=== PATIENT | male | born 1940 | race Caucasian/White ===

== ENCOUNTER 2016-09-17 10:31 | Outpatient (CLI) | payer MEDICARE, OTHER ==
[~2016-09-17] VITALS: Ht 175.3 cm; Wt 79.5 kg
--- NOTE | ~2016-09-17 | HEMODYNAMI ---
PATIENT:JAZMIN SEGOVIA MEDICAL RECORD: [id number] : 38 LOCATION:[facility] D.2114 ADMISSION DATE: 09/17/16 Generatedon:09/17/201615:45 Patient name: JAZMIN SEGOVIA Patient #: [id number] SSN: : Date of study: 09/17/2016 Page: Of Hemodynamic Procedure Report Patient Data Patient Demographics Procedure consent was obtained First Name: JAZMIN Gender: Male Last Name: JULIETTE : 1940 [facility] Initial: E Age: 76 year(s) Patient #: [id number] Race: Additional ID: [id number] Contact details [address]: [address] [place] [address] State: [place] City: [place] Zip code: [address] Past Medical History History of disease Date Diagnosis Comments CAD Admission Admission Data Admission Date: 09/17/2016 Admission Time: 11:13 Room #: D.2114 Procedure Procedure Types Cath Procedure Diagnostic Procedure [facility] w/Coronaries FFR/IVUS Intra-Coronary IVUS Initial Intra-Coronary IVUS Additional PCI Procedure Coronary Stent Initial Miscellaneous Procedures Moderate Sedation up to 30 minutes Procedure Description Procedure Date Procedure Date: 09/17/2016 Procedure Start Time: 15:22 Procedure End Time: 15:44 Procedure Staff Name Function Ayo Starkey MD Performing Physician Carolann Jacobsen RN Nurse Jeff Meyrs RT Monitor Carlos A Freeman RT Scrub Procedure Data Cath Procedure Fluoroscopy Diagnostic fluoroscopy Total fluoroscopy Time: 4.1 time: 4.1 min min Diagnostic fluoroscopy Total fluoroscopy dose: 872 dose: 872 mGy mGy Contrast Material Contrast Material Type Amount (ml) Isovue 300 90 Entry Location Entry Primary Successful Side Size Upsize Upsize Entry Closure Succes sful Closure Location (Fr) 1 (Fr) 2 (Fr) Remarks Device Remarks Femoral Right 5 Fr 6 Fr Exoseal artery Short Estimated blood loss: 10 ml Diagnostic catheters Device Type Used For End Catheter Placement Cordis 5Fr Pigtail Procedure Catheter (MP) Cordis 5Fr JL 4.0 Procedure Catheter (MP) Cordis 5Fr 3DRC Catheter Procedure (MP) Procedure Complications No complications Procedure Medications Medication Administration Route Dosage Oxygen NC 2 l/min Heparin Flush Bag added to field 2 bags (1000units/500ml NS) Lidocaine 2% added to field 20 Versed I.V. 1 mg Fentanyl I.V. 50 mcg Versed I.V. 1 mg Fentanyl I.V. 50 mcg Heparin Bolus I.V. 4000 units Hemodynamics Rest Heart Rate: 51 (bpm) Snapshots Pre Cath Intra NCS Post Cath Vital Signs Time Heart Resp SPO2 NIBP (mmHg) Rhythm Pain Sedation Rate (ipm) (%) Status Level (bpm) 15:10:45 58 17 98 134/72(108) NSR 0 (11) 10(A) , No pain 15:14:53 60 21 99 132/78(111) NSR 0 (11) 10(A) , No pain 15:19:04 58 20 98 121/71(91) NSR 0 (11) 10(A) , No pain 15:23:14 59 18 96 121/56(83) NSR 0 (11) 9(A) , No pain 15:27:20 60 15 96 120/72(82) NSR 0 (11) 9(A) , No pain 15:31:26 58 15 96 117/69(83) NSR 0 (11) 9(A) , No pain 15:35:34 60 15 96 102/63(76) NSR 0 (11) 9(A) , No pain 15:40:10 60 16 100 130/63(96) NSR 0 (11) 9(A) , No pain Medications Time Medication Route Dose Verified Delivered Reason Notes Effectiveness by by 15:09:41 Oxygen NC 2 Ayo Carolann Per physician l/min Lalito Jacobsen RN 15:09:48 Heparin Flush added 2 Ayo Rollins used for Bag to bags Lalito Starkey MD procedure (1000units/500ml field NS) 15:09:55 Lidocaine 2% added 20ml Ayo Rollins used for to vial Lalito Starkey MD procedure field 15:16:44 Versed I.V. 1 mg Ayo Carolann for sedation Lalito Jacobsen RN 15:16:50 Fentanyl I.V. 50 Ayo Carolann for sedation mcg Lalito Jacobsen RN 15:18:26 Versed I.V. 1 mg Ayo Carolann for sedation Lalito Jacobsen RN 15:18:28 Fentanyl I.V. 50 Ayo Carolann for sedation mcg Lalito Jacobsen RN 15:29:00 Heparin Bolus I.V. 4000 Ayo Clarosecca for dose units Lalito Jacobsen RN anticoagulation verified wtih dr starkey Procedure Log Time Note 14:40:30 Jeff Myers RT(R) sent for patient. Start room use. 14:45:31 Time tracking: Regular hours 14:45:35 Plan of Care:Hemodynamics will remain stable., Cardiac rhythm will remain stable., Comfort level will be maintained., Respiratory function will remain adequate., Patient/ family verbilizes understanding of procedure., Procedure tolerated without complication., Recovers from procedure without complications.. 15:05:35 Patient received from PCU to [facility] 2 Alert and oriented. Tansferred to table in Supine position. 15:05:36 Warm blankets applied, and jose maria hugger turned on for patient comfort. 15:05:37 Correct patient and procedure confirmed by team. 15:05:38 Signed procedure consent form obtained from patient. 15:05:39 ECG and BP/O2 sat monitors applied to patient. 15:09:30 Vital chart was started 15:09:41 Oxygen 2 l/min NC was administered by Carolann Jacobsen RN; Per physician; 15:09:48 Heparin Flush Bag (1000units/500ml NS) 2 bags added to field was administered by Ayo Starkey MD; used for procedure; 15:09:55 Lidocaine 2% 20ml vial added to field was administered by Ayo Starkey MD; used for procedure; 15:15:32 Baseline sample Acquired. 15:15:38 Rhythm: sinus bradycardia 15:15:39 Full Disclosure recording started 15:15:43 H&P Date Dictated: 09/17/2016 Within 30 days and on chart.. 15:15:43 Pre-procedure instructions explained to patient. 15:15:44 Pre-op teaching completed and patient verbalized understanding. 15:15:45 Family in waiting room. 15:15:46 Patient NPO since Midnight. 15:15:47 Is the patient allergic to Iodine/contrast media? No. 15:15:48 Is patient on blood thinner?Yes 15:15:51 ACC The patient was administered the following blood thiners within the last 24 hours: ACCPlavix 15:15:53 Patient diabetic? No. 15:15:55 Previous problem with sedation/anesthesia? No ? 15:15:56 Snore? No 15:15:57 Sleep apnea? No 15:15:58 Deviated septum? No 15:15:58 Opens mouth fully? Yes 15:15:59 Sticks out tongue? Yes 15:16:01 Airway obstruction? No ? 15:16:06 Dentures? Yes IN 15:16:09 Pre procedure: right dorsailis pedis pulse 1+ Palpable, but thready & weak; easily obliterated 15:16:12 Patient pain scale 0/10 ?. 15:16:16 IV patent on arrival in right forearm with 0.9% NaCl at KVO. 15:16:18 Lab results completed and on chart. 15:16:20 Right groin area was prepped with chlora-prep and draped in sterile fashion 15:16:21 Alarms reviewed by R. N. 15:16:21 Sharps counted by scrub and verified by R.N. 15:16:22 --------ALL STOP TIME OUT------ 15:16:23 Final Timeout: patient, procedure, and site verified with staff and physician. All members of the team are in agreement. 15:16:25 Right groin site verified by team. 15:16:29 Physical assessment completed. ASA score P 2 - A patient with mild systemic disease as per Ayo Starkey MD. 15:16:32 Sedation plan: IV Moderate Sedation Versed, Fentanyl 15:16:44 Versed 1 mg I.V. was administered by Carolann Jacobsen RN; for sedation; 15:16:50 Fentanyl 50 mcg I.V. was administered by Carolann Jacobsen RN; for sedation; 15:18:26 Versed 1 mg I.V. was administered by Carolann Jacobsen RN; for sedation; 15:18:28 Fentanyl 50 mcg I.V. was administered by Carolann Jacobsen RN; for sedation; 15:18:33 Zero performed for pressure channel P1 15:18:36 Use device set Femoral Dx 15:18:38 Tegaderm 4 x 4 opened to sterile field. 15:18:39 Acist Hand Control opened to sterile field. 15:18:39 Acist Manifold opened to sterile field. 15:18:40 Acist Syringe opened to sterile field. 15:18:41 Bag Decanter opened to sterile field. 15:18:42 Medline Cath Pack opened to sterile field. 15:18:42 Terumo 5Fr [place] Sheath opened to sterile field. 15:18:42 St Arnold 260cm J .035 wire opened to sterile field. 15:18:43 Diagnostic Infinity 5Fr Multipack catheter opened to sterile field. 15:22:20 Procedure started. 15:22:23 Local anesthetic to right femoral artery with Lidocaine 2% by Ayo Starkey MD.INITIAL ACCESS ONLY 15:22:32 A 5 Fr sheath was inserted into the Right Femoral artery 15:22:54 A Cordis 5Fr Pigtail Catheter (MP) was advanced over the wire and used for Procedure. 15:23:24 LV angiography performed. 15:23:25 LV gram done using PHILIP 15:23:44 EF : 25 % 15:23:58 LV hemodynamics recorded. 15:24:02 Injector settings: Ml/sec: 10, Volume: 20, 15:24:14 Catheter removed. 15:24:32 A Cordis 5Fr JL 4.0 Catheter (MP) was advanced over the wire and used for Procedure. 15:25:09 LCA angiography performed. 15:25:22 Catheter removed. 15:25:33 A Cordis 5Fr 3DRC Catheter (MP) was advanced over the wire and used for Procedure. 15:26:07 RCA angiography performed. 15:26:22 Catheter removed. 15:27:23 Terumo 6Fr [place] Sheath opened to sterile field. 15:27:24 Rodriguez Whisper J 300cm 0.014 guide wire opened to sterile field. 15:27:25 Rentamus BasixCompak Inflation Kit opened to sterile field. 15:27:26 Cordis 6FR XBLAD 3.5 guide catheter opened to sterile field. 15:27:26 Verndale Hoh Eagleye IVUS Catheter opened to sterile field. 15:27:39 Sheath upsized to a 6 Fr Short. 15:28:05 6 Fr XBLAD 3.5 guide catheter was inserted over the wire 15:29:00 Heparin Bolus 4000 units I.V. was administered by Carolann Jacobsen RN; for anticoagulation; dose verified wtih dr starkey 15:29:00 Whisper wire advanced. 15:29:41 Wire advanced across lesion. 15:30:02 IVUS catheter advanced over wire. 15:30:48 IVUS pass to LAD lesion performed. 15:31:27 Wire redirected to CIRC. 15:31:34 IVUS pass to Circ lesion performed. 15:31:43 IVUS catheter removed over wire. 15:32:11 Wire redirected to LAD. 15:35:14 Inflation Number: 1 A Medtronic Resolute 3.5 X 22 stent was prepped and advanced across the Mid LAD. The stent was deployed at 17 MEENAKSHI for 0:10 (min:sec). 15:35:32 Inflation number: 2 The stent balloon was then re-inflated across the Mid LAD to 17 MEENAKSHI for 0:10 (min:sec). 15:37:45 ACC Post-intervention ANA Flow is 3. 15:37:46 Stent catheter was removed intact over wire. 15:37:46 Wire removed. 15:37:46 Guide catheter removed. 15:38:11 Sheath removed intact; hemostasis achieved with Exoseal to the Right Femoral artery. 15:38:15 Cordis 6Fr Exoseal opened to sterile field. 15:38:18 Procedure ended.(Physican Out) 15:38:42 Fluoroscopy time 04.10 minutes. 15:38:45 Fluoroscopy dose: 872 mGy 15:38:45 Flurop Dose total: 872 15:38:49 Contrast amount:Isovue 300 90ml. 15:38:50 Sharps counted by scrub and verified by R.N. 15:38:52 Insertion/operative site no bleeding no hematoma. 15:39:27 Post-op/insertion site Right Femoral artery dressed using a 4 x 4 and Tegaderm. 15:39:28 Post Procedure Pulses reassessed and unchanged 15:39:32 Post-procedure physical assessment completed. ASA score P 2 - A patient with mild systemic disease as per Ayo Starkey MD. 15:39:34 Post procedure rhythm: unchanged. 15:39:36 Estimated blood loss: 10 ml 15:39:38 Post procedure instruction explained to patient.Patient verbalizes understanding. 15:39:39 Patient needs reinforcement of post procedure teaching. 15:40:09 Procedure type changed to Cath procedure, Diagnostic procedure, LHC, LHC w/Coronaries, FFR/IVUS, Intra-Coronary IVUS Initial, Intra-Coronary IVUS Additional, PCI procedure, Coronary Stent Initial, Miscellaneous Procedures, Moderate Sedation up to 30 minutes 15:40:19 Procedure Complication : No complications 15:40:51 Procedure and supply charges have been captured, reviewed, submitted and are correct. 15:43:53 Vital chart was stopped 15:43:54 See physician's report for complete and final results. 15:43:58 Report given to PCU. 15:44:02 Patient transfered to PCU with Stretcher. 15:44:05 Procedure ended. 15:44:05 Full Disclosure recording stopped 15:44:15 ACC-PCI Only Patient was given prescriptions, or instructed by Ayo Starkey MD to start/continue the following medications upon discharge: Aspirin, Plavix 15:44:16 End room use (Document Last) Intervention Summary Intervention Notes Time ActionType Lesion and Equipment Action# Pressure Duration Attributes Used 15:35:14 Place stent Mid LAD Medtronic 1 17 00:10 Resolute 3.5 X 22 stent 15:35:32 Reinflate Mid LAD Medtronic 2 17 00:10 stent Resolute balloon 3.5 X 22 stent Device Usage Item Name Manufacture Quantity Catalog Hospital Part Current Minimal Lot# / Number Charge Number Stock Stock Serial# Code Tegaderm 4 3M 1 1626W [id number] [id number] [id number] 5 x 4 Acist Hand Acist 1 97493 973890 546922 582454 5 Control Medical Systems Inc Acist Acist 1 00083 650261 593429 420424 5 Manifold Medical Systems Inc Acist Acist 1 28517 960466 597330 479865 20 Syringe Medical Systems Inc Bag Microtek 1 2002S 143901 29233 760011 5 DecLaimoon.[employer] Inc. Medline Cardinal 1 [id number] 299179 53446 386855 5 Cashually Terumo 5Fr Terumo 1 [id number] 806420 569455 157993 [address] Arnold 1 006357 507132 879756 359049 30 260cm J .035 wire Diagnostic Cardinal 1 [id number] 761180 44158 088106 30 Infinity Health 5Fr Multipack catheter Cordis 5Fr Cardinal 1 098951 5 Pigtail Health Catheter (MP) Cordis 5Fr Cardinal 1 904702 5 JL 4.0 Health Catheter (MP) Cordis 5Fr Cardinal 1 041049 5 3DRC Health Catheter (MP) Terumo 6Fr Terumo 1 POX159 536333 106109 892962 40 [place] Sheath Rodriguez Rodriguez 1 [id number] 607601 652740 431868 5 Whisper J Vascular 300cm 0.014 guide wire Merit Merit 1 QA0065 308170 538573 490809 15 STinserixEco-Source Technologies Medical Inflation Kit Cordis 6FR Cardinal 1 [id number] 437378 350307 823323 10 XBLAD 3.5 Health guide catheter Verndale Verndale 1 [id number] 890627 235915 678376 8 Hoh Eagleye IVUS Catheter Medtronic Medtronic 1 [id number] 602233 880874 5 [id number] Resolute 3.5 X 22 stent Cordis 6Fr Cardinal 1 EX600 343978 409687 266604 10 [facility] Metara Signature Audit [place] Stage Time Signature Unsigned Intra-Procedure 09/17/2016 Jeff Myers 3:45:31 PM RT(R) Signatures Monitor : Jeff Myers RT Signature : Date : Time : [address] [place] [address]
[2016-09-17 08:47] LABS: BASOPHILS 0.4 % (0.0-2.0); EOSINOPHILS 2.2 % (0-7); HEMOGLOBIN 14.1 g/dL (13.5-17.5); IMMATURE GRANULOCYTES 0.2 % (0-5); LYMPHOCYTES 17.9 % (15-50); MCH 28.1 pg (26.0-34.0); MCHC 32.8 g/dL (31.0-37.0); MCV 85.7 fL (80.0-100.0); MEAN PLATELET VOLUME 10.1 fL (7.4-10.4); MONOCYTES 10.2 % (2-11); NEUTROPHILS 69.1 % (40-80); PLATELET COUNT 246 10x3/uL (130-400); RBC 5.02 10x6/uL (4.20-6.10); RDW 15.7 % (11.5-14.5)
[2016-09-17 09:12] LABS: ALBUMIN 3.9 g/dL (3.4-5.0); ALKALINE PHOSPHATASE 64 U/L (46-116); ALT (SGPT) 23 U/L (10-68); BILIRUBIN - TOTAL 1.12 mg/dL (0.2-1.3); CALC OSMOLALITY 266 mosm/kg (275-300); CALCIUM 9.1 mg/dL (8.5-10.1); CARBON DIOXIDE 26.9 mmol/L (21.0-32.0); CHLORIDE - SERUM 100 mmol/L (98-107); CREATININE - SERUM 0.9 mg/dL (0.6-1.3); GLUCOSE 102 mg/dL (74-106); POTASSIUM - SERUM 3.8 mmol/L (3.5-5.1); PROTEIN - SERUM 7.1 g/dL (6.4-8.2); SODIUM 134 mmol/L (136-145); UREA NITROGEN 10 mg/dL (7-18); eGFR NON AFRICAN AMERICAN 87 mL/min (90-120)
[2016-09-17 09:15] LABS: CHOL - HDL RATIO 3.3 ratio (2.3-4.9); CHOLESTEROL, TOTAL 149 mg/dL (0-200); CKMB 1.9 U/L (0.0-3.6); CREATINE KINASE 109 UL (21-232); HDL CHOLESTEROL 45 mg/dL (32-96); LDL CHOLESTEROL 89 mg/dL (0-100); TRIGLYCERIDE 77 mg/dL (30-200); TROPONIN-I 0.022 ng/mL (0.000-0.060)
[~2016-09-17 10:31] MED LIST: BAYER CHEWABLE81 MG PO; COREG 3.1253.125 MG PO; PLAVIX75 MG PO; VASOTEC5 MG PO
--- NOTE | 2016-09-17 12:05 | NUR ---
TRANSFER FROM ER BY W/C. DAVIDINTED TO ROOM. CALL LIGHT IN REACH. WILL CONT. PLAN OF CARE.
[2016-09-17] MEDS ORDERED: LIVALO2 MG PO (12:13)
[2016-09-17] MEDS ORDERED: VASOTEC2.5 MG PO (12:13)
[2016-09-17] MEDS ORDERED: NORMODYNE / TR200 MG PO (12:17)
[2016-09-17 12:26] VITALS: BP 117/61; Ht 175.3 cm; Wt 79.5 kg
--- NOTE | 2016-09-17 14:54 | NUR ---
PRE-OPS GIVEN. TO NETWORK TECHNICAL ANALYST BY BED.
--- NOTE | 2016-09-17 16:02 | NUR ---
BACK FROM EVISCERATOR. VS WNL. RIGHT GROIN STABLE WITHOUT BLEEDING OR HEMATOMA NOTED. WILL MONITOR.
[2016-09-17 16:18] VITALS: BP 114/61
[2016-09-17] MEDS ORDERED: PLAVIX75 MG PO (16:38)
[2016-09-17 20:00] VITALS: BP 111/63
--- NOTE | 2016-09-19 08:41 | OP ---
PATIENT NAME: JAZMIN SEGOVIA MEDICAL RECORD: [id number] :38 LOCATION:[facility] ADMISSION DATE: SURGEON: DANYELL CARRILLO MD DATE OF OPERATION: 09/17/2016 PROCEDURES: 1. PTCA stent, LAD. 2. Intravascular ultrasound, LAD. 3. Intravascular ultrasound, left circumflex. 4. Left heart catheterization. 5. Selective coronary angiography. 6. Left ventriculogram. INDICATIONS: Angina and coronary artery disease. PROCEDURE IN DETAIL: After informed consent was obtained and after detailed explanation of risks, benefits as well as alternative therapies, the patient elected to proceed with angiogram and angioplasty. The right femoral area was prepped and draped in normal sterile fashion. The right femoral artery was cannulated via modified Seldinger technique with placement of 6-Prydeinig sheath. All catheters exchanged through this sheath. FINDINGS: Left ventriculogram was performed in standard 30-degree PHILIP view, reveals global hypokinesis throughout all segments. Overall ejection fraction 25%-30%. SELECTIVE CORONARY ANGIOGRAPHY: 1. Left main is with no significant angiographic disease. 2. Left anterior descending has greater than 70% stenosis confirmed by intravascular ultrasound in the proximal vessel. This is not stented. After this, there are stents, these are widely patent with no significant in-stent restenosis. No disease elsewise throughout the LAD or its branches. 3. Left circumflex has previously placed stents. These are widely patent with no significant restenosis. This is confirmed by intravascular ultrasound. No disease elsewhere throughout the circumflex or its branches. 4. Right coronary is small, nondominant with moderate diffuse disease. PTCA STENT OF THE LAD: The stent used was a 3.5 x 22-mm Resolute taken to 17 atmospheres. Result was 0% residual stenosis. OVERALL IMPRESSION: Successful percutaneous transluminal coronary angioplasty stent of the left anterior descending going from greater than 70% initial stenosis confirmed by intravascular ultrasound to 0% residual stenosis. TRANSINT:[id number] Voice Confirmation ID: [id number] DOCUMENT ID: [id number] DANYELL CARRILLO MD at 0841 CC: [id number] DICTATION DATE: 09/17/16 1543 CORE ASSEMBLY SUPERVISOR: 09/17/162049 [facility] CLI 09/17/16 [address] [place] [address]
--- NOTE | 2016-09-19 08:41 | DS ---
PATIENT:JAZMIN SEGOVIA :38 MEDICAL RECORD: [id number] DISCHARGE SUMMARY ADMISSION DATE: 09/17/16 DISCHARGE DATE: 09/17/16 DISCHARGE DIAGNOSES: 1. Angina. 2. Coronary artery disease. 3. Percutaneous transluminal coronary angioplasty stent of left anterior descending this admission. 4. Hypertension. HOSPITAL COURSE: Mr. Segovia presents with anginal symptomatology, found to have significant disease of the LAD. He underwent successful PTCA stent of the LAD. He was discharged home with the addition of aspirin and Plavix to his medical regimen. He will follow up with [facility] in 1 month. TRANSINT:[id number] Voice Confirmation ID: [id number] DOCUMENT ID: [id number] DANYELL CARRILLO MD at 0841 CC: [id number] DICTATION DATE: 09/17/16 1541 CONFIGURATOR: 09/18/16 0317 [facility] CLI 09/17/16 [address] [place] [address]
--- NOTE | 2016-09-19 08:41 | HP ---
PATIENT: JAZMIN SEGOVIA MEDICAL RECORD: [id number] ACCOUNT: [id number] LOCATION:[facility] : 38 ADMISSION DATE: 09/17/16 HISTORY AND PHYSICAL EXAMINATION DATE OF SERVICE: 09/17/2016 DIAGNOSES: 1. Unstable angina. 2. Coronary artery disease. 3. Previous multivessel percutaneous transluminal coronary angioplasty stent. 4. Hypertension. HISTORY OF PRESENT ILLNESS: This is a gentleman who is known to our group, status post PTCA stent, last being 1 year ago. He has had 2 days of increasing chest pain, chest discomfort compatible with angina, just like that of his previous pain. He has T-wave inversions laterally and inferiorly on his EKG. PHYSICAL EXAMINATION: GENERAL APPEARANCE: Well-nourished, well-developed, appears stated age. Level of distress, comfortable. PSYCHIATRIC: Mental status, alert, normal affect. Orientation, oriented to time, place and person. EYES: Lids and conjunctiva, noninjected. No discharge, no pallor. ENT: Lips, teeth, gums, normal dentition. Oropharynx, no cyanosis, no pallor. NECK: Carotid arteries, bilateral normal upstroke, no bruits, no thrills. JUGULAR VEINS: No jugular venous pressure or distention. CERVICAL LYMPH NODES: Nontender, nonenlarged. THYROID: Not enlarged. Nontender. No nodules. LUNGS: Respiratory effort, unlabored. CHEST: Normal curvature. No thoracic deformity. No chest wall tenderness. Percussion, resonant. Auscultation, clear. No wheezes, no rales, no rhonchi. CARDIOVASCULAR: Precordial exam, nondisplaced. No heaves or pericardial thrills. Rate and rhythm, regular. Heart sounds, normal S1, normal S2. No S3, no gallop, no rub. Systolic murmur, not heard. Diastolic murmur, not heard. EXTREMITIES: No cyanosis, no edema. Peripheral pulses, full and equal in all extremities, except as noted. No bruits appreciated. ABDOMEN: Soft, nondistended. Normal aorta. No bruit. Nontender. No masses. Liver, nontender, no hepatomegaly. Spleen, nontender, no splenomegaly. MUSCULOSKELETAL: No joint tenderness. No joint swelling. No erythema. NEUROLOGICAL: Normal gait, normal strength, normal tone. SKIN: Warm and dry. REVIEW OF SYSTEMS: The patient reports easy bruising but reports no swollen glands. The patient reports no fever, no night sweats, no significant weight gain, no significant weight loss. No significant exercise tolerance. The patient reports no dry eyes, no irritation, no vision change. Patient reports no difficulty hearing and no ear pain. Patient reports no frequent nose bleeds or nose and sinus problems. Patient reports on arm pain on exertion. No shortness of breath while lying down. No history of heart murmur. Patient reports no cough, no wheezing or coughing up blood. Patient reports no abdominal pain, no vomiting. Normal appetite. No diarrhea and not vomiting blood. No nausea and no constipation. Patient reports no incontinence. No difficulty urinating. No hematuria. No increased frequency. Patient reports no muscle aches. No weakness, no arthralgias, no back pain. No swelling of the HISTORY AND PHYSICAL [id number] JAZMIN SEGOVIA extremities. Patient reports no abnormal mole, no jaundice, no rashes. Reports no loss of consciousness. No weakness and no numbness. No seizures, dizziness, or headaches. The patient reports no depression, no sleep disturbance, feeling safe in a relationship and no alcohol abuse. Patient reports on fatigue. Reports no runny nose or sinus pressure. No itching, no hives, and no frequent sneezing. OVERALL IMPRESSION: Unstable angina with abnormal ECG, most likely he has recurrent hemodynamically significant coronary artery disease. We will proceed with coronary angiography. Further care depends upon findings of the angiography. TRANSINT:[id number] Voice Confirmation ID: [id number] DOCUMENT ID: [id number] DANYELL CARRILLO MD at 0841 CC: [id number] DICTATION DATE: 09/17/16 1105 SOLUTION CONSULTANT: 09/17/16 1157 [facility] CLI 09/17/16 [facility] [address] [place] [address]
== END 2016-09-17 20:45 | disposition home or self-care (01) ==
LOC: OBSVTIME → D.OPS 10:31 → OBSVTIME 11:13 → D.ER 11:13 → D.M2 11:13 → EDSTATUS 12:30 → D.M2 20:45 → D.OPS 20:45 → D.M2 20:45
PROVIDERS: Emergency Medicine
DX: I25.110 Atherosclerotic heart disease of native coronary artery with unstable angina pectoris (principal); Z95.5 Presence of coronary angioplasty implant and graft; I10 Essential (primary) hypertension
CPT/HCPCS: 93458; 92978; 92979; C9600

== ENCOUNTER 2017-02-08 11:58 | Emergency (ER) | payer MEDICARE, OTHER ==
[~2017-02-08 11:58] MED LIST changes: +LIVALO2 MG PO; +NORMODYNE / TR200 MG PO; +VASOTEC2.5 MG PO
== END 2017-02-08 13:10 | disposition home or self-care (01) ==
LOC: D.ER 11:58
DX: S61.012A Laceration without foreign body of left thumb without damage to nail, initial encounter (principal); W26.9XXA Contact with unspecified sharp object(s), initial encounter; Y93.89 Activity, other specified; Y92.89 Other specified places as the place of occurrence of the external cause

== ENCOUNTER → 2017-02-21 09:14 | Outpatient (CLI) | payer MEDICARE, OTHER ==
[2016-09-17 12:26] VITALS: BMI 25.9
== END | disposition home or self-care (01) ==
LOC: D.RAD 09:14
DX: R06.00 Dyspnea, unspecified (principal)

== ENCOUNTER 2017-11-30 19:31 | Emergency (ER) | payer MEDICARE, OTHER ==
[~2017-11-30] VITALS: Ht 175.3 cm; Wt 77.3 kg
[2017-11-30 19:37] VITALS: Ht 175.3 cm; Wt 77.3 kg
[2017-11-30] MEDS ORDERED: COREG6.25 MG PO (19:39)
[2017-11-30 20:14] LABS: BASOPHILS 0.4 % (0-2); EOSINOPHILS 4.9 % (0-7); HEMATOCRIT 42.1 % (42.0-54.0); HEMOGLOBIN 14.2 g/dL (13.5-17.5); IMMATURE GRANULOCYTES 0.1 % (0-5); LYMPHOCYTES 33.9 % (15-50); MCH 29.1 pg (26.0-34.0); MCHC 33.7 g/dL (31.0-37.0); MCV 86.3 fL (80.0-100.0); MEAN PLATELET VOLUME 9.6 fL (7.4-10.4); MONOCYTES 10.5 % (2-11); NEUTROPHILS 50.2 % (40-80); PLATELET COUNT 283 10x3/uL (130-400); RBC 4.88 10x6/uL (4.20-6.10); RDW 14.8 % (11.5-14.5); WBC 7.7 10x3/uL (4.8-10.8)
[2017-11-30 20:22] LABS: ALBUMIN 3.6 g/dL (3.4-5.0); ALKALINE PHOSPHATASE 60 U/L (46-116); ALT (SGPT) 23 U/L (10-68); BILIRUBIN - TOTAL 1.03 mg/dL (0.2-1.3); CALC OSMOLALITY 275 mosm/kg (275-300); CALCIUM 9.1 mg/dL (8.5-10.1); CARBON DIOXIDE 27.5 mmol/L (21.0-32.0); CHLORIDE - SERUM 102 mmol/L (98-107); GLUCOSE 113 mg/dL (74-106); POTASSIUM - SERUM 3.9 mmol/L (3.5-5.1); SODIUM 138 mmol/L (136-145); UREA NITROGEN 10 mg/dL (7-18); eGFR NON AFRICAN AMERICAN 77 mL/min (90-120)
[2017-11-30 20:34] LABS: CKMB 1.7 U/L (0.0-3.6); CREATINE KINASE 124 UL (21-232); PRO BNP 1040 pg/mL (0-450); TROPONIN-I < 0.017 ng/mL (0.000-0.060)
[2017-11-30 21:31] VITALS: BP 114/65
== END 2017-11-30 21:32 | disposition home or self-care (01) ==
LOC: D.ER 19:31
PROVIDERS: Family Medicine
DX: I48.91 Unspecified atrial fibrillation (principal); R07.9 Chest pain, unspecified; I50.9 Heart failure, unspecified; Z95.0 Presence of cardiac pacemaker; I10 Essential (primary) hypertension; I49.3 Ventricular premature depolarization; I44.7 Left bundle-branch block, unspecified

== ENCOUNTER 2018-12-08 10:37 | Inpatient (IN) | payer MEDICARE, OTHER ==
--- NOTE | ~2018-12-08 | HEMODYNAMI ---
PATIENT:JAZMIN SEGOVIA MEDICAL RECORD: [id number] : 38 [id number] ADMISSION DATE: 12/08/18 Generatedon:12/09/201811:55 Patient name: JAZMIN SEGOVIA Patient #: [id number] SSN: : Date of study: 12/09/2018 Page: Of Hemodynamic Procedure Report Patient Data Patient Demographics Procedure consent was obtained First Name: JAZMIN Gender: Male Last Name: JULIETTE : 1940 [facility] Initial: E Age: 78 year(s) Patient #: [id number] Race: Additional ID: [id number] Contact details [address]: [address] [place] [address] State: [place] City: [place] Zip code: [address] Past Medical History History of disease Date Diagnosis Comments CAD Admission Admission Data Admission Date: 12/08/2018 Admission Time: 12:13 Room #: D.2131 Weight (lbs.): 171.96 Weight (kg.): 78 Lab Results Lab Result Date: 12/09/2018 Lab Result Time: 0:00 Biochemistry Name Units Result Min Max BUN mg/dl 14 --(--*-)-- 7 18 Creatinine mg/dl 0.9 --(-*--)-- 0.6 1.3 CBC Name Units Result Min Max Hemoglobin g/dl 14.1 --(*---)-- 13.5 17.5 Procedure Procedure Types Cath Procedure Diagnostic Procedure LHC LHC w/Coronaries FFR/IVUS FFR Initial Sedation Charges Moderate Sedation up to 15 minutes PCI Procedure Coronary Stent Coronary Stent Initial Procedure Description Procedure Date Procedure Date: 12/09/2018 Procedure Start Time: 11:38 Procedure End Time: 11:54 Procedure Staff Name Function Ayo Starkey MD Performing Physician Guillermina Alejo RT Monitor Carole Rod RN Nurse Jeff Myers RT Scrub Procedure Data Cath Procedure Fluoroscopy Diagnostic fluoroscopy Total fluoroscopy Time: 2.7 time: 2.7 min min Diagnostic fluoroscopy Total fluoroscopy dose: 792 dose: 792 mGy mGy Contrast Material Contrast Material Type Amount (ml) Isovue 300 80 Entry Location Entry Primary Successful Side Size Upsize Upsize Entry Closure Succes sful Closure Location (Fr) 1 (Fr) 2 (Fr) Remarks Device Remarks Femoral Right 5 Fr 6 Fr Exoseal artery Short Estimated blood loss: 5 ml Diagnostic catheters Device Type Used For End Catheter Placement MULTIPACK Pigtail 5 Fr LV Angiography catheter MULTIPACK JL 4.0 5Fr Left Coronary catheter Angiography MULTIPACK 3DRC 5Fr Right Coronary catheter Angiography Procedure Complications No complications Procedure Medications Medication Administration Route Dosage 0.9% NaCl I.V. 100 ml/hr Oxygen etCO2 Nasal cannula 2 l/min Lidocaine 2% added to field 20 Heparin Flush Bag added to field 2 bags (1000units/500ml NS) Versed I.V. 2 mg Fentanyl I.V. 50 mcg Versed I.V. 1 mg Fentanyl I.V. 50 mcg Dobutamine I.V. drip 5 mcg/kg/min (500mg/250ml D5W) Heparin Bolus I.V. 4000 units Plavix P.O. 75 mg Hemodynamics Rest HGB: 14.1 (g/dl) Heart Rate: 75 (bpm) Pressure Samples Time Site Value (mmHg) Purpose Heart Use Rate(bpm) 11:40 LV 78/-6,4 Snapshot 55 Snapshots Pre Cath Intra NCS Post Cath Vital Signs Time Heart Resp SPO2 etCO2 NIBP (mmHg) Rhythm Pain Sedation Rate (ipm) (%) (mmHg) Status Level (bpm) 10:55:30 65 20 97 21 138/79(102) NSR 0 (11) 10(A) , No pain 10:59:14 72 21 99 23.8 129/78(99) NSR 0 (11) 10(A) , No pain 11:03:17 73 27 98 22.3 142/83(109) NSR 0 (11) 10(A) , No pain 11:07:13 70 21 97 13.4 107/58(75) NSR 0 (11) 10(A) , No pain 11:11:21 70 19 97 20.8 128/77(91) NSR 0 (11) 10(A) , No pain 11:15:08 68 19 97 20.1 121/71(92) NSR 0 (11) 10(A) , No pain 11:18:51 67 17 98 23 115/79(91) NSR 0 (11) 10(A) , No pain 11:22:37 60 16 97 23.8 119/69(91) NSR 0 (11) 9(A) , No pain 11:26:28 63 17 96 17.8 116/57(83) NSR 0 (11) 9(A) , No pain 11:30:24 67 16 96 17.1 109/53(83) NSR 0 (11) 9(A) , No pain 11:34:36 64 16 97 23.8 114/74(92) NSR 0 (11) 9(A) , No pain 11:38:21 63 16 97 23.8 104/75(92) NSR 0 (11) 9(A) , No pain 11:42:47 60 15 98 19 105/56(78) NSR 0 (11) 9(A) , No pain 11:47:09 64 13 97 19.3 110/62(87) NSR 0 (11) 9(A) , No pain 11:51:27 71 13 96 28.2 141/76(103) NSR 0 (11) 10(A) , No pain Medications Time Medication Route Dose Verified Delivered Reason Notes Effectiveness by by 10:54:44 0.9% NaCl I.V. 100 ml/hr Ayo Carole used for Lalito Rod telecommunications field engineer 10:54:50 Oxygen etCO2 2 l/min Ayo Carole used for Nasal Lalito Rod procedure cannula RN 10:54:58 Lidocaine 2% added 20ml vial Ayo Carole for local to Lalito Rod anesthetic field RN 10:55:02 Heparin Flush added 2 bags Ayo Carole used for Bag to Lalito Rod procedure (1000units/500ml field RN NS) 11:14:38 Versed I.V. 2 mg Ayo Carole for sedation Lalito Rod RN 11:14:47 Fentanyl I.V. 50 mcg Ayo Carole for sedation Lalito Rod RN 11:19:29 Versed I.V. 1 mg Ayo Carole for sedation Lalito Rod RN 11:19:35 Fentanyl I.V. 50 mcg Ayo Carole for sedation Lalito Rod RN 11:45:03 Dobutamine I.V. 5 Ayo Lam Per physician (500mg/250ml drip mcg/kg/min Lalito Rod D5W) RN 11:49:47 Heparin Bolus I.V. 4000 units Ayo Lam for verified Lalito Rod anticoagulation with Dr. LILLY Starkey 11:50:23 Plavix P.O. 75 mg Ayo Lam for Lalito Rod antiplatelet RN therapy Procedure Log Time Note 10:20:05 Jeff Myers RT(R) sent for patient. Start room use. 10:27:06 Time tracking: Regular hours (M-F 7:00 - 5:00) 10:27:10 Plan of Care:Hemodynamics will remain stable., Cardiac rhythm will remain stable., Comfort level will be maintained., Respiratory function will remain adequate., Patient/ family verbilizes understanding of procedure., Procedure tolerated without complication., Recovers from procedure without complications.. 10:27:26 Patient Weight : 171.96 lbs 10:29:40 Lab Result : Hemoglobin 14.1 g/dl 10:29:40 Lab Result : Creatinine 0.9 mg/dl 10:29:40 Lab Result : BUN 14 mg/dl 10:45:02 Patient received from Pre/Post Procedure Room to [facility] 2 Alert and oriented. Tansferred to table in Supine position. 10:45:03 Warm blankets applied, and jose maria hugger turned on for patient comfort. 10:45:04 Correct patient and procedure confirmed by team. 10:45:05 ECG and BP/O2 sat monitors applied to patient. 10:45:05 Signed procedure consent form obtained from patient. 10:54:31 Vital chart was started 10:54:44 0.9% NaCl 100 ml/hr I.V. was administered by Carole Rod RN; used for procedure; 10:54:50 Oxygen 2 l/min etCO2 Nasal cannula was administered by Carole Rod RN; used for procedure; 10:54:58 Lidocaine 2% 20ml vial added to field was administered by Carole Rod RN; for local anesthetic; 10:55:02 Heparin Flush Bag (1000units/500ml NS) 2 bags added to field was administered by Carole Rod RN; used for procedure; 10:58:00 Baseline sample Acquired. 10:58:03 Rhythm: sinus rhythm 10:58:05 Full Disclosure recording started 10:58:16 H&P Date Dictated: 12/08/2018 Within 30 days and on chart., H&P Addendum completed by physician on day of procedure. (MUST COMPLETE FOR ALL OUTPATIENTS). 10:58:17 Pre-procedure instructions explained to patient. 10:58:17 Pre-op teaching completed and patient verbalized understanding. 10:58:19 Family in patients room. 10:58:20 Patient NPO since Midnight. 10:58:22 Is the patient allergic to Iodine/contrast media? No. 10:58:24 Is patient on blood thinner?Yes 10:58:26 ACC The patient was administered the following blood thiners within the last 24 hours: ACCPlavix 10:58:31 Previous problem with sedation/anesthesia? No ? 10:58:33 Snore? Yes 10:58:34 Sleep apnea? No 10:58:35 Deviated septum? No 10:58:36 Opens mouth fully? Yes 10:58:37 Sticks out tongue? Yes 10:58:39 Airway obstruction? No ? 10:58:41 Dentures? No ? 10:58:45 Pre procedure: right dorsailis pedis pulse 1+ Palpable, but thready & weak; easily obliterated 10:58:47 Patient pain scale 0/10 ?. 10:58:50 Lab results completed and on chart. 10:58:53 Right groin area was prepped with chlora-prep and draped in sterile fashion 10:58:54 Alarms reviewed by R. N. 10:58:54 Sharps counted by scrub and verified by R.N. 11:13:17 Physician arrived 11:13:17 Physician arrived 11:13:18 --------ALL STOP TIME OUT------ 11:13:19 Final Timeout: patient, procedure, and site verified with staff and physician. All members of the team are in agreement. 11:13:23 Right groin site verified by team. 11:13:26 Maximum allowable Isovue 370 dose 300ml. Physician notified. (300ml for normal creatinines. For patients with creatinine of 1.7 or higher multiply weight(kg) x 5 divided by creatinine.) 11:13:29 Fire Safety Assessment: A--An alcohol-based skin anteseptic being used preoperatively., C--Open oxygen or nitrous oxide is being used., D--An ESU, laser, or fiber-optic light is being used. 11:13:32 Physical assessment completed. ASA score P 2 - A patient with mild systemic disease as per Ayo Starkey MD. 11:13:35 Sedation plan: IV Moderate Sedation Medication:Versed, Fentanyl 11:13:41 Use device set Femoral Dx 11:13:42 ACIST Syringe (60347) opened to sterile field. 11:13:42 Bag Decanter (2002S) opened to sterile field. 11:13:43 Medline Cath Pack ([id number]) opened to sterile field. 11:13:43 DIAGNOSTIC WIRE .035 260cm J wire (914634) opened to sterile field. 11:13:45 ACIST Hand Control (70988) opened to sterile field. 11:13:45 ACIST Manifold (60607) opened to sterile field. 11:13:46 DIAGNOSTIC Multipack 5Fr catheter set (UR5877) opened to sterile field. 11:13:46 Tegaderm 4 x 4 (1626W) opened to sterile field. 11:13:47 SHEATH 5FR [place] (CYS156) opened to sterile field. 11:14:38 Versed 2 mg I.V. was administered by Carole Rod RN; for sedation; 11:14:47 Fentanyl 50 mcg I.V. was administered by Carole Rod RN; for sedation; :19:29 Versed 1 mg I.V. was administered by Carole Rod RN; for sedation; 11:19:35 Fentanyl 50 mcg I.V. was administered by Carole Rod RN; for sedation; 11:38:24 Procedure started. 11:38:43 Local anesthetic to right femoral artery with Lidocaine 2% by Ayo Starkey MD.INITIAL ACCESS ONLY 11:39:16 A 5 Fr sheath was inserted into the Right Femoral artery 11:40:01 A MULTIPACK Pigtail 5 Fr catheter was advanced over the wire and used for LV Angiography. 11:40:24 LV hemodynamics recorded. 11:40:25 LV gram done using PHILIP 11:40:28 Injector settings: Ml/sec: 5, Volume: 15, 11:40:39 EF : 15 % 11:40:42 Catheter removed. 11:40:48 A MULTIPACK JL 4.0 5Fr catheter was advanced over the wire and used for Left Coronary Angiography. 11:41:17 LCA angiography performed. 11:41:20 Injector settings: Ml/sec: 3, Volume: 6, 11:41:59 Catheter removed. 11:42:06 A MULTIPACK 3DRC 5Fr catheter was advanced over the wire and used for Right Coronary Angiography. 11:42:46 RCA angiography performed. 11:42:50 Injector settings: Ml/sec: 3, Volume: 6, 11:42:51 Catheter removed. 11:42:52 Proceeding to intervention. 11:43:14 SHEATH 6FR [place] (NWR921) opened to sterile field. 11:43:17 GUIDE 6FR XBLAD 3.5 catheter ([id number]) opened to sterile field. 11:43:18 [place] Verrata Plus pressure wire (77562V) opened to sterile field. 11:43:23 INFLATOR Merit BasixCompak (PU2634) opened to sterile field. 11:43:34 Sheath upsized to a 6 Fr Short. 11:43:53 6 Fr xblad 3.5 guide catheter was inserted over the wire 11:44:02 FFR/IFR wire advanced. 11:45:03 Dobutamine (500mg/250ml D5W) 5 mcg/kg/min I.V. drip was administered by Carole Rod RN; Per physician; 11:48:27 Baseline FFR 1. 11:48:29 Wire advanced across lesion. 11:49:17 lad lesion measured at 0.85 with IFR 11:49:47 Heparin Bolus 4000 units I.V. was administered by Carole Rod RN; for anticoagulation; verified with Dr. Starkey 11:50:23 Plavix 75 mg P.O. was administered by Carole Rod RN; for antiplatelet therapy; 11:50:50 Place stent Inflation Number: 1 A ANNE-MARIE RX 2.5 x 26 stent ([id number]) was prepped and advanced across the Mid LAD 75. The stent was deployed at 21 MEENAKSHI for 0:10 (min:sec) . 11:51:08 Inflation number: 2 The stent balloon was then re-inflated across the Mid LAD to 21 MEENAKSHI for 0:10 (min:sec) . 11:52:03 Stent catheter was removed intact over wire. 11:52:04 Wire removed. 11:52:04 Guide catheter removed. 11:52:11 EXOSEAL 6Fr (EX600) opened to sterile field. 11:52:20 Sheath removed intact; hemostasis achieved with Exoseal to the Right Femoral artery. 11:52:21 Procedure ended.(Physican Out) 11:52:56 Fluoroscopy time 02.70 minutes. 11:53:00 Flurop Dose total: 792 11:53:00 Fluoroscopy dose: 792 mGy 11:53:05 Contrast amount:Isovue 300 80ml. 11:53:59 Insertion/operative site no bleeding no hematoma. 11:54:01 Post-op/insertion site Right Femoral artery dressed using a 4 x 4 and Tegaderm. 11:54:03 Post right femoral artery:stable 11:54:05 Post Procedure Pulses reassessed and unchanged 11:54:07 Post procedure rhythm: unchanged. 11:54:10 Estimated blood loss: 5 ml 11:54:11 Post procedure instruction explained to patient.Patient verbalizes understanding. 11:54:12 Patient needs reinforcement of post procedure teaching. 11:54:29 Procedure type changed to Cath procedure, Diagnostic procedure, LHC, LHC w/Coronaries, FFR/IVUS, FFR Initial, Sedation Charges, Moderate Sedation up to 15 minutes, PCI procedure, Coronary Stent, Coronary Stent Initial 11:54:30 Procedure and supply charges have been captured, reviewed, submitted and are correct. 11:54:34 Procedure Complication : No complications 11:54:36 Vital chart was stopped 11:54:36 See physician's report for complete and final results. 11:54:40 Report given to [facility]. 11:54:51 Patient transfered to [facility] with Stretcher. 11:54:53 Procedure ended. 11:54:53 Full Disclosure recording stopped 11:54:59 ACC-PCI Only Patient was given prescriptions, or instructed by Ayo Starkey MD to start/continue the following medications upon discharge: Plavix 11:55:00 End room use (Document Last) Intervention Summary Intervention Notes Time ActionType Lesion and Equipment Used Action# Pressure Duration Attributes 11:50:50 Place stent Mid LAD ANNE-MARIE RX 2.5 x 1 21 00:10 26 stent ([id number]) 11:51:08 Reinflate Mid LAD ANNE-MARIE RX 2.5 x 2 21 00:10 stent 26 stent balloon ([id number]) Device Usage Item Name Manufacture Quantity Catalog Hospital Part Current Minimal Lot# / Number Charge Number Stock Stock Serial# Code ACIST Syringe Acist 1 30186 066113 646551 905337 20 (08800) Medical Systems Inc Bag Decanter Microtek 1 546232 25135 386700 5 () Medical Inc. Medline Cath Medline 1 [id number] 496600 21236 253938 5 Pack ([id number]) DIAGNOSTIC [place] 1 329258 783995 879939 473975 30 WIRE .035 260cm J wire (316478) ACIST Hand Acist 1 05150 454674 976606 214934 5 Control Medical (88342) Systems Inc ACIST Manifold Acist 1 17550 267889 915097 835360 5 (62900) Medical Systems Inc DIAGNOSTIC Cardinal 1 PC0414 024098 09138 978886 30 Multipack 5Fr Health catheter set ([id number]) Tegaderm 4 x 4 3M 1 1626W 490115 577786 138898 5 (1626W) SHEATH 5FR Terumo 1 [id number] 292485 515383 065035 5 [place] (CDO344) MULTIPACK Cardinal 1 063724 5 Pigtail 5 Fr Health catheter MULTIPACK JL Cardinal 1 337439 5 4.0 5Fr Health catheter MULTIPACK 3DRC Cardinal 1 791762 5 5Fr catheter Health SHEATH 6FR Terumo 1 LVZ521 278349 925695 460063 40 [place] (VXK419) GUIDE 6FR Cardinal 1 [id number] 296980 149520 374443 10 XBLAD 3.5 Health catheter (10398770) [place] 1 99311A 423986 688734098 450575 5 Verrata Plus pressure wire (82429R) INFLATOR Merit Merit 1 NP3264 529061 209418 572989 15 [place] (MX0459) ANNE-MARIE RX 2.5 x Medtronic 1 [id number] 900722 2816823 218349 5 [id number] 26 stent ([id number]) EXOSEAL 6Fr Cardinal 1 EX600 826486 334738 753405 10 (EX600) Health Signature Audit [place] Stage Time Signature Unsigned Intra-Procedure 12/09/2018 Guillermina Alejo 11:55:42 AM RT(R) Signatures Monitor : Guillermina Alejo RT Signature : Date : Time : [address] [address]
[~2018-12-08 10:37] MED LIST changes: +COREG6.25 MG PO
[2018-12-08] MEDS ORDERED: LASIX20 MG PO (10:50)
[2018-12-08 11:25] LABS: BASOPHILS 0.3 % (0-2); EOSINOPHILS 1.7 % (0-7); HEMATOCRIT 40.7 % (42.0-54.0); HEMOGLOBIN 14.1 g/dL (13.5-17.5); IMMATURE GRANULOCYTES 0.2 % (0-5); MCH 28.9 pg (26.0-34.0); MCHC 34.6 g/dL (31.0-37.0); MCV 83.4 fL (80.0-100.0); MEAN PLATELET VOLUME 9.5 fL (7.4-10.4); NEUTROPHILS 75.8 % (40-80); PLATELET COUNT 266 10x3/uL (130-400); RBC 4.88 10x6/uL (4.20-6.10); RDW 15.4 % (11.5-14.5); WBC 9.9 10x3/uL (4.8-10.8)
[2018-12-08 11:28] LABS: ALBUMIN 3.7 g/dL (3.4-5.0); ALKALINE PHOSPHATASE 96 U/L (46-116); ALT (SGPT) 15 U/L (10-68); BILIRUBIN - TOTAL 2.96 mg/dL (0.2-1.3); CALC OSMOLALITY 266 mosm/kg (275-300); CALCIUM 9.4 mg/dL (8.5-10.1); CARBON DIOXIDE 24.7 mmol/L (21.0-32.0); CHLORIDE - SERUM 99 mmol/L (98-107); CREATININE - SERUM 0.9 mg/dL (0.6-1.3); GLUCOSE 102 mg/dL (74-106); POTASSIUM - SERUM 4.1 mmol/L (3.5-5.1); PROTEIN - SERUM 7.2 g/dL (6.4-8.2); SODIUM 133 mmol/L (136-145); UREA NITROGEN 14 mg/dL (7-18); eGFR NON AFRICAN AMERICAN 86 mL/min (90-120)
[2018-12-08 11:43] LABS: CKMB 1.8 U/L (0.0-3.6); CREATINE KINASE 99 UL (21-232); PRO BNP 4014 pg/mL (0-450); TROPONIN-I < 0.017 ng/mL (0.000-0.060)
[2018-12-08 11:44] VITALS: BP 135/70
--- NOTE | 2018-12-08 12:44 | NUR ---
SITTING UPRIGHT IN BED. "I CAN'T LIE FLAT" VSS. PT TOOK O2 OFF "IT DOESN'T MAKE A DIFFERENCE" DR CARRILLO AT BS
[2018-12-08 12:45] VITALS: BP 132/87
--- NOTE | 2018-12-08 12:51 | MORECARE ---
CASE MANAGEMENT DISCHARGE SUMMARY PATIENT: JAZMIN SEGOVIA UNIT: [id number] ADM DATE: 12/08/18 AGE: 78 : 39 SEX: M ROOM/BED: D.E16 AUTHOR: ADEBAYO BAILEY PHYSICIAN: REFERRING PHYSICIAN: DANYELL CARRILLO MD DATE OF SERVICE: 12/08/18 Discharge Plan Patient Name: JAZMIN SEGOVIA Facility: [facility]:[place] : 1940 Planned Disposition: Home Anticipated Discharge Date: 12/10/18 Discharge Date: Expected LOS: 2 Initial Reviewer: [email or web address] Initial Review Date: 12/08/2018 Generated: 12/08/18 1:51 pm DCPIA - Discharge Planning Initial Assessment Updated by [email or web address]: Sadia Lacey on 12/08/18 12:51 pm * Is the patient Alert and Oriented? Yes * How many steps to enter\exit or inside your home? two * PCP Sona Hinds APRN - Works with a [facility] provider but she don't know which one. * Preadmission Environment Home with Family * ADLs Independent * Equipment None * List name and contact numbers for known caregivers / representatives who currently or will assist patient after discharge: Zenaida Casey - - [phone] * Verbal permission to speak to the caregivers and representatives has been obtained from the patient. Yes * Community resources currently utilized None * Additional services required to return to the preadmission environment? No * Can the patient safely return to the preadmission environment? Yes * Has this patient been hospitalized within the prior 30 days at any hospital? No Patient Name: JAZMIN SEGOVIA Page [id number] at 1251 All edits/amendments must be made on the electronic document DICTATION DATE: 12/08/18 1251 COMPREHENSIVE OPHTHALMOLOGIST: BERNARDINO 12/08/18 1251 RPT#: [id number] DC DATE: STATUS: ADM IN [facility] [address] [place] [address] END OF REPORT
--- NOTE | 2018-12-08 13:01 | MORECARE ---
CASE MANAGEMENT DISCHARGE SUMMARY PATIENT: JAZMIN SEGOVIA UNIT: [id number] ADM DATE: 12/08/18 AGE: 78 : 39 SEX: M ROOM/BED: D.E16 AUTHOR: LYNNDOC PHYSICIAN: REFERRING PHYSICIAN: DANYELL CARRILLO MD DATE OF SERVICE: 12/08/18 Discharge Plan Patient Name: JAZMIN SEGOVIA Facility: [facility]:[place] : 1940 Planned Disposition: Home Anticipated Discharge Date: 12/10/18 Discharge Date: Expected LOS: 2 Initial Reviewer: [email or web address] Initial Review Date: 12/08/2018 Generated: 12/08/18 2:01 pm DCP- Discharge Planning Updated by [email or web address]: Sadia Lacey on 12/08/18 11:[address] Patient Name: JAZMIN SEGOVIA Admission Status: ER Accout number: [id number] Admission Date: 12-08-2018 : 1940 Admission Diagnosis: Attending: JIMMY CARRILLO Current LOS: 1 Anticipated DC Date: 12-10-2018 Planned Disposition: Home Primary Insurance: MEDICARE A & B Discharge Planning Comments: CM met with patient to complete initial dc planning assessment. CM educated patient on the CM role and verbal consent given by patient to complete assessment. CM verified patient's address, phone number, and emergency contact phone numbers. Patient lives at home with his independently. At discharge patient plans to return home with his and feels this is a safe discharge. CM discussed availability of home health, rehab services, and medical equipment. Patient denied known discharge needs at this time. Patient reports his will transport him home at time of discharge. CM will continue to follow and will assist as needed with dc plans/needs. Crown Ironer: Sadia Lacey RN, [facility] DCPIA - Discharge Planning Initial Assessment Updated by [email or web address]: Sadia Lacey on 12/08/18 12:51 pm * Is the patient Alert and Oriented? Yes * How many steps to enter\exit or inside your home? two * PCP Sona Hinds APRN - Works with a [facility] provider but she don't know which one. * Preadmission Environment Home with Family * ADLs Independent * Equipment None * List name and contact numbers for known caregivers / representatives who currently or will assist patient after discharge: Zenaida Casey - - [phone] * Verbal permission to speak to the caregivers and representatives has been obtained from the patient. Yes * Community resources currently utilized None * Additional services required to return to the preadmission environment? No * Can the patient safely return to the preadmission environment? Yes * Has this patient been hospitalized within the prior 30 days at any hospital? No Last DP export: 12/08/18 11:51 a Patient Name: JAZMIN SEGOVIA Page [id number] at 1301 All edits/amendments must be made on the electronic document DICTATION DATE: 12/08/18 1300 ELECTRONIC PARTS DESIGNER: BERNARDINO 12/08/18 1300 RPT#: [id number] DC DATE: STATUS: ADM IN [facility] [address] [place] [address] END OF REPORT
[2018-12-08 13:34] VITALS: BP 138/82
[2018-12-08 14:30] VITALS: BP 125/84
--- NOTE | 2018-12-08 14:30 | NUR ---
AMB TO BR VOIDED 400ML CLEAR YELLOW URINE
--- NOTE | 2018-12-08 14:35 | NUR ---
US TECH AT BS FOR CARDIAC ECHO
--- NOTE | 2018-12-08 14:58 | NUR ---
REPORT CALLED TO LILLY ROMERO BY SBAR FORMAT. HEATHER REPORTS ROOM NOT CLEANED WILL CALL WHEN READY
--- NOTE | 2018-12-08 15:41 | NUR ---
ROOM READY TRANSPORTED TO #2131 VIA WITH TECH CONDITION STABLE.
--- NOTE | 2018-12-08 15:54 | NUR ---
PATIENT ARRIVED TO UNIT AND ADMITTED TO ROOM 2131 AT 1545. PATIENT ALERT/ORIENTED BUT HARD OF HEARING. PATIENT AMBULATORY. TRANSFERRED SELF FROM WHEELCHAIR TO BED WITHOUT DIFFICULTY. NO FAMILY AT THIS TIME THEY WENT TO THE CAR. RESP EVEN AND UNLABORED AT THIS TIME. NO DISTRESS.
[2018-12-08 17:50] VITALS: BP 98/64; BMI 25.2
--- NOTE | 2018-12-08 19:00 | NUR ---
PATIENT LAYING IN BED. NO COMPLAINTS AT THIS TIME. NO DISTRESS NOTED.
--- NOTE | 2018-12-08 19:00 | NUR ---
PATIENT RESTING IN BED. ONCOMING NURSE INTRODUCED TO PATIENT AT BEDSIDE. NO DISTRESS.
[2018-12-08 20:00] VITALS: BP 95/48
--- NOTE | 2018-12-09 02:26 | NUR ---
I have reviewed this patient and I concur with the Shift Assessment completed by the Licensed Practical Nurse today this shift.
--- NOTE | 2018-12-09 02:32 | NUR ---
PATIENT LAYING IN BED. EYES CLOSED, CHEST RISING AND FALLING. NO DISTRESS NOTED.
[2018-12-09 04:00] VITALS: BP 105/56
[2018-12-09 05:10] LABS: BASOPHILS 0.2 % (0-2); EOSINOPHILS 1.9 % (0-7); HEMATOCRIT 38.3 % (42.0-54.0); HEMOGLOBIN 13.2 g/dL (13.5-17.5); IMMATURE GRANULOCYTES 0.2 % (0-5); LYMPHOCYTES 11.6 % (15-50); MCH 28.4 pg (26.0-34.0); MCHC 34.5 g/dL (31.0-37.0); MCV 82.4 fL (80.0-100.0); MEAN PLATELET VOLUME 9.6 fL (7.4-10.4); MONOCYTES 12.3 % (2-11); NEUTROPHILS 73.8 % (40-80); PLATELET COUNT 258 10x3/uL (130-400); RBC 4.65 10x6/uL (4.20-6.10); RDW 15.5 % (11.5-14.5); WBC 11.3 10x3/uL (4.8-10.8)
[2018-12-09 05:44] LABS: ALBUMIN 3.4 g/dL (3.4-5.0); ANION GAP 11.2 mmol/L (8-16); BILIRUBIN - TOTAL 2.27 mg/dL (0.2-1.3); CARBON DIOXIDE 28.8 mmol/L (21.0-32.0); CREATININE - SERUM 1.1 mg/dL (0.6-1.3); PROTEIN - SERUM 6.7 g/dL (6.4-8.2)
--- NOTE | 2018-12-09 07:35 | NUR ---
REPORT RECEIVED. WILL CONTINUE WITH POC. PT CURRENTLY LYING SUPINE. CALL LIGHT W/I REACH. FAMILY AT BEDSIDE. L.FOR PIV IS SALINE LOCKED. RR EVEN AND UNLABORED ON RA. PT IS NPO FOR HEART CATH. NO S/S OF DISTRESS NOTED. PT DENIES ANY NEEDS. WILL CTM.
[2018-12-09 08:39] VITALS: BP 109/66
--- NOTE | 2018-12-09 11:19 | HP ---
PATIENT: JAZMIN SEGOVIA MEDICAL RECORD: [id number] ACCOUNT: [id number] LOCATION:[address] : 38 ADMISSION DATE: 12/08/18 PCP: EROS CASTELLANOS M.D. HISTORY AND PHYSICAL EXAMINATION ADMITTING DIAGNOSES: 1. Unstable angina, class III. 2. Shortness of breath, dyspnea on exertion. 3. Coronary artery disease. 4. Previous multivessel percutaneous transluminal coronary angioplasty stent. 5. Hypertension. 6. Hyperlipidemia. HISTORY OF PRESENT ILLNESS: Mr. Segovia has had 1 month of progressive chest pressure and shortness of breath. He initially attributed this to allergies; however, the shortness of breath worsened. He began having chest pressure. He is now having class III anginal symptomatology with daily episodes of rest pain, rest pressure as well as shortness of breath. The shortness of breath has progressed so much where he has to sit up to breathe. He is on Lasix at home, but is not a good diuresis as well. He is on beta bulmaro and WOO inhibitor. Heart rates in the 60s. Systolic blood pressure is 118. PHYSICAL EXAMINATION: GENERAL APPEARANCE: Well-nourished, well-developed, appears stated age. Level of distress, comfortable. PSYCHIATRIC: Mental status, alert, normal affect. Orientation, oriented to time, place and person. EYES: Lids and conjunctiva, noninjected. No discharge, no pallor. ENT: Lips, teeth, gums, normal dentition. Oropharynx, no cyanosis, no pallor. NECK: Carotid arteries, bilateral normal upstroke, no bruits, no thrills. JUGULAR VEINS: No jugular venous pressure or distention. CERVICAL LYMPH NODES: Nontender, nonenlarged. THYROID: Not enlarged. Nontender. No nodules. LUNGS: There are bibasilar crackles compatible with pulmonary edema. CHEST: Normal curvature. No thoracic deformity. No chest wall tenderness. Percussion, resonant. Auscultation, clear. No wheezes, no rales, no rhonchi. CARDIOVASCULAR: Precordial exam, nondisplaced. No heaves or pericardial thrills. Rate and rhythm, regular. Heart sounds, normal S1, normal S2. No S3, no gallop, no rub. Systolic murmur, not heard. Diastolic murmur, not heard. EXTREMITIES: No cyanosis, no edema. Peripheral pulses, full and equal in all extremities, except as noted. No bruits appreciated. ABDOMEN: Soft, nondistended. Normal aorta. No bruit. Nontender. No masses. Liver, nontender, no hepatomegaly. Spleen, nontender, no splenomegaly. MUSCULOSKELETAL: No joint tenderness. No joint swelling. No erythema. NEUROLOGICAL: Normal gait, normal strength, normal tone. SKIN: Warm and dry. OVERALL IMPRESSION: Increasing unstable angina in a progressive fashion with maximal medical therapy at this time due to his heart rate and blood pressure being optimal. We will try to add nitrates if his blood pressure tolerates it. We will diurese as his blood pressure tolerates as well. We will proceed with coronary angiography. EKG is not normal with nonspecific ST-T abnormalities, but no acute changes that require emergent cardiac catheterization. Further care depends upon the findings of the catheterization. HISTORY AND PHYSICAL [id number] JAZMIN SEGOVIA TRANSINT:[id number] Voice Confirmation ID: [id number] DOCUMENT ID: [id number] DANYELL CARRILLO MD at 1119 CC: [id number] DICTATION DATE: 12/08/18 1249 TURBINE BLADE ASSEMBLER: 12/08/18 1310 ADM IN [facility] [address] [place] [address]
--- NOTE | 2018-12-09 11:19 | EC ---
PATIENT:JAZMIN SEGOVIA DATE OF SERVICE: 12/08/18 SEX: M MEDICAL RECORD: [id number] DATE OF : 38 LOCATION:D.M2 D.213 AGE OF PATIENT: 78 ADMISSION DATE: 12/08/18 REFERRING PHYSICIAN: INTERPRETING PHYSICIAN: DANYELL STARKEY MD ECHOCARDIOGRAM REPORT ECHO CHARGES 4 ECHO COMPLETE Date: 12/08/18 CLINICAL DIAGNOSIS: SOB ECHOCARDIOGRAPHIC MEASUREMENTS (adult normal given) AC root (d.<3.7cm) 2.9 cm LV Septum d (<1.2 cm> 1.1 cm Valve Excursion 1.1 cm LV Septum (systole) 1.3 cm Left Atria (s.<4.0cm> 3.9 cm LVPW d(<1.2cm) 1.2 cm RV (d.<2.3cm) 3.0 cm LVPW (sytole) 1.3 cm LV diastole(<5.6CM) 5.6 cm MV E-F(>70mm/sec) cm LV systole 4.5 cm LVOT Diameter 1.6 cm MV exc.(>10mm) cm Est.ejection fraction (50-75%) % DOPPLER: LVIT cm/sec A 24 cm/sec E 76 cm/sec LA cm/sec RVSP 41.0 mmHg LVOT 44 cm/sec AOP1/2T m/s Asc. Ao 128 cm/sec RVOT 55 cm/sec RA cm/sec PA 72 cm/sec AV Gradient Peak 6.7 mmHg AV Mean 3.9 mmHg AV Area 0.8 cm MV Gradient Peak 5.4 mmHg MV Mean 2.1 mmHg MV Area cm COMMENTS: Elementary Special Education Teacher: Ronda GRIMMANGEL PERICO Medical Nurse: 1 Dr. Starkey TAPE# PACS Pericardial Effusion N DATE OF SERVICE: 12/08/2018 FINDINGS: 1. Left ventricular chamber size is within normal limits. Left ventricular systolic function is mildly depressed to lower limits of normal at 45% to 50%. 2. Left atrium, right atrium, and right ventricle sizes are within normal limit. 3. Valvular structures have normal structure and motion. 4. Doppler interrogation reveals moderate mitral regurgitation and mild tricuspid regurgitation. No other valvular insufficiency or stenosis. ECHOCARDIOGRAM REPORT [id number] JAZMIN SEGOVIA Pulmonary systolic pressure is estimated at 41 mmHg. 5. No evidence of pericardial effusion or left ventricular thrombus. TRANSINT:[id number] Voice Confirmation ID: [id number] DOCUMENT ID: [id number] DANYELL STARKEY MD at 1119 CC: [id number] DICTATION DATE: 12/08/18 162 BAG MAKING MACHINE TENDER: 12/08/18 1838 ADM IN [facility] [address] [place] [address]
--- NOTE | 2018-12-09 12:00 | NUR ---
PT RETURNED FROM SUPERVISOR LUMP ROOM. RIGHT FEM CATH SITE IS C/D/I WITH NO S/S OF HEMATOMA PRESENT. PERIPHERAL PULSES EVEN AND BILATERALLY. PT RESTING AT THE MOMENT. DOBUTAMINE INFUSING @5ML/HR VIA L.FOR PIV. NS INFUSING @100ML/HR VIA L.FOR PIV. WILL CTM.
[2018-12-09 12:24] VITALS: BMI 25.1
--- NOTE | 2018-12-09 13:33 | NUR ---
I have reviewed this patient and I concur with the Shift Assessment completed by the Licensed Practical Nurse today this shift.
--- NOTE | 2018-12-09 17:18 | OP ---
PATIENT NAME: JAZMIN SEGOVIA MEDICAL RECORD: [id number] :38 LOCATION:D.M2 D.2131 ADMISSION DATE:12/08/18 SURGEON: DANYELL CARRILLO MD DATE OF OPERATION: 12/09/2018 DATE OF SERVICE: 12/09/2018 PROCEDURES: 1. PTCA stent LAD. 2. IFR. 3. Left heart catheterization. 4. Selective coronary angiography. 5. Left ventriculogram. INDICATION: Class III anginal symptomatology, cardiomyopathy, congestive heart failure, coronary artery disease, previous multivessel PTCA stent. PROCEDURE IN DETAIL: After informed consent was obtained and after a detailed description of risks, benefits as well as alternative therapies, the patient elected to proceed with angiogram and angioplasty. The right femoral area was prepped and draped in normal sterile fashion. Right femoral artery was cannulated via modified Seldinger technique with placement of 6-[place] Island[place] sheath. All catheters exchanged through this sheath. FINDINGS: Left ventriculogram was performed in standard 30-degree PHILIP view, reveals dilated cardiomyopathy, ejection fraction of 15% to 20%. SELECTIVE CORONARY ANGIOGRAPHY: 1. Left main is with no significant angiographic disease. 2. Left anterior descending has previously placed stents. There is an area where the contrast definitely hangs up with every injection. After this, there is a stenosis of 70% to 75%. IFR is abnormal at 0.85. 3. Left circumflex is large, dominant with no significant disease. 4. Right coronary has previously placed stent that is widely patent, elsewise RCA has no significant disease. PTCA STENT OF THE LAD: The stent used was a 2.5 x 26 mm Jaxon taken to 26 atmospheres. Result was 0% residual stenosis with scientology of ANA 3 flow and no more hangup with the contrast at that point. OVERALL IMPRESSION: Successful percutaneous transluminal coronary angioplasty stent of the left anterior descending going from 70% to 75% initial stenosis with abnormal IFR to 0% residual. TRANSINT:[id number] Voice Confirmation ID: [id number] DOCUMENT ID: [id number] DANYELL CARRILLO MD at 1718 CC: [id number] DICTATION DATE: 12/09/18 1155 ELECTRICAL EXPERIMENTAL MECHANIC: 12/09/18 1214 [place] [address]
[2018-12-09 18:36] VITALS: BP 106/56
--- NOTE | 2018-12-09 19:00 | NUR ---
PATIENT LAYING IN BED. EYES CLOSED, CHEST RISING AND FALLING. NO DISTRESS NOTED.
[2018-12-09 20:00] VITALS: BP 117/63
--- NOTE | 2018-12-10 01:15 | NUR ---
PATIENT LAYING IN BED. EYES CLOSED, CHEST RISING AND FALLING. NO DISTRESS NOTED.
[2018-12-10 04:00] VITALS: BP 122/58
--- NOTE | 2018-12-10 04:03 | NUR ---
I have reviewed this patient and I concur with the Shift Assessment completed by the Licensed Practical Nurse today this shift.
--- NOTE | 2018-12-10 07:10 | NUR ---
RECEIVED REPORT FROM NIGHTSHIFT AND CARE ASSUMMED. HE C/O PAIN IN LEFT SIDE OF CHEST THAT DOES NOT RADIATE. IT IS DULL IN NATURE. VITAL SIGNS ARE STABLE. CL IN REACH RESP EVEN WITHOUT LABOR. O2 IS ON AT 2L/M PER N/C.
--- NOTE | 2018-12-10 07:25 | NUR ---
DR CASTELLANOS WAS HERE MAKING ROUNDS AND HE TOLD HIM I FEEL FINE. I TOLD HIM WHAT HE HAD TOLD ME AND THAT I HAD ATTEMPTED A EKG BUT HIS PACEMAKER INTERFERRED WITH THE RESULTS. DR CASTELLANOS TOLD ME TO GET HIM UP AND AMBULATE HIM AND SEE HOW HE DONE WITH IT.
--- NOTE | 2018-12-10 07:45 | NUR ---
NO FURTHER C/P AT THIS TIME. CONTINUE TO MONITOR.
[2018-12-10 08:10] VITALS: BP 124/72
--- NOTE | 2018-12-10 10:06 | NUR ---
AMBULATED AROUND NURSES STATION. TOLERATED WELL. DENIES C/P BUT DOES STATE HE WAS TIRED. SITTING UP IN CHAIR IN ROOM WITH AT BEDSIDE.
--- NOTE | 2018-12-10 11:06 | NUR ---
STUDENT NURSE REPORTS LOW B/P OF 89/60. LAURA B/P WAS TAKEN BY ME WITH RESULTS OF 110/60. NO C/O VOICED. HE GOT UP TO AMBULATE AGAIN WITH THE ONLY C/O OF SLIGHT DIZZINESS BUT HE JUMPED UP TO QUICK FROM SITTING TO STANDING POSITION. EDUCATION WAS DONE TO SIT ON SIDE OF BED AND SHAKE HIS ARMS PRIOR TO STANDING UP.
[2018-12-10 11:37] VITALS: BP 116/77
--- NOTE | 2018-12-10 13:05 | NUR ---
HE HAS AMBULATED WITH HIS SEVERAL TIMES AND HAS TOLERATED IT WELL. RIGHT GROIN SITE HAS BEEN CHECKED SEVERAL TIMES WITH NO BLEEDING, HEMATOMA, OR BRUISING NOTED. HIS RIGHT THIGH REMAINS SOFT. DENIES ANY CURRENT NEEDS. O2 HAS BEEN OFF FOR SEVERAL HOURS AND O2 SAT IS 96% ON R/A.
[2018-12-10] MEDS ORDERED: PLAVIX75 MG PO (13:40)
--- NOTE | 2018-12-10 15:25 | NUR ---
DISCHARGE PAPERS DISCUSSED AT BEDSIDE WITH HIM AND HIS . PATIENT TEACHING DONE AND AWARE OF FOLLOW UP APPOINTMENT. PATIENT EDUCATION EXPLAINED AND THEY VERBALIZED UNDERSTANDING. HE LEFT VIA W/C TRANSPORT DOWN TO PRIVATE AUTO. HE IS ALERT AND DENIES ANY C/P OR ISSUES. RIGHT GROIN SITE IS CLEAR WITH NO SWELLING HEMATOMA OR BLEEDING NOTED. LEG IS SOFT AROUND SITE AND DOWN THIGH.
--- NOTE | 2018-12-10 16:35 | MORECARE ---
CASE MANAGEMENT DISCHARGE SUMMARY PATIENT: JAZMIN SEGOVIA UNIT: [id number] ADM DATE: 12/08/18 AGE: 78 : [birth year] SEX: M ROOM/BED: D.2131 AUTHOR: ADEBAYO BAILEY PHYSICIAN: REFERRING PHYSICIAN: DANYELL CARRILLO MD DATE OF SERVICE: 12/10/18 Discharge Plan Patient Name: JAZMIN SEGOVIA Facility: [facility]:[place] : 1940 Planned Disposition: Home Anticipated Discharge Date: 12/10/18 Discharge Date: 12/10/2018 Expected LOS: 2 Initial Reviewer: [email or web address] Initial Review Date: 12/08/2018 Generated: 12/10/18 5:35 pm Comments DCP- Discharge Planning Updated by [email or web address]: Nigel Frederick on 12/10/18 3:[address] Patient Name: JAZMIN SEGOVIA Encounter No: [id number] : 1940 Primary Insurance: MEDICARE A & B Anticipated DC Date: 12-10-2018 Planned Disposition: Home DCP follow-up note: CM MET WITH PT IN ROOM TO DISCUSS DISCHARGE NEEDS AND PLANNING. CM DISCUSSED AVAILABILITY OF HOME HEALTH, REHAB SERVICES AND MEDICAL EQUIPMENT. PT DENIES DISCHARGE NEEDS. SON TO TRANSPORT HOME AT DISCHARGE. IMPORTANT MESSAGE FROM MEDICARE PROVIDED AND EXPLAINED. Nigel Frederick. CASE MANAGEMENT DCP- Discharge Planning Updated by [email or web address]: Sadia Lacey on 12/08/18 11:[address] Patient Name: JAZMIN SEGOVIA Admission Status: ER Accout number: [id number] Admission Date: 12-08-2018 : 1940 Admission Diagnosis: Attending: JIMMY CARRILLO Current LOS: 1 Anticipated DC Date: 12-10-2018 Planned Disposition: Home Primary Insurance: MEDICARE A & B Discharge Planning Comments: CM met with patient to complete initial dc planning assessment. CM educated patient on the CM role and verbal consent given by patient to complete assessment. CM verified patient's address, phone number, and emergency contact phone numbers. Patient lives at home with his independently. At discharge patient plans to return home with his and feels this is a safe discharge. CM discussed availability of home health, rehab services, and medical equipment. Patient denied known discharge needs at this time. Patient reports his will transport him home at time of discharge. CM will continue to follow and will assist as needed with dc plans/needs. Flying I Instructor: Sadia Lacey RN, [facility] DCPIA - Discharge Planning Initial Assessment Updated by [email or web address]: Sadia Lacey on 12/08/18 12:51 pm * Is the patient Alert and Oriented? Yes * How many steps to enter\exit or inside your home? two * PCP Sona Hinds APRN - Works with a [facility] provider but she don't know which one. * Preadmission Environment Home with Family * ADLs Independent * Equipment None * List name and contact numbers for known caregivers / representatives who currently or will assist patient after discharge: Zenaida Casey - - [phone] * Verbal permission to speak to the caregivers and representatives has been obtained from the patient. Yes * Community resources currently utilized None * Additional services required to return to the preadmission environment? No * Can the patient safely return to the preadmission environment? Yes * Has this patient been hospitalized within the prior 30 days at any hospital? No Coverage Notice Reviewer: [email or web address] Jorge Frederick Notice Issued Date-Time: 12/10/2018 13:35 Notice Type: IM Discharge Notice Notice Delivered To: Patient Relationship to Patient: Reducer Name: Delivery Method: HAND - Hand Delivered Neda Days: Prior Verbal Notification: Recipient Understood Notice: Yes Recipient Signature: Yes Med Rec Note Co-signed by Attending: Coverage Notice Comment: Last DP export: 12/08/18 12:01 p Patient Name: JAZMIN SEGOVIA Page [id number] at 1635 All edits/amendments must be made on the electronic document DICTATION DATE: 12/10/18 1635 INSTRUMENTATION SPECIALIST: BERNARDINO 12/10/18 1635 RPT#: [id number] DC DATE:12/10/18 STATUS: DIS IN [facility] [address] [facility] [place] [address] END OF REPORT
--- NOTE | 2019-03-16 13:38 | DS ---
PATIENT:JAZMNI SEGOVIA :[birth year] MEDICAL RECORD: [id number] DISCHARGE SUMMARY ADMISSION DATE: 12/08/18 DISCHARGE DATE: 12/10/18 DATE OF DISCHARGE: 12/10/2018 DIAGNOSES: 1. Unstable angina. 2. Coronary artery disease. 3. Percutaneous transluminal coronary angioplasty stent left anterior descending this admission. HOSPITAL COURSE: Mr. Segovia presents with unstable anginal symptomatology, found to have significant disease of the LAD, underwent successful PTCA stent of the LAD, was discharged home with the addition of aspirin and Plavix to his medical regimen. He will follow up with [facility] in 1 month. TRANSINT:[id number] Voice Confirmation ID: [id number] DOCUMENT ID: [id number] DANYELL CARRILLO MD at 1338 CC: [id number] DICTATION DATE: 03/09/191913 ORGANISATION AND METHODS ANALYST: 03/10/19 0203 DIS IN 12/10/18 [facility] [address] [place] [address]
== END 2018-12-10 15:25 | disposition home or self-care (01) | DRG 247 ==
LOC: D.ER 10:37 → D.M2 12:13 → D.EDHOLD 12:13 → D.M2 14:42
PROVIDERS: Family Medicine; ADMIT Internal Medicine Interventional Cardiology; ATTEND Internal Medicine Interventional Cardiology
PROC: 4A023N7 Measurement of Cardiac Sampling and Pressure, Left Heart, Percutaneous Approach (ICD-10-PCS; 2018-12-09)
PROC: B2111ZZ Fluoroscopy of Multiple Coronary Arteries using Low Osmolar Contrast (ICD-10-PCS; 2018-12-09)
PROC: B2151ZZ Fluoroscopy of Left Heart using Low Osmolar Contrast (ICD-10-PCS; 2018-12-09)
PROC: 027034Z Dilation of Coronary Artery, One Artery with Drug-eluting Intraluminal Device, Percutaneous Approach (ICD-10-PCS; principal; 2018-12-09 11:00)
PROC: 4A033BC Measurement of Arterial Pressure, Coronary, Percutaneous Approach (ICD-10-PCS; 2018-12-09 11:00)
DX: I25.110 Atherosclerotic heart disease of native coronary artery with unstable angina pectoris (principal); I50.22 Chronic systolic (congestive) heart failure; E78.5 Hyperlipidemia, unspecified; I42.9 Cardiomyopathy, unspecified; I11.0 Hypertensive heart disease with heart failure

== ENCOUNTER → 2019-01-20 12:52 | Outpatient (CLI) | payer MEDICARE, OTHER ==
[~2019-01-20 12:52] MED LIST changes: +LASIX20 MG PO
== END | disposition home or self-care (01) ==
LOC: D.HCCARDIO 01-19 11:00
PROVIDERS: ATTEND Internal Medicine Cardiovascular Disease
DX: I42.9 Cardiomyopathy, unspecified (principal)

== ENCOUNTER 2019-04-07 18:32 | Observation (INO) | payer MEDICARE, OTHER ==
[~2019-04-07] VITALS: Ht 175.3 cm; Wt 77.1 kg
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
[2019-04-07 18:58] VITALS: BP 112/58
[2019-04-07 19:09] LABS: BASOPHILS 0.5 % (0-2); EOSINOPHILS 3.1 % (0-7); HEMATOCRIT 45.3 % (42.0-54.0); IMMATURE GRANULOCYTES 0.3 % (0-5); LYMPHOCYTES 22.9 % (15-50); MCH 28.8 pg (26.0-34.0); MCHC 33.1 g/dL (31.0-37.0); MCV 87.1 fL (80.0-100.0); MEAN PLATELET VOLUME 9.3 fL (7.4-10.4); MONOCYTES 10.9 % (2-11); NEUTROPHILS 62.3 % (40-80); PLATELET COUNT 294 10x3/uL (130-400); RDW 15.7 % (11.5-14.5); WBC 7.7 10x3/uL (4.8-10.8)
[2019-04-07 19:17] LABS: APTT 28.3 SECONDS (22.8-39.4); INR 1.08 (0.85-1.17); PROTIME 13.5 SECONDS (11.6-15.0)
[2019-04-07 19:31] LABS: ALBUMIN 4.1 g/dL (3.4-5.0); ALKALINE PHOSPHATASE 78 U/L (46-116); ALT (SGPT) 18 U/L (10-68); BILIRUBIN - TOTAL 1.35 mg/dL (0.2-1.3); CALC OSMOLALITY 275 mosm/kg (275-300); CALCIUM 9.1 mg/dL (8.5-10.1); CARBON DIOXIDE 28.8 mmol/L (21.0-32.0); CHLORIDE - SERUM 102 mmol/L (98-107); CREATININE - SERUM 1.1 mg/dL (0.6-1.3); GLUCOSE 88 mg/dL (74-106); PROTEIN - SERUM 7.9 g/dL (6.4-8.2); SODIUM 139 mmol/L (136-145); UREA NITROGEN 10 mg/dL (7-18); eGFR NON AFRICAN AMERICAN 68 mL/min (90-120)
[2019-04-07 19:50] VITALS: BP 120/66
[2019-04-07 19:58] LABS: CREATINE KINASE 91 UL (21-232); MAGNESIUM - SERUM 2.4 mg/dL (1.8-2.4); PRO BNP 1538 pg/mL (0-450)
[2019-04-07 20:10] VITALS: BP 112/73
[2019-04-07 20:11] LABS: TROPONIN-I < 0.017 ng/mL (0.000-0.060)
[2019-04-07 21:19] VITALS: BP 124/65
[2019-04-07 21:25] VITALS: BP 114/71
--- NOTE | 2019-04-07 21:25 | NUR ---
UPON ENTERING PT'S ROOM, PT STATES "I WANT A NITRO NOW. MY BACK AND CHEST ARE HURTING." EDP NOTIFIED. 09/30 PAIN BEFORE FIRST SL NITRO. . SEE EMAR. PAIN RELIEVED 6 MINUTES LATER, PT STATES "MY PAIN IS GONE, I THINK IT WAS ME SITTING ON SIDE OF BED."
[2019-04-07 21:41] VITALS: BP 117/70; BMI 25.1
--- NOTE | 2019-04-07 23:00 | NUR ---
NO TELE AVAILABLE AT THIS TIME. PT IS ON WAITING LIST.
[2019-04-08] VITALS: BP 100/49
[2019-04-08 01:55] LABS: CKMB 1.3 U/L (0.0-3.6); CREATINE KINASE 68 UL (21-232)
[2019-04-08 02:06] LABS: TROPONIN-I < 0.017 ng/mL (0.000-0.060)
[2019-04-08 04:00] VITALS: BP 108/60
--- NOTE | 2019-04-08 07:16 | NUR ---
REPORT RECEIVED. WILL CONTINUE WITH POC. PT CURRENTLY LYING ON RIGHT SIDE ASLEEP. CALL LIGHT W/I REACH. RR EVEN AND UNLABORED ON RA. L.AC PIV IS SALINE LOCKED. NO S/S OF DISTRESS NOTED. PT DENIES ANY NEEDS. WILL CTM.
[2019-04-08 08:02] LABS: BASOPHILS 0.7 % (0-2); HEMATOCRIT 42.5 % (42.0-54.0); HEMOGLOBIN 14.1 g/dL (13.5-17.5); IMMATURE GRANULOCYTES 0.1 % (0-5); MCH 28.8 pg (26.0-34.0); MCHC 33.2 g/dL (31.0-37.0); MCV 86.9 fL (80.0-100.0); MEAN PLATELET VOLUME 9.6 fL (7.4-10.4); MONOCYTES 9.6 % (2-11); NEUTROPHILS 61.6 % (40-80); PLATELET COUNT 275 10x3/uL (130-400); RBC 4.89 10x6/uL (4.20-6.10); RDW 15.6 % (11.5-14.5); WBC 7.6 10x3/uL (4.8-10.8)
[2019-04-08 08:26] LABS: ALBUMIN 3.5 g/dL (3.4-5.0); ALKALINE PHOSPHATASE 72 U/L (46-116); ALT (SGPT) 16 U/L (10-68); BILIRUBIN - TOTAL 1.98 mg/dL (0.2-1.3); CALC OSMOLALITY 271 mosm/kg (275-300); CALCIUM 8.9 mg/dL (8.5-10.1); CARBON DIOXIDE 26.9 mmol/L (21.0-32.0); CHLORIDE - SERUM 103 mmol/L (98-107); CKMB 1.2 U/L (0.0-3.6); CREATINE KINASE 64 UL (21-232); CREATININE - SERUM 0.9 mg/dL (0.6-1.3); GLUCOSE 88 mg/dL (74-106); MAGNESIUM - SERUM 2.2 mg/dL (1.8-2.4); PHOSPHOROUS 3.7 mg/dL (2.5-4.9); POTASSIUM - SERUM 4.4 mmol/L (3.5-5.1); PROTEIN - SERUM 6.5 g/dL (6.4-8.2); SODIUM 137 mmol/L (136-145); UREA NITROGEN 9 mg/dL (7-18); eGFR NON AFRICAN AMERICAN 86 mL/min (90-120)
[2019-04-08 08:59] VITALS: Ht 175.3 cm; Wt 77.1 kg
[2019-04-08 09:53] LABS: CHOL - HDL RATIO 4.7 ratio (2.3-4.9); LDL-HDL RATIO 3.2 ratio (1.5-3.5)
--- NOTE | 2019-04-08 10:09 | NUR ---
PREOP MEDICATIONS ADMINISTERED PER BODY SHOP FLOORPERSON REQUEST. WILL CTM. NS INFUSING @KVO VIA L.AC PIV.
[2019-04-08 10:44] VITALS: BP 117/69
[2019-04-08 13:42] VITALS: BP 94/52
--- NOTE | 2019-04-08 16:20 | NUR ---
I have reviewed this patient and I concur with the Shift Assessment completed by the Licensed Practical Nurse today this shift.
--- NOTE | 2019-04-08 17:20 | NUR ---
IV DC'D. APPLIED 2X2 GAUZE AND TAPE. TOLERATED WELL. REVIEWED DISCHARGE INSTRUCTIONS WITH PATIENT AND SPOUSE. VERBAL AND WRITTEN ACKNOWLEDGEMENT OBTAINED
--- NOTE | 2019-04-08 17:25 | NUR ---
PT DISCHARGED HOME VIA WHEELCHAIR WITH FAMILY. PIV REMOVED WITH CATHETER TIP FULLY INTACT. TELEMETRY REMOVED AND RETURNED. PT SIGNED PROPER DISCHARGE INSTRUCTIONS AND REMOVED ALL VALUABLES FROM THE ROOM.
--- NOTE | 2019-04-09 07:41 | MORECARE ---
CASE MANAGEMENT DISCHARGE SUMMARY PATIENT: JAZMIN SEGOVIA UNIT: [id number] ADM DATE: 04/07/19 AGE: 78 : 39 SEX: M ROOM/BED: D.2136 AUTHOR: ADEBAYO BAILEY PHYSICIAN: REFERRING PHYSICIAN: MARKO SHIRLEY MD DATE OF SERVICE: 04/09/19 Discharge Plan Patient Name: JAZMIN SEGOVIA [facility] [facility] 1940 Planned Disposition: Home Anticipated Discharge Date: 04/08/19 Discharge Date: 04/08/2019 Expected LOS: 1 Initial Reviewer: [email or web address] Initial Review Date: 04/09/2019 Generated: 04/09/19 8:41 am Coverage Notice Reviewer: [email or web address] Jorge Lacey Notice Issued Date-Time: 04/07/2019 19:35 Notice Type: Medicare Outpatient Observation Notice Notice Delivered To: Patient Relationship to Patient: Fisher Mussel Name: Delivery Method: HAND - Hand Delivered Neda Days: Prior Verbal Notification: Recipient Understood Notice: Recipient Signature: Med Rec Note Co-signed by Attending: Coverage Notice Comment: CRESPO delivered, explained, signed by the patient, and placed in his chart. Signed form also left with patient. Sadia Lacey RN , [facility] Patient Name: JAZMIN SEGOVIA Page [phone] at 0741 All edits/amendments must be made on the electronic document DICTATION DATE: 04/09/19740 [employer]: [place] 04/09/19740 RPT#: [id number] DC DATE:04/08/19 STATUS: DIS IN [facility] [address] [place] [address] END OF REPORT
== END 2019-04-08 17:26 | disposition home or self-care (01) ==
LOC: D.ER 18:32 → D.M2 19:09 → OBSVTIME 19:09 → D.M2 04-08 17:26
PROVIDERS: Family Medicine; Internal Medicine Interventional Cardiology; ADMIT Family Medicine; ATTEND Family Medicine
DX: I25.10 Atherosclerotic heart disease of native coronary artery without angina pectoris (principal); I50.20 Unspecified systolic (congestive) heart failure; Z95.810 Presence of automatic (implantable) cardiac defibrillator; R06.02 Shortness of breath; I25.5 Ischemic cardiomyopathy; I24.9 Acute ischemic heart disease, unspecified

== ENCOUNTER 2019-06-17 13:05 | Inpatient (IN) | payer MEDICARE, OTHER ==
[~2019-06-17] VITALS: Ht 175.3 cm; Wt 75.5 kg
--- NOTE | ~2019-06-17 | EC ---
PATIENT:JAZMIN SEGOVIA DATE OF SERVICE: 06/17/19 SEX: M MEDICAL RECORD: [id number] DATE OF : 38 LOCATION:D.M2 D.211 AGE OF PATIENT: 78 ADMISSION DATE: 06/17/19 REFERRING PHYSICIAN: INTERPRETING PHYSICIAN: DANYELL STARKEY MD ECHOCARDIOGRAM REPORT ECHO CHARGES 5 ECHO LIMITED Date: 06/19/19 CLINICAL DIAGNOSIS: CHF HX CAD/PACEMAKER ECHOCARDIOGRAPHIC MEASUREMENTS (adult normal given) AC root (d.<3.7cm) cm LV Septum d (<1.2 cm> cm Valve Excursion cm LV Septum (systole) cm Left Atria (s.<4.0cm> 4.2 cm LVPW d(<1.2cm) cm RV (d.<2.3cm) 3.3 cm LVPW (sytole) cm LV diastole(<5.6CM) 6.6 cm MV E-F(>70mm/sec) cm LV systole 5.8 cm LVOT Diameter 1.7 cm MV exc.(>10mm) cm Est.ejection fraction (50-75%) % DOPPLER: LVIT cm/sec A 36.0 cm/sec E 93.0 cm/sec LA cm/sec RVSP 46 mmHg LVOT 89 cm/sec AOP1/2T m/s Asc. Ao 139 cm/sec RVOT cm/sec RA cm/sec PA cm/sec AV Gradient Peak 7.70 mmHg AV Mean 4.13 mmHg AV Area 1.5 cm MV Gradient Peak 4.82 mmHg MV Mean 1.53 mmHg MV Area cm COMMENTS: Educational/Development Assistant: Placido HER Field Crop Farmworker: 1 Dr. Starkey TAPE# PACS Pericardial Effusion N DATE OF SERVICE: ECHOCARDIOGRAM FINDINGS: 1. Left ventricular chamber size is dilated. Left ventricular systolic function is moderately reduced, overall ejection fraction estimated at 30%. 2. Left atrium is enlarged at 4.2 cm. Right atrium and right ventricle chamber sizes are within normal limits. 3. Valvular structures have normal structure and motion. ECHOCARDIOGRAM REPORT [id number] JAZMIN SEGOVIA 4. Doppler interrogation reveals mild mitral regurgitation, mild tricuspid regurgitation, no other valvular insufficiency or stenosis. Pulmonary systolic pressure is mildly elevated, estimated at 46 mmHg. 5. No evidence of pericardial effusion or left ventricular thrombus. TRANSINT:[id number] Voice Confirmation ID: [id number] DOCUMENT ID: [id number] DANYELL STARKEY MD CC: [id number] DICTATION DATE: 06/20/19 1253 BLENDER: 06/20/19 1343 ADM IN [place] [id number] [place] [id number]
[2019-06-17 14:01] LABS: BASOPHILS 0.1 % (0-2); EOSINOPHILS 0.3 % (0-7); HEMATOCRIT 45.1 % (42.0-54.0); HEMOGLOBIN 15.1 g/dL (13.5-17.5); IMMATURE GRANULOCYTES 0.2 % (0-5); LYMPHOCYTES 6.2 % (15-50); MCH 29.3 pg (26.0-34.0); MCHC 33.5 g/dL (31.0-37.0); MCV 87.6 fL (80.0-100.0); MEAN PLATELET VOLUME 9.2 fL (7.4-10.4); MONOCYTES 7.7 % (2-11); NEUTROPHILS 85.5 % (40-80); PLATELET COUNT 274 10x3/uL (130-400); RBC 5.15 10x6/uL (4.20-6.10); RDW 14.9 % (11.5-14.5); WBC 14.8 10x3/uL (4.8-10.8)
[2019-06-17 14:13] LABS: CALC OSMOLALITY 270 mosm/kg (275-300); CALCIUM 8.8 mg/dL (8.5-10.1); CARBON DIOXIDE 23.4 mmol/L (21.0-32.0); CHLORIDE - SERUM 103 mmol/L (98-107); CREATININE - SERUM 1.1 mg/dL (0.6-1.3); GLUCOSE 121 mg/dL (74-106); POTASSIUM - SERUM 4.4 mmol/L (3.5-5.1); SODIUM 135 mmol/L (136-145); UREA NITROGEN 13 mg/dL (7-18); eGFR NON AFRICAN AMERICAN 68 mL/min (90-120)
[2019-06-17 14:29] LABS: APTT 27.9 SECONDS (22.8-39.4); INR 1.08 (0.85-1.17); PROTIME 13.5 SECONDS (11.6-15.0)
[2019-06-17 14:30] LABS: D-DIMER-QUANTITATIVE 0.95 ug/mLFEU (0.20-0.54)
[2019-06-17 14:31] LABS: ALBUMIN 3.7 g/dL (3.4-5.0); ALKALINE PHOSPHATASE 76 U/L (46-116); ALT (SGPT) 23 U/L (10-68); BILIRUBIN - TOTAL 1.17 mg/dL (0.2-1.3); CKMB 1.1 U/L (0.0-3.6); CREATINE KINASE 78 UL (21-232); MAGNESIUM - SERUM 2.2 mg/dL (1.8-2.4); PROTEIN - SERUM 7.1 g/dL (6.4-8.2); TROPONIN-I < 0.017 ng/mL (0.000-0.060)
[2019-06-17 15:22] VITALS: BP 114/60
--- NOTE | 2019-06-17 17:14 | MORECARE ---
CASE MANAGEMENT DISCHARGE SUMMARY PATIENT: JAZMIN CANADA UNIT: [id number] ADM DATE: 06/17/19 AGE: 78 : 39 SEX: M ROOM/BED: D.[facility]5 AUTHOR: ADEBAYO BAILEY PHYSICIAN: REFERRING PHYSICIAN: DAKOTAH SCHNEIDER MD DATE OF SERVICE: 06/17/19 Discharge Plan Patient Name: JAZMIN CANADA Facility: [facility]:[place] : 1940 Planned Disposition: Home Anticipated Discharge Date: 06/19/19 Discharge Date: Expected LOS: 2 Initial Reviewer: [email or web address] Initial Review Date: 06/17/2019 Generated: 06/17/19 6:13 pm DCPIA - Discharge Planning Initial Assessment Updated by [email or web address]: Sadia Lacey on 06/17/19 5:13 pm * Is the patient Alert and Oriented? Yes * PCP Dr. John - [facility] * Pharmacy [facility] * Preadmission Environment Home with Family * ADLs Independent * Equipment None * List name and contact numbers for known caregivers / representatives who currently or will assist patient after discharge: Zenaida [place] - spouse - [phone] * Verbal permission to speak to the caregivers and representatives has been obtained from the patient. Yes * Community resources currently utilized None * Additional services required to return to the preadmission environment? No * Can the patient safely return to the preadmission environment? Yes * Has this patient been hospitalized within the prior 30 days at any hospital? No Patient Name: JAZMIN CANADA Page [phone] at 1714 All edits/amendments must be made on the electronic document DICTATION DATE: 06/17/191712 [employer] SUPERVISOR: [place] 06/17/191712 RPT#: [id number] DC DATE: STATUS: ADM IN [facility] [address] [place] [address] END OF REPORT
--- NOTE | 2019-06-17 17:22 | MORECARE ---
CASE MANAGEMENT DISCHARGE SUMMARY PATIENT: JAZMIN CANADA UNIT: [id number] ADM DATE: 06/17/19 AGE: 78 : 39 SEX: M ROOM/BED: D.9445 AUTHOR: LYNNDOC PHYSICIAN: REFERRING PHYSICIAN: DAKOTAH SCHNEIDER MD DATE OF SERVICE: 06/17/19 Discharge Plan Patient Name: JAZMIN CANADA Facility: [facility]:[place] : 1940 Planned Disposition: Home Anticipated Discharge Date: 06/19/19 Discharge Date: Expected LOS: 2 Initial Reviewer: [email or web address] Initial Review Date: 06/17/2019 Generated: 06/17/19 6:22 pm DCP- Discharge Planning Updated by [email or web address]: Sadia Lacey on 06/17/19 4:[address] DC PLAN: Return home independently with his . ANTICIPATED DC NEEDS: Denied known dc needs at time of assessment. CM met with patient to complete initial dc planning assessment. CM educated patient on the CM role and verbal consent given by patient to complete assessment. CM verified patient's address, phone number, and emergency contact phone numbers. Patient lives at home with his and reports he is independent in his care at home. At discharge patient plans to return home with his and feels this is a safe discharge. CM discussed availability of home health, rehab services, and medical equipment. Patient denied known discharge needs at this time. Transportation provider at discharge will be his . CM will continue to follow and will assist as needed with dc plans/needs. Sadia Lacey RN, [facility] DCPIA - Discharge Planning Initial Assessment Updated by [email or web address]: Sadia Lacey on 06/17/19 5:13 pm * Is the patient Alert and Oriented? Yes * PCP Dr. John - [facility] * Pharmacy [facility] * Preadmission Environment Home with Family * ADLs Independent * Equipment None * List name and contact numbers for known caregivers / representatives who currently or will assist patient after discharge: Zenaida [place] - spouse - [phone] * Verbal permission to speak to the caregivers and representatives has been obtained from the patient. Yes * Community resources currently utilized None * Additional services required to return to the preadmission environment? No * Can the patient safely return to the preadmission environment? Yes * Has this patient been hospitalized within the prior 30 days at any hospital? No Last DP export: 06/17/19 4:14 Patient Name: JAZMIN CANADA Page [phone] at 1722 All edits/amendments must be made on the electronic document DICTATION DATE: 06/17/191721 COMMUNITY OUTREACH WORKER: [place] 06/17/191721 RPT#: [id number] DC DATE: STATUS: ADM IN [facility] [address] [place] [address] END OF REPORT
--- NOTE | 2019-06-17 18:28 | NUR ---
PT TO ROOM FROM ER. OXYGEN PER NC IN USE. PT COMPLAIN OF PAIN TO RIGHT CHEST 11/30. TYLENOL GIVEN. MICHELA PAYNE IN ROOM NOW AND INFORMED OF PAIN LEVEL. TELEMETRY IN USE, CONT PULSE OX BEING PLACED. INSTRUCTED TO NOTIFY FOR SHORTNESS OF BREATH.
--- NOTE | 2019-06-17 19:56 | NUR ---
RECEIVED BEDSIDE REPORT. PATIENT ALERT AND ORIENTED, RESTING COMFORTABLY IN BED. RESPIRATIONS ARE EVEN AND UNLABORED. PATIENT REMAINS ON 2L NC FOR COMFORT. NO S/S OF DISTRESS. NO C/O PAIN. CALL LIGHT WITHIN REACH. WILL CPOC.
[2019-06-17 20:00] VITALS: BP 103/54
[2019-06-17 21:28] VITALS: BP 129/67; BMI 26.6
[2019-06-17 21:29] LABS: CREATINE KINASE 60 UL (21-232); TROPONIN-I 0.034 ng/mL (0.000-0.060)
[2019-06-17] MEDS ORDERED: K-DUR20 MEQ PO ×2 (21:41→21:42)
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
[2019-06-17 23:00] VITALS: BP 102/48
--- NOTE | 2019-06-18 | NUR ---
PATIENT APPEARS TO BE SLEEPING. RESPIRATIONS ARE EVEN AND UNLABORED. NO S/S OF DISTRESS. NO C/O PAIN. CALL LIGHT WITHIN REACH. WILL CPOC.
--- NOTE | 2019-06-18 02:55 | NUR ---
PATIENT APPEARS TO BE SLEEPING. RESPIRATIONS ARE EVEN AND UNLABORED. NO S/S OF DISTRESS. NO C/OPAIN. CALL LIGHT WITHIN REACH. WILL CPOC.
[2019-06-18 03:50] VITALS: BP 99/53
[2019-06-18 05:05] LABS: BASOPHILS 0.3 % (0-2); EOSINOPHILS 3.6 % (0-7); HEMATOCRIT 39.9 % (42.0-54.0); HEMOGLOBIN 12.9 g/dL (13.5-17.5); IMMATURE GRANULOCYTES 0.3 % (0-5); LYMPHOCYTES 16.2 % (15-50); MCH 28.2 pg (26.0-34.0); MCHC 32.3 g/dL (31.0-37.0); MCV 87.1 fL (80.0-100.0); MEAN PLATELET VOLUME 9.3 fL (7.4-10.4); MONOCYTES 12.5 % (2-11); NEUTROPHILS 67.1 % (40-80); PLATELET COUNT 253 10x3/uL (130-400); RBC 4.58 10x6/uL (4.20-6.10); RDW 14.9 % (11.5-14.5); WBC 11.8 10x3/uL (4.8-10.8)
[2019-06-18 05:50] LABS: CALC OSMOLALITY 276 mosm/kg (275-300); CALCIUM 8.5 mg/dL (8.5-10.1); CARBON DIOXIDE 26.7 mmol/L (21.0-32.0); CHLORIDE - SERUM 104 mmol/L (98-107); GLUCOSE 96 mg/dL (74-106); MAGNESIUM - SERUM 2.2 mg/dL (1.8-2.4); PHOSPHOROUS 3.5 mg/dL (2.5-4.9); POTASSIUM - SERUM 4.2 mmol/L (3.5-5.1); PRO BNP 2086 pg/mL (0-450); SODIUM 138 mmol/L (136-145); UREA NITROGEN 14 mg/dL (7-18); eGFR NON AFRICAN AMERICAN 76 mL/min (90-120)
--- NOTE | 2019-06-18 08:45 | NUR ---
URINE SPECIMEN COLLECTED AND TAKEN TO LAB. WILL MONITOR.
[2019-06-18 09:43] VITALS: BP 90/41
[2019-06-18 09:58] LABS: APPEARANCE CLEAR (CLEAR); BILIRUBIN NEGATIVE (NEGATIVE); COLOR DK YELLOW (YELLOW); GLUCOSE NEGATIVE (NEGATIVE); KETONE NEGATIVE (NEGATIVE); NITRITE NEGATIVE (NEGATIVE); PROTEIN NEGATIVE (NEGATIVE); SPECIFIC GRAVITY 1.015 (1.005-1.020); UROBILINOGEN NORMAL (NORMAL)
[2019-06-18 12:14] VITALS: BP 101/56
[2019-06-18 14:40] VITALS: Ht 175.3 cm; Wt 75.5 kg
--- NOTE | 2019-06-18 15:47 | NUR ---
RT PLACED ON 100% NON-REBREATHER ORDERED BY DR. RICHTER.
[2019-06-18 16:17] VITALS: BP 103/55
--- NOTE | 2019-06-18 19:28 | NUR ---
RECEIVED BEDSIDE REPORT. PATIENT IS ALERT AND ORIENTED, RESTING COMFORTABLY IN BED. RESPIRATIONS ARE EVEN AND UNLABORED. NO S/S OF DISTRESS. NO C/O PAIN. CALL LIGHT WITHIN REACH. WILL CPOC.
[2019-06-18 20:00] VITALS: BP 105/58
[2019-06-19] VITALS: BP 100/56
[2019-06-19 04:00] VITALS: BP 107/62
[2019-06-19 05:03] LABS: BASOPHILS 0.3 % (0-2); EOSINOPHILS 5.6 % (0-7); HEMATOCRIT 41.5 % (42.0-54.0); HEMOGLOBIN 13.8 g/dL (13.5-17.5); IMMATURE GRANULOCYTES 0.2 % (0-5); LYMPHOCYTES 15.1 % (15-50); MCH 29.1 pg (26.0-34.0); MCHC 33.3 g/dL (31.0-37.0); MCV 87.4 fL (80.0-100.0); MEAN PLATELET VOLUME 9.1 fL (7.4-10.4); MONOCYTES 13.7 % (2-11); NEUTROPHILS 65.1 % (40-80); PLATELET COUNT 260 10x3/uL (130-400); RBC 4.75 10x6/uL (4.20-6.10); RDW 14.9 % (11.5-14.5); WBC 12.7 10x3/uL (4.8-10.8)
[2019-06-19 05:35] LABS: ANION GAP 10.7 mmol/L (8-16); CALCIUM 8.7 mg/dL (8.5-10.1); CARBON DIOXIDE 27.9 mmol/L (21.0-32.0); CREATININE - SERUM 1.1 mg/dL (0.6-1.3); MAGNESIUM - SERUM 2.2 mg/dL (1.8-2.4); PHOSPHOROUS 2.9 mg/dL (2.5-4.9); POTASSIUM - SERUM 4.6 mmol/L (3.5-5.1)
[2019-06-19 08:26] VITALS: BP 97/53
[2019-06-19 12:03] VITALS: BP 103/57
[2019-06-19 16:16] VITALS: BP 103/58
[2019-06-19 20:00] VITALS: BP 116/56
[2019-06-20] VITALS: BP 112/58
[2019-06-20 03:52] LABS: BASOPHILS 0.2 % (0-2); EOSINOPHILS 5.7 % (0-7); HEMATOCRIT 40.6 % (42.0-54.0); HEMOGLOBIN 13.4 g/dL (13.5-17.5); IMMATURE GRANULOCYTES 0.3 % (0-5); LYMPHOCYTES 12.5 % (15-50); MCH 28.6 pg (26.0-34.0); MCV 86.6 fL (80.0-100.0); MEAN PLATELET VOLUME 9.4 fL (7.4-10.4); MONOCYTES 12.8 % (2-11); NEUTROPHILS 68.5 % (40-80); PLATELET COUNT 283 10x3/uL (130-400); RBC 4.69 10x6/uL (4.20-6.10); RDW 14.7 % (11.5-14.5); WBC 14.3 10x3/uL (4.8-10.8)
[2019-06-20 04:00] VITALS: BP 108/51
[2019-06-20 04:17] LABS: ANION GAP 10.5 mmol/L (8-16); CALCIUM 8.7 mg/dL (8.5-10.1); CARBON DIOXIDE 27.6 mmol/L (21.0-32.0); CREATININE - SERUM 1.1 mg/dL (0.6-1.3); MAGNESIUM - SERUM 2.3 mg/dL (1.8-2.4); PHOSPHOROUS 3.1 mg/dL (2.5-4.9); POTASSIUM - SERUM 4.1 mmol/L (3.5-5.1)
--- NOTE | 2019-06-20 06:30 | NUR ---
PT HAS RESTED THROUGH THE NIGHT WITH 100% NRB MASK IN PLACE. ADLIB TO BATHROOM. NO NEEDS VOICED. NO CHANGE FROM INITIAL SHIFT ASSESSMENT. MONITOR AND CPOC.
[2019-06-20 08:19] VITALS: BP 99/58
[2019-06-20 11:48] VITALS: BP 103/61
[2019-06-20 16:44] VITALS: BP 90/44
--- NOTE | 2019-06-20 19:30 | NUR ---
REPORT AND INITIAL ROUNDS COMPLETED. PT RESTING IN BED. ALERT/ORIENTED. PLEASANT AND HOPING THAT HE WILL BE ABLE TO GO HOME SOON. CPOC. CALL LIGHT IN REACH.
[2019-06-20 20:00] VITALS: BP 106/64
[2019-06-21 04:00] VITALS: BP 102/52
[2019-06-21 05:36] LABS: BASOPHILS 0.6 % (0-2); EOSINOPHILS 7.5 % (0-7); HEMATOCRIT 41.4 % (42.0-54.0); HEMOGLOBIN 13.6 g/dL (13.5-17.5); IMMATURE GRANULOCYTES 0.1 % (0-5); LYMPHOCYTES 17.9 % (15-50); MCH 28.5 pg (26.0-34.0); MCHC 32.9 g/dL (31.0-37.0); MCV 86.6 fL (80.0-100.0); MEAN PLATELET VOLUME 9.1 fL (7.4-10.4); MONOCYTES 11.3 % (2-11); NEUTROPHILS 62.6 % (40-80); PLATELET COUNT 288 10x3/uL (130-400); RBC 4.78 10x6/uL (4.20-6.10); RDW 14.8 % (11.5-14.5)
[2019-06-21 05:54] LABS: WBC 8.7 10x3/uL (4.8-10.8)
[2019-06-21 06:01] LABS: CALC OSMOLALITY 272 mosm/kg (275-300); CALCIUM 8.4 mg/dL (8.5-10.1); CARBON DIOXIDE 26.8 mmol/L (21.0-32.0); CHLORIDE - SERUM 101 mmol/L (98-107); GLUCOSE 92 mg/dL (74-106); MAGNESIUM - SERUM 2.1 mg/dL (1.8-2.4); PHOSPHOROUS 3.1 mg/dL (2.5-4.9); POTASSIUM - SERUM 4.1 mmol/L (3.5-5.1); SODIUM 136 mmol/L (136-145); UREA NITROGEN 16 mg/dL (7-18); eGFR NON AFRICAN AMERICAN 76 mL/min (90-120)
[2019-06-21 09:20] VITALS: BP 107/61
[2019-06-21 12:10] VITALS: BP 100/58
[2019-06-21 17:56] VITALS: BP 117/66
[2019-06-21 20:00] VITALS: BP 103/76
--- NOTE | 2019-06-22 00:23 | NUR ---
PATIENT APPEARS TO BE SLEEPING. RESPIRATIONS ARE EVEN AND UNLABORED. NO S/S OF DISTRESS. CALL LIGHT WITHIN REACH. WILL CPOC.
[2019-06-22 00:33] VITALS: BP 101/51
--- NOTE | 2019-06-22 03:45 | NUR ---
PATIENT APPEARS TO BE SLEEPING. RESPIRATIONS ARE EVEN AND UNLABORED. NO S/S OF DISTRESS. CALL LIGHT WITHIN REACH. WILL CPOC.
[2019-06-22 04:00] VITALS: BP 97/53
[2019-06-22 06:57] LABS: CALC OSMOLALITY 272 mosm/kg (275-300); CALCIUM 8.8 mg/dL (8.5-10.1); CARBON DIOXIDE 27.3 mmol/L (21.0-32.0); CHLORIDE - SERUM 101 mmol/L (98-107); GLUCOSE 92 mg/dL (74-106); MAGNESIUM - SERUM 2.1 mg/dL (1.8-2.4); POTASSIUM - SERUM 4.5 mmol/L (3.5-5.1); SODIUM 136 mmol/L (136-145); UREA NITROGEN 14 mg/dL (7-18); eGFR NON AFRICAN AMERICAN 76 mL/min (90-120)
[2019-06-22 07:40] LABS: BASOPHILS 0.4 % (0-2); EOSINOPHILS 7.5 % (0-7); HEMATOCRIT 44.4 % (42.0-54.0); HEMOGLOBIN 14.9 g/dL (13.5-17.5); IMMATURE GRANULOCYTES 0.3 % (0-5); LYMPHOCYTES 15.7 % (15-50); MCHC 33.6 g/dL (31.0-37.0); MCV 86.5 fL (80.0-100.0); MEAN PLATELET VOLUME 9.5 fL (7.4-10.4); MONOCYTES 10.8 % (2-11); NEUTROPHILS 65.3 % (40-80); RBC 5.13 10x6/uL (4.20-6.10); RDW 14.7 % (11.5-14.5); WBC 9.8 10x3/uL (4.8-10.8)
[2019-06-22 07:48] LABS: PLATELET COUNT 351 10x3/uL (130-400)
[2019-06-22 08:17] VITALS: BP 97/55
[2019-06-22 12:00] VITALS: BP 121/64
[2019-06-22] MEDS ORDERED: PROTONIX40 MG PO (13:09)
[2019-06-22] MEDS ORDERED: MUCINEX600 MG PO (13:09)
--- NOTE | 2019-06-22 15:34 | NUR ---
IV AND TELEMETRY DCD. DCF PLANS GIVEN. UNDERSTANDING VOICED. ESCORTED TO CAR BY W/C.
--- NOTE | 2019-06-24 09:01 | MORECARE ---
CASE MANAGEMENT DISCHARGE SUMMARY PATIENT: JAZMIN CANADA UNIT: [id number] ADM DATE: 06/17/19 AGE: 78 : 39 SEX: M ROOM/BED: D.5905 AUTHOR: LYNN,DOC PHYSICIAN: REFERRING PHYSICIAN: DAKOTAH SCHNEIDER MD DATE OF SERVICE: 06/24/19 Discharge Plan Patient Name: JAZMIN CANADA Facility: [facility]:[place] : 1940 Planned Disposition: Home Anticipated Discharge Date: 06/22/19 Discharge Date: 06/22/2019 Expected LOS: 5 Initial Reviewer: [email or web address] Initial Review Date: 06/17/2019 Generated: 06/24/19 10:00 am DCP- Discharge Planning Updated by [email or web address]: Sadia Lacey on 06/17/19 4:[address] DC PLAN: Return home independently with his . ANTICIPATED DC NEEDS: Denied known dc needs at time of assessment. CM met with patient to complete initial dc planning assessment. CM educated patient on the CM role and verbal consent given by patient to complete assessment. CM verified patient's address, phone number, and emergency contact phone numbers. Patient lives at home with his and reports he is independent in his care at home. At discharge patient plans to return home with his and feels this is a safe discharge. CM discussed availability of home health, rehab services, and medical equipment. Patient denied known discharge needs at this time. Transportation provider at discharge will be his . CM will continue to follow and will assist as needed with dc plans/needs. Sadia Lacey RN, [facility] DCPIA - Discharge Planning Initial Assessment Updated by [email or web address]: Sadia Lacey on 06/17/19 5:13 pm * Is the patient Alert and Oriented? Yes * PCP Dr. John - [facility] * Pharmacy [facility] -[facility] * Preadmission Environment Home with Family * ADLs Independent * Equipment None * List name and contact numbers for known caregivers / representatives who currently or will assist patient after discharge: Zenaida Canada - spouse - [phone] * Verbal permission to speak to the caregivers and representatives has been obtained from the patient. Yes * Community resources currently utilized None * Additional services required to return to the preadmission environment? No * Can the patient safely return to the preadmission environment? Yes * Has this patient been hospitalized within the prior 30 days at any hospital? No Last DP export: 06/17/19 4:22 Patient Name: JAZMIN CANADA Page [phone] at 0901 All edits/amendments must be made on the electronic document DICTATION DATE: 06/24/19899 DIRECTOR OF STRATEGIC PROGRAMS: BERNARDINO 06/24/19899 RPT#: [id number] DC DATE:06/22/19 STATUS: DIS IN [facility] [address] [place] [address] END OF REPORT
== END 2019-06-22 15:34 | disposition home or self-care (01) | DRG 199 ==
LOC: D.ER 13:05 → D.M2 15:44 → D.SDCHOLD 06-22 12:43 → D.M2 06-22 12:43
PROVIDERS: Family Medicine; ADMIT Internal Medicine Nephrology; ATTEND Internal Medicine Nephrology
DX: J93.11 Primary spontaneous pneumothorax (principal); I50.23 Acute on chronic systolic (congestive) heart failure; J96.01 Acute respiratory failure with hypoxia; E87.1 Hypo-osmolality and hyponatremia; J98.11 Atelectasis; I25.10 Atherosclerotic heart disease of native coronary artery without angina pectoris; Z95.810 Presence of automatic (implantable) cardiac defibrillator; D64.9 Anemia, unspecified

== ENCOUNTER → 2019-07-12 20:09 | Outpatient (CLI) | payer MEDICARE, OTHER ==
[2019-06-18 14:40] VITALS: BMI 26.6
[~2019-07-12 20:09] MED LIST changes: +K-DUR20 MEQ PO; +MUCINEX600 MG PO; +PROTONIX40 MG PO
[2019-07-12 21:35] LABS: CHOL - HDL RATIO 2.2 ratio (2.3-4.9); LDL-HDL RATIO 0.9 ratio (1.5-3.5)
== END | disposition home or self-care (01) ==
LOC: D.LABREF 20:09
PROVIDERS: ATTEND Internal Medicine Cardiovascular Disease
DX: I25.10 Atherosclerotic heart disease of native coronary artery without angina pectoris (principal)

== ENCOUNTER → 2019-08-17 10:14 | Outpatient (CLI) | payer MEDICARE, OTHER ==
[2019-06-18 14:40] VITALS: BMI 26.6
== END | disposition home or self-care (01) ==
LOC: D.RAD 10:14
PROVIDERS: ATTEND Internal Medicine Pulmonary Disease
DX: I50.9 Heart failure, unspecified (principal); J93.9 Pneumothorax, unspecified

== ENCOUNTER 2019-09-13 09:22 | Observation (INO) | payer MEDICARE, OTHER ==
[~2019-09-13] VITALS: Ht 175.3 cm; Wt 77.1 kg
[2019-09-13] MEDS ORDERED: NITROSTAT0.4 MG SL (09:30)
[2019-09-13] MEDS ORDERED: REPATHA SY140 MG/1 M SC (09:31)
[2019-09-13 09:34] VITALS: BP 120/64
[2019-09-13 09:49] LABS: HEMOGLOBIN 14.4 g/dL (13.5-17.5); LYMPHOCYTES 15.4 % (15-50); MCH 28.2 pg (26.0-34.0); MCV 88.2 fL (80.0-100.0); MEAN PLATELET VOLUME 9.1 fL (7.4-10.4); NEUTROPHILS 76.1 % (40-80); PLATELET COUNT 300 10x3/uL (130-400); RDW 15.1 % (11.5-14.5); WBC 8.7 10x3/uL (4.8-10.8)
[2019-09-13 09:58] LABS: CALC OSMOLALITY 275 mosm/kg (275-300); CARBON DIOXIDE 27.1 mmol/L (21.0-32.0); CHLORIDE - SERUM 104 mmol/L (98-107); GLUCOSE 88 mg/dL (74-106); POTASSIUM - SERUM 4.2 mmol/L (3.5-5.1); SODIUM 137 mmol/L (136-145); UREA NITROGEN 20 mg/dL (7-18); eGFR NON AFRICAN AMERICAN 76 mL/min (90-120)
[2019-09-13 10:12] LABS: ALBUMIN 3.5 g/dL (3.4-5.0); ALKALINE PHOSPHATASE 79 U/L (30-120); ALT (SGPT) 21 U/L (10-68); BILIRUBIN - TOTAL 0.92 mg/dL (0.2-1.3); CKMB 1.5 U/L (0.0-3.6); CREATINE KINASE 54 UL (21-232); MAGNESIUM - SERUM 2.3 mg/dL (1.8-2.4); PROTEIN - SERUM 6.8 g/dL (6.4-8.2); TROPONIN-I 0.018 ng/mL (0.000-0.060)
[2019-09-13 10:19] LABS: APTT 28.4 SECONDS (22.8-39.4); INR 1.08 (0.85-1.17)
[2019-09-13 12:38] LABS: CKMB 1.4 U/L (0.0-3.6); CREATINE KINASE 49 UL (21-232); TROPONIN-I < 0.017 ng/mL (0.000-0.060)
[2019-09-13 13:34] VITALS: BP 120/64; BMI 25.1
[2019-09-13 17:44] VITALS: BP 105/65
[2019-09-13 18:50] LABS: CKMB 1.5 U/L (0.0-3.6); CREATINE KINASE 49 UL (21-232); TROPONIN-I 0.016 ng/mL (0.000-0.060)
[2019-09-13 20:00] VITALS: BP 98/54
[2019-09-14] VITALS: BP 94/51
[2019-09-14 01:02] LABS: CKMB 1.1 U/L (0.0-3.6); CREATINE KINASE 44 UL (21-232)
[2019-09-14 01:05] LABS: TROPONIN-I 0.133 ng/mL (0.000-0.060)
[2019-09-14 04:00] VITALS: BP 100/51
[2019-09-14 05:45] LABS: HEMOGLOBIN 13.8 g/dL (13.5-17.5); LYMPHOCYTES 20.9 % (15-50); MCH 28.8 pg (26.0-34.0); MCHC 32.9 g/dL (31.0-37.0); MCV 87.5 fL (80.0-100.0); MEAN PLATELET VOLUME 9.2 fL (7.4-10.4); NEUTROPHILS 67.6 % (40-80); PLATELET COUNT 276 10x3/uL (130-400); RDW 14.5 % (11.5-14.5)
[2019-09-14 06:13] LABS: CALC OSMOLALITY 266 mosm/kg (275-300); CALCIUM 8.4 mg/dL (8.5-10.1); CARBON DIOXIDE 24.7 mmol/L (21.0-32.0); CHLORIDE - SERUM 102 mmol/L (98-107); GLUCOSE 89 mg/dL (74-106); PHOSPHOROUS 3.2 mg/dL (2.5-4.9); POTASSIUM - SERUM 4.2 mmol/L (3.5-5.1); SODIUM 133 mmol/L (136-145); UREA NITROGEN 19 mg/dL (7-18); eGFR NON AFRICAN AMERICAN 76 mL/min (90-120)
[2019-09-14 08:42] VITALS: BP 103/62
[2019-09-14 10:06] VITALS: Ht 175.3 cm; Wt 77.1 kg
--- NOTE | 2019-09-14 15:11 | NUR ---
IV AND TELEMETRY DCD. DC PLANS GIVEN. UNDERSTANDING VOICED. ESCORTED TO CAR BY W/C.
--- NOTE | 2019-09-14 15:52 | MORECARE ---
CASE MANAGEMENT DISCHARGE SUMMARY PATIENT: JAZMIN SEGOVIA UNIT: [id number] ADM DATE: 09/13/19 AGE: 79 : 39 SEX: M ROOM/BED: D.[facility]5 AUTHOR: ADEBAYO BAILEY PHYSICIAN: REFERRING PHYSICIAN: DAKOTAH SCHNEIDER MD DATE OF SERVICE: 09/14/19 Discharge Plan Patient Name: JAZMIN SEGOVIA [facility] [facility] 1940 Planned Disposition: Home Anticipated Discharge Date: 09/14/19 Discharge Date: 09/14/2019 Expected LOS: 1 Initial Reviewer: [email or web address] Initial Review Date: 09/14/2019 Generated: 09/14/19 4:51 pm Comments DCP- Discharge Planning Updated by [email or web address]: Linda Batista on 09/14/19 8:[address] CRESPO SERVED, EXPLAINED, AND SIGNED BY PATIENT. THE ORIGINAL WAS PROVIDED TO THE PATIENT AND COPY PLACED ON CHART. Coverage Notice Reviewer: [email or web address] - Linda Batista Notice Issued Date-Time: 09/14/2019 8:00 Notice Type: Medicare Outpatient Observation Notice Notice Delivered To: Patient Relationship to Patient: Cardiothoracic Anesthesia Technician Name: Delivery Method: HAND - Hand Delivered Neda Days: Prior Verbal Notification: Recipient Understood Notice: Yes Recipient Signature: Yes Med Rec Note Co-signed by Attending: Coverage Notice Comment: CRESPO SERVED, EXPLAINED, AND SIGNED BY PATIENT. THE ORIGINAL WAS PROVIDED TO THE PATIENT AND COPY PLACED ON CHART. Patient Name: JAZMIN SEGOVIA Page [phone] at 1552 All edits/amendments must be made on the electronic document DICTATION DATE: 09/14/19 1551 PROBATION MANAGER: BERNARDINO 09/14/19 1551 RPT#: [id number] DC DATE:09/14/19 STATUS: DIS IN [facility] [address] [place] [address] END OF REPORT
== END 2019-09-14 15:12 | disposition home or self-care (01) ==
LOC: D.ER 09:22 → D.M2 11:43 → OBSVTIME 12:05 → D.M2 09-14 15:12
PROVIDERS: Family Medicine; ADMIT Internal Medicine Nephrology; ATTEND Internal Medicine Nephrology
DX: I50.23 Acute on chronic systolic (congestive) heart failure (principal); I25.5 Ischemic cardiomyopathy; E87.1 Hypo-osmolality and hyponatremia; I25.10 Atherosclerotic heart disease of native coronary artery without angina pectoris; N17.9 Acute kidney failure, unspecified; E78.5 Hyperlipidemia, unspecified; Z95.0 Presence of cardiac pacemaker

== ENCOUNTER → 2019-10-05 09:03 | Outpatient (CLI) | payer MEDICARE, OTHER ==
[2019-09-14 10:06] VITALS: BMI 25.1
[~2019-10-05 09:03] MED LIST changes: +NITROSTAT0.4 MG SL; +REPATHA SY140 MG/1 M SC
== END | disposition home or self-care (01) ==
LOC: D.HCCARDIO 10-04 09:00
PROVIDERS: ATTEND Internal Medicine Cardiovascular Disease
DX: I25.10 Atherosclerotic heart disease of native coronary artery without angina pectoris (principal)

== ENCOUNTER 2019-11-14 05:46 | Inpatient (IN) | payer MEDICARE, OTHER ==
[~2019-11-14] VITALS: Ht 175.3 cm; Wt 72.6 kg
[2019-11-14 06:21] LABS: BASOPHILS 0.4 % (0-2); EOSINOPHILS 4.3 % (0-7); HEMATOCRIT 41.3 % (42.0-54.0); HEMOGLOBIN 13.7 g/dL (13.5-17.5); IMMATURE GRANULOCYTES 0.2 % (0-5); LYMPHOCYTES 16.4 % (15-50); MCH 28.6 pg (26.0-34.0); MCHC 33.2 g/dL (31.0-37.0); MCV 86.2 fL (80.0-100.0); MEAN PLATELET VOLUME 9.3 fL (7.4-10.4); MONOCYTES 9.2 % (2-11); NEUTROPHILS 69.5 % (40-80); PLATELET COUNT 287 10x3/uL (130-400); RBC 4.79 10x6/uL (4.20-6.10); RDW 15.1 % (11.5-14.5); WBC 9.2 10x3/uL (4.8-10.8)
--- NOTE | 2019-11-14 06:25 | NUR ---
RT AT PT BEDSIDE.
[2019-11-14 06:30] LABS: APTT 31.5 SECONDS (22.8-39.4); INR 1.14 (0.85-1.17); PROTIME 14.5 SECONDS (11.6-15.0)
--- NOTE | 2019-11-14 06:36 | NUR ---
PT REPORTS DECREASE IN SOB AFTER RECEIVING UPRAFT
[2019-11-14 06:45] VITALS: BP 138/79
--- NOTE | 2019-11-14 06:48 | NUR ---
DR ARANDA AT BEDSIDE DISCUSSING PLAN OF CARE WITH PT AND FAMILY MEMBER
[2019-11-14 06:54] LABS: ALBUMIN 3.6 g/dL (3.4-5.0); ALKALINE PHOSPHATASE 77 U/L (30-120); ALT (SGPT) 17 U/L (10-68); BILIRUBIN - TOTAL 2.03 mg/dL (0.2-1.3); CALC OSMOLALITY 269 mosm/kg (275-300); CALCIUM 8.8 mg/dL (8.5-10.1); CARBON DIOXIDE 22.8 mmol/L (21.0-32.0); CHLORIDE - SERUM 103 mmol/L (98-107); CKMB 1.9 U/L (0.0-3.6); CREATINE KINASE 89 UL (21-232); CREATININE - SERUM 0.9 mg/dL (0.6-1.3); GLUCOSE 100 mg/dL (74-106); POTASSIUM - SERUM 3.8 mmol/L (3.5-5.1); PRO BNP 2828 pg/mL (0-450); PROTEIN - SERUM 6.7 g/dL (6.4-8.2); SODIUM 135 mmol/L (136-145); UREA NITROGEN 12 mg/dL (7-18); eGFR NON AFRICAN AMERICAN 86 mL/min (90-120)
[2019-11-14 06:55] LABS: TROPONIN-I < 0.017 ng/mL (0.000-0.060)
--- NOTE | 2019-11-14 11:17 | NUR ---
ARRIVES TO UNIT PER STRETCHER, IV INFUSING, O2 PER NC AT 2L, CONT TO MONITOR
[2019-11-14 11:31] VITALS: BP 135/85
--- NOTE | 2019-11-14 13:00 | NUR ---
THORACENTESIS PERFORMED TO PT R LOWER LOBE, KEN WELL, SAT IMPROVED FROM 96 TO 99% ON 2L NC, CONT TO MONITOR
[2019-11-14 13:33] LABS: PROTEIN - BODY FLUID 1.1 G/DL
[2019-11-14 16:00] VITALS: BP 102/64
--- NOTE | 2019-11-14 18:00 | NUR ---
TELE CALLED TO SAY PT WAS HAVING PVC, PT RESTING IN BED USING I.S., PT STATES THAT HE SEES DR CASTELLANOS FOR HIS HEART AND THAT HE HAS PVC FROM TIME AND TIME AND HE IS USED TO IT, CONT TO MONITOR
[2019-11-14 20:00] VITALS: BP 120/65
--- NOTE | 2019-11-14 22:28 | NUR ---
SITTING UP IN BED WATCHING TV. USING INSENTIVE SPIROMETER. RESP UNLAOBRED. NO DISTRESS NOTED. IV TO LFA ITNACT WITHOUT REDNESS OR EDEMA NOTED. DRESSING TO RIGHT CHEST INTACT WITHOUT DRAINAGE. CL IN REACH
[2019-11-15] VITALS: BP 101/59
--- NOTE | 2019-11-15 01:45 | NUR ---
I have reviewed this patient and I concur with the Shift Assessment completed by the Licensed Practical Nurse today this shift.
[2019-11-15 04:00] VITALS: BP 100/58
[2019-11-15 05:18] LABS: BASOPHILS 0.2 % (0-2); EOSINOPHILS 2.2 % (0-7); HEMATOCRIT 38.6 % (42.0-54.0); HEMOGLOBIN 12.6 g/dL (13.5-17.5); IMMATURE GRANULOCYTES 0.2 % (0-5); LYMPHOCYTES 15.3 % (15-50); MCH 28.1 pg (26.0-34.0); MCHC 32.6 g/dL (31.0-37.0); MCV 86.2 fL (80.0-100.0); MEAN PLATELET VOLUME 9.6 fL (7.4-10.4); MONOCYTES 9.2 % (2-11); NEUTROPHILS 72.9 % (40-80); PLATELET COUNT 252 10x3/uL (130-400); RBC 4.48 10x6/uL (4.20-6.10); WBC 10.2 10x3/uL (4.8-10.8)
[2019-11-15 05:33] LABS: CALC OSMOLALITY 268 mosm/kg (275-300); CALCIUM 7.9 mg/dL (8.5-10.1); CHLORIDE - SERUM 104 mmol/L (98-107); CREATININE - SERUM 0.8 mg/dL (0.6-1.3); GLUCOSE 88 mg/dL (74-106); POTASSIUM - SERUM 3.9 mmol/L (3.5-5.1); SODIUM 135 mmol/L (136-145); UREA NITROGEN 13 mg/dL (7-18); eGFR NON AFRICAN AMERICAN > 90 mL/min (90-120)
[2019-11-15 09:07] VITALS: BP 123/69
[2019-11-15 12:26] VITALS: BP 115/65
[2019-11-15 17:10] VITALS: BP 156/69
--- NOTE | 2019-11-15 20:17 | NUR ---
REC'D AT CHGE OF SHIFT WALKING ROUNDS STANDING LOOKING OUT WINDOW. 2X2 DRSG INTACT RIGHT POSTERIOR SCAPULA AREA STATES BREATHING MUCH BETTER.02 2L NC. WILL CONTINUE TO MONITOR FOR ANY CHGES RESP. STATUS AND FOLLOW CURRENT PLAN OF CARE.
[2019-11-15 20:37] VITALS: BP 117/67
[2019-11-16 00:50] VITALS: BP 101/48
--- NOTE | 2019-11-16 06:45 | NUR ---
ALERT AND ORIENTED. NO C/O PAIN. NO S/S OF ACUTE DISTRESS NOTED. POD #1 RIGHT THORACENTESIS, DRESSING C/D/I. ON 2L O2, NC. IV TO LEFT FOREARM, SL. SITE PATENT WITHOUT REDNESS OR SWELLING. DENIES ANY NEEDS AT THIS TIME. CALL LIGHT IN REACH. WILL CONTINUE TO MONITOR.
[2019-11-16 06:48] VITALS: BP 92/46
[2019-11-16 07:10] LABS: BASOPHILS 0.2 % (0-2); EOSINOPHILS 3.3 % (0-7); HEMATOCRIT 43.5 % (42.0-54.0); HEMOGLOBIN 14.1 g/dL (13.5-17.5); IMMATURE GRANULOCYTES 0.2 % (0-5); LYMPHOCYTES 11.1 % (15-50); MCH 27.9 pg (26.0-34.0); MCHC 32.4 g/dL (31.0-37.0); MEAN PLATELET VOLUME 9.4 fL (7.4-10.4); MONOCYTES 11.3 % (2-11); NEUTROPHILS 73.9 % (40-80); PLATELET COUNT 265 10x3/uL (130-400); RBC 5.06 10x6/uL (4.20-6.10); RDW 15.2 % (11.5-14.5); WBC 12.4 10x3/uL (4.8-10.8)
[2019-11-16 07:27] LABS: % SATURATION 9 % (15-55); IRON 22 ug/dl (35-150); TOTAL IRON BIND CAPACITY 233 ug/dl (260-445); UNSAT IRON BIND CAPACITY 211 ug/dl (150-375)
[2019-11-16 07:39] LABS: ANION GAP 11.2 mmol/L (8-16); CALCIUM 8.7 mg/dL (8.5-10.1); CARBON DIOXIDE 27.6 mmol/L (21.0-32.0); POTASSIUM - SERUM 3.8 mmol/L (3.5-5.1)
[2019-11-16 07:40] LABS: CREATININE - SERUM 1.1 mg/dL (0.6-1.3)
[2019-11-16 08:24] VITALS: BP 94/52
[2019-11-16 10:40] VITALS: Ht 175.3 cm; Wt 72.6 kg
[2019-11-16 12:14] VITALS: BP 102/62
[2019-11-16 16:45] VITALS: BP 118/71
--- NOTE | 2019-11-16 18:47 | NUR ---
RESTING IN BED WITH EYES OPEN. NO C/O PAIN. NO S/S OF ACUTE DISTRESS NOTED. DENIES ANY NEEDS AT THIS TIME. WILL CONTINUE TO MONITOR.
--- NOTE | 2019-11-16 19:50 | NUR ---
I have reviewed this patient and I concur with the Shift Assessment completed by the Licensed Practical Nurse today this shift.
[2019-11-16 20:57] VITALS: BP 100/54
[2019-11-17 01:00] VITALS: BP 104/59
[2019-11-17 04:58] LABS: BASOPHILS 0.2 % (0-2); EOSINOPHILS 4.5 % (0-7); HEMATOCRIT 43.5 % (42.0-54.0); HEMOGLOBIN 14.5 g/dL (13.5-17.5); IMMATURE GRANULOCYTES 0.2 % (0-5); LYMPHOCYTES 13.7 % (15-50); MCH 28.5 pg (26.0-34.0); MCHC 33.3 g/dL (31.0-37.0); MCV 85.5 fL (80.0-100.0); MEAN PLATELET VOLUME 9.3 fL (7.4-10.4); MONOCYTES 12.2 % (2-11); NEUTROPHILS 69.2 % (40-80); PLATELET COUNT 278 10x3/uL (130-400); RBC 5.09 10x6/uL (4.20-6.10); RDW 14.8 % (11.5-14.5); WBC 12.3 10x3/uL (4.8-10.8)
[2019-11-17 05:33] LABS: CALC OSMOLALITY 267 mosm/kg (275-300); CALCIUM 8.7 mg/dL (8.5-10.1); CARBON DIOXIDE 29.3 mmol/L (21.0-32.0); CHLORIDE - SERUM 98 mmol/L (98-107); CREATININE - SERUM 0.9 mg/dL (0.6-1.3); GLUCOSE 110 mg/dL (74-106); MAGNESIUM - SERUM 2.1 mg/dL (1.8-2.4); PHOSPHOROUS 3.2 mg/dL (2.5-4.9); POTASSIUM - SERUM 3.9 mmol/L (3.5-5.1); SODIUM 133 mmol/L (136-145); UREA NITROGEN 15 mg/dL (7-18); eGFR NON AFRICAN AMERICAN 86 mL/min (90-120)
[2019-11-17 06:30] VITALS: BP 102/51
--- NOTE | 2019-11-17 07:00 | NUR ---
ALERT AND ORIENTED. NO C/O PAIN. NO S/S OF ACUTE DISTRESS NOTED. POD #2 RIGHT THORACENTESIS, DRESSING C/D/I. ON 2L O2, NC. IV TO LEFT FOREARM, SL. SITE PATENT WITHOUT REDNESS OR SWELLING. DENIES ANY NEEDS AT THIS TIME. CALL LIGHT IN REACH. WILL CONTINUE TO MONITOR.
[2019-11-17 08:45] VITALS: BP 99/58
--- NOTE | 2019-11-17 10:19 | MORECARE ---
CASE MANAGEMENT DISCHARGE SUMMARY PATIENT: JAZMIN SEGOVIA UNIT: [id number] ADM DATE: 11/14/19 AGE: 79 : 39 SEX: M ROOM/BED: D.2208 AUTHOR: LYNN,DOC PHYSICIAN: REFERRING PHYSICIAN: DAKOTAH SCHNEIDER MD DATE OF SERVICE: 11/17/19 Discharge Plan Patient Name: JAZMIN SEGOVIA Facility: [facility]:[place] : 1940 Planned Disposition: Home or Self Care Anticipated Discharge Date: Discharge Date: Expected LOS: Initial Reviewer: [id number] Initial Review Date: 11/14/2019 Generated: 11/17/19 11:18 am Comments DCP- Discharge Planning Updated by [id number]: Joy Villarreal on 11/17/19 9:[address] Patient Name: JAZMIN SEGOVIA Admission Status: ER Accout number: [id number] Admission Date: 11-14-2019 : 1940 Admission Diagnosis: Attending: DAKOTAH SCHNEIDER Current LOS: 3 Anticipated DC Date: Planned Disposition: Home or Self Care Primary Insurance: MEDICARE A & B Discharge Planning Comments: CM met with patient to complete initial dc planning assessment. CM educated patient on the CM role and verbal consent given by patient to complete assessment. Patient lives at home with his where he is independent with his care. At discharge patient plans to return home and feels this is a safe discharge. CM discussed availability of home health, rehab services, and medical equipment. He did not want home health, declination signed. IMM signed and went over. His will be his rolloff driver home. I will get a walk test with RT before he discharges. I have ordered that and spoke with Eleanor with RT. Patient denied known discharge needs at this time. CM will continue to follow and will assist as needed with dc plans/needs. Nonprofit Director: Joy Villarreal DCPIA - Discharge Planning Initial Assessment Updated by [email or web address]: Joy Villarreal on 11/17/19 10:11 am * Is the patient Alert and Oriented? Yes * How many steps to enter\exit or inside your home? * PCP NICOL * Pharmacy [facility] * Preadmission Environment Home with Family * ADLs Independent * Equipment None * List name and contact numbers for known caregivers / representatives who currently or will assist patient after discharge: ELVIRA () [phone] * Verbal permission to speak to the caregivers and representatives has been obtained from the patient. N/A * Community resources currently utilized None * Additional services required to return to the preadmission environment? No * Can the patient safely return to the preadmission environment? Yes * Has this patient been hospitalized within the prior 30 days at any hospital? No Coverage Notice Reviewer: [id number] Jorge Villarreal Notice Issued Date-Time: 11/17/2019 10:00 Notice Type: IM Discharge Notice Notice Delivered To: Patient Relationship to Patient: Paddle Dyeing Machine Operator Name: Delivery Method: HAND - Hand Delivered Neda Days: Prior Verbal Notification: Recipient Understood Notice: Yes Recipient Signature: Yes Med Rec Note Co-signed by Attending: Coverage Notice Comment: IMM SERVED Reviewer: [id number] Jorge Villarreal Notice Issued Date-Time: 11/17/2019 10:00 Notice Type: Patient Choice Letter Notice Delivered To: Patient Relationship to Patient: Paddle Dyeing Machine Operator Name: Delivery Method: HAND - Hand Delivered Neda Days: Prior Verbal Notification: Recipient Understood Notice: Yes Recipient Signature: Yes Med Rec Note Co-signed by Attending: Coverage Notice Comment: REFUSED HH Patient Name: JAZMIN SEGOVIA Page [phone] at 1019 All edits/amendments must be made on the electronic document DICTATION DATE: 11/17/19 1018 BROADCAST CHECKER: BERNARDINO 11/17/19 1018 RPT#: [id number] DC DATE: STATUS: ADM IN [facility] [address] [place] [address] END OF REPORT
[2019-11-17] MEDS ORDERED: LASIX40 MG PO (11:45)
[2019-11-17] MEDS ORDERED: K-DUR20 MEQ PO (11:45)
--- NOTE | 2019-11-17 11:46 | MORECARE ---
CASE MANAGEMENT DISCHARGE SUMMARY PATIENT: JAZMIN SEGOVIA UNIT: [id number] ADM DATE: 11/14/19 AGE: 79 : 39 SEX: M ROOM/BED: D.2208 AUTHOR: LYNNDOC PHYSICIAN: REFERRING PHYSICIAN: DAKOTAH SCHNEIDER MD DATE OF SERVICE: 11/17/19 Discharge Plan Patient Name: JAZMIN SEGOVIA Facility: [facility]:[place] : 1940 Planned Disposition: Home or Self Care Anticipated Discharge Date: Discharge Date: Expected LOS: Initial Reviewer: [email or web address] Initial Review Date: 11/14/2019 Generated: 11/17/19 12:45 pm Comments DCP- Discharge Planning Updated by [id number]: Joy Villarreal on 11/17/19 10:[address] walk test done by RT and patient was 98% on room air and 99% when ambulating. does not need Home O2 DCP- Discharge Planning Updated by [id number]: Joy Villarreal on 11/17/19 9:[address] Patient Name: JAZMIN SEGOVIA Admission Status: ER Accout number: [id number] Admission Date: 11-14-2019 : 1940 Admission Diagnosis: Attending: DAKOTAH SCHNEIDER Current LOS: 3 Anticipated DC Date: Planned Disposition: Home or Self Care Primary Insurance: MEDICARE A & B Discharge Planning Comments: CM met with patient to complete initial dc planning assessment. CM educated patient on the CM role and verbal consent given by patient to complete assessment. Patient lives at home with his where he is independent with his care. At discharge patient plans to return home and feels this is a safe discharge. CM discussed availability of home health, rehab services, and medical equipment. He did not want home health, declination signed. IMM signed and went over. His will be his driver retraining instructor home. I will get a walk test with RT before he discharges. I have ordered that and spoke with Eleanor with RT. Patient denied known discharge needs at this time. CM will continue to follow and will assist as needed with dc plans/needs. End Touching Machine Operator: Joy Villarreal DCPIA - Discharge Planning Initial Assessment Updated by [email or web address]: Joy Villarreal on 11/17/19 10:11 am * Is the patient Alert and Oriented? Yes * How many steps to enter\exit or inside your home? * PCP NICOL * [facility] * Preadmission Environment Home with Family * ADLs Independent * Equipment None * List name and contact numbers for known caregivers / representatives who currently or will assist patient after discharge: ELVIRA () [phone] * Verbal permission to speak to the caregivers and representatives has been obtained from the patient. N/A * Community resources currently utilized None * Additional services required to return to the preadmission environment? No * Can the patient safely return to the preadmission environment? Yes * Has this patient been hospitalized within the prior 30 days at any hospital? No Coverage Notice Reviewer: [id number] Jorge Villarreal Notice Issued Date-Time: 11/17/2019 10:00 Notice Type: IM Discharge Notice Notice Delivered To: Patient Relationship to Patient: Grader Operator Name: Delivery Method: HAND - Hand Delivered Neda Days: Prior Verbal Notification: Recipient Understood Notice: Yes Recipient Signature: Yes Med Rec Note Co-signed by Attending: Coverage Notice Comment: IMM SERVED Reviewer: [email or web address] Jorge Villarreal Notice Issued Date-Time: 11/17/2019 10:00 Notice Type: Patient Choice Letter Notice Delivered To: Patient Relationship to Patient: Grader Operator Name: Delivery Method: HAND - Hand Delivered Neda Days: Prior Verbal Notification: Recipient Understood Notice: Yes Recipient Signature: Yes Med Rec Note Co-signed by Attending: Coverage Notice Comment: REFUSED HH Last DP export: 11/17/19 9:19 a Patient Name: JAZMIN SEGOVIA Page [phone] at 1146 All edits/amendments must be made on the electronic document DICTATION DATE: 11/17/19 114[address] DEL[address] DRIVER: BERNARDINO 11/17/19 1145 RPT#: [id number] DC DATE: STATUS: ADM IN [facility] [address] [place] [address] END OF REPORT
--- NOTE | 2019-11-17 12:36 | NUR ---
DISCHARGED PATIENT HOME WITH FAMILY. DISCONTINUED IV, CATHETER TIP INTACT. WENT OVER DISCHARGE INSTRUCTIONS WITH PATIENT AND FAMILY, VERBALIZED UNDERSTANDING. DENIES ANYTHING FURTHER.
--- NOTE | 2019-11-18 09:08 | MORECARE ---
CASE MANAGEMENT DISCHARGE SUMMARY PATIENT: JAZMIN SEGOVIA UNIT: [id number] ADM DATE: 11/14/19 AGE: 79 : 39 SEX: M ROOM/BED: D.2208 AUTHOR: LYNNDOC PHYSICIAN: REFERRING PHYSICIAN: DAKOTAH SCHNEIDER MD DATE OF SERVICE: 11/18/19 Discharge Plan Patient Name: JAZMIN SEGOVIA Facility: [facility]:[place] : 1940 Planned Disposition: Home or Self Care Anticipated Discharge Date: Discharge Date: 11/17/2019 Expected LOS: Initial Reviewer: [email or web address] Initial Review Date: 11/14/2019 Generated: 11/18/19 10:08 am Comments DCP- Discharge Planning Updated by [email or web address]: Joy Villarreal on 11/17/19 10:[address] walk test done by RT and patient was 98% on room air and 99% when ambulating. does not need Home O2 DCP- Discharge Planning Updated by [id number]: Joy Villarreal on 11/17/19 9:[address] Patient Name: JAZMIN SEGOVIA Admission Status: ER Accout number: [id number] Admission Date: 11-14-2019 : 1940 Admission Diagnosis: Attending: DAKOTAH SCHNEIDER Current LOS: 3 Anticipated DC Date: Planned Disposition: Home or Self Care Primary Insurance: MEDICARE A & B Discharge Planning Comments: CM met with patient to complete initial dc planning assessment. CM educated patient on the CM role and verbal consent given by patient to complete assessment. Patient lives at home with his where he is independent with his care. At discharge patient plans to return home and feels this is a safe discharge. CM discussed availability of home health, rehab services, and medical equipment. He did not want home health, declination signed. IMM signed and went over. His will be his short haul driver home. I will get a walk test with RT before he discharges. I have ordered that and spoke with Eleanor with RT. Patient denied known discharge needs at this time. CM will continue to follow and will assist as needed with dc plans/needs. Tie Tape Machine Operator: Joy Villarreal DCPIA - Discharge Planning Initial Assessment Updated by [email or web address]: Joy Villarreal on 11/17/19 10:11 am * Is the patient Alert and Oriented? Yes * How many steps to enter\exit or inside your home? * PCP NICOL * [facility] * Preadmission Environment Home with Family * ADLs Independent * Equipment None * List name and contact numbers for known caregivers / representatives who currently or will assist patient after discharge: ELVIRA () [phone] * Verbal permission to speak to the caregivers and representatives has been obtained from the patient. N/A * Community resources currently utilized None * Additional services required to return to the preadmission environment? No * Can the patient safely return to the preadmission environment? Yes * Has this patient been hospitalized within the prior 30 days at any hospital? No Coverage Notice Reviewer: [id number] Jorge Villarreal Notice Issued Date-Time: 11/17/2019 10:00 Notice Type: IM Discharge Notice Notice Delivered To: Patient Relationship to Patient: Money Counter Name: Delivery Method: HAND - Hand Delivered Neda Days: Prior Verbal Notification: Recipient Understood Notice: Yes Recipient Signature: Yes Med Rec Note Co-signed by Attending: Coverage Notice Comment: IMM SERVED Reviewer: [id number] Jorge Villarreal Notice Issued Date-Time: 11/17/2019 10:00 Notice Type: Patient Choice Letter Notice Delivered To: Patient Relationship to Patient: Money Counter Name: Delivery Method: HAND - Hand Delivered Neda Days: Prior Verbal Notification: Recipient Understood Notice: Yes Recipient Signature: Yes Med Rec Note Co-signed by Attending: Coverage Notice Comment: REFUSED HH Last DP export: 11/17/19 10:46 a Patient Name: JAZMIN SEGOVIA Page [phone] at 0908 All edits/amendments must be made on the electronic document DICTATION DATE: 11/18/19907 HEARING SCREEN COORDINATOR: BERNARDINO 11/18/19 09 RPT#: [id number] DC DATE:11/17/19 STATUS: DIS IN [facility] [address] [place] [address] END OF REPORT
== END 2019-11-17 12:36 | disposition home or self-care (01) | DRG 186 ==
LOC: D.ER 05:46 → D.MS 09:55
PROVIDERS: Emergency Medicine; Family Medicine; Internal Medicine Pulmonary Disease; ADMIT Internal Medicine Nephrology; ATTEND Internal Medicine Nephrology
PROC: 0W993ZZ Drainage of Right Pleural Cavity, Percutaneous Approach (ICD-10-PCS; principal; 2019-11-14)
DX: J90 Pleural effusion, not elsewhere classified (principal); J96.01 Acute respiratory failure with hypoxia; I50.23 Acute on chronic systolic (congestive) heart failure; N17.9 Acute kidney failure, unspecified; E87.1 Hypo-osmolality and hyponatremia; I11.0 Hypertensive heart disease with heart failure; I48.91 Unspecified atrial fibrillation; I73.9 Peripheral vascular disease, unspecified; E78.5 Hyperlipidemia, unspecified; I25.10 Atherosclerotic heart disease of native coronary artery without angina pectoris; D64.9 Anemia, unspecified; I25.5 Ischemic cardiomyopathy

== ENCOUNTER → 2019-12-28 18:43 | Outpatient (CLI) | payer MEDICARE, OTHER ==
[2019-11-16 10:40] VITALS: BMI 23.6
[~2019-12-28 18:43] MED LIST changes: +LASIX40 MG PO
[2019-12-28 19:17] LABS: CHOL - HDL RATIO 1.7 ratio (2.3-4.9); LDL-HDL RATIO 0.5 ratio (1.5-3.5)
== END | disposition home or self-care (01) ==
LOC: D.LABREF 18:43
PROVIDERS: ATTEND Internal Medicine Cardiovascular Disease
DX: I25.10 Atherosclerotic heart disease of native coronary artery without angina pectoris (principal)

== ENCOUNTER → 2020-02-22 10:28 | Outpatient (CLI) | payer MEDICARE, OTHER ==
[2019-11-16 10:40] VITALS: BMI 23.6
== END | disposition home or self-care (01) ==
LOC: D.RT 10:28
PROVIDERS: ATTEND Internal Medicine Pulmonary Disease
DX: R06.09 Other forms of dyspnea (principal); J44.9 Chronic obstructive pulmonary disease, unspecified

== ENCOUNTER → 2020-03-07 19:12 | Outpatient (CLI) | payer MEDICARE, OTHER ==
[2019-11-16 10:40] VITALS: BMI 23.6
[2020-03-07 20:08] LABS: ALBUMIN 3.7 g/dL (3.4-5.0); BILIRUBIN - DIRECT 0.39 mg/dL (0.00-0.30); BILIRUBIN - INDIRECT 0.89 mg/dL (0.00-1.00); BILIRUBIN - TOTAL 1.28 mg/dL (0.2-1.3); PROTEIN - SERUM 6.6 g/dL (6.4-8.2)
== END | disposition home or self-care (01) ==
LOC: D.LABREF 19:12
PROVIDERS: ATTEND Internal Medicine Pulmonary Disease
DX: E88.01 Alpha-1-antitrypsin deficiency (principal)

== ENCOUNTER → 2020-03-07 19:22 | Outpatient (CLI) | payer MEDICARE, OTHER ==
[2019-11-16 10:40] VITALS: BMI 23.6
== END | disposition home or self-care (01) ==
LOC: D.LABREF 19:22
PROVIDERS: ATTEND Internal Medicine Pulmonary Disease
DX: E88.01 Alpha-1-antitrypsin deficiency (principal)

== ENCOUNTER 2020-08-28 10:48 | Day surgery (SDC) | payer MEDICARE, OTHER ==
[~2020-08-28] VITALS: Ht 175.3 cm; Wt 81.2 kg
--- NOTE | ~2020-08-28 | HEMODYNAMI ---
PATIENT:JAZMIN SEGOVIA MEDICAL RECORD: [id number] : 38 LOCATION:[facility] ADMISSION DATE: 08/28/20 Generatedon:113:20 Patient name: JAZMIN SEGOVIA Patient #: [id number] : 1940 Date of study: 08/28/2020 Page: Of Hemodynamic Procedure Report Patient Data Patient Demographics Procedure consent was obtained First Name: JAZMIN Gender: Male Last Name: JULIETTE : 1940 Middle Initial: E Age: 80 year(s) Patient #: [id number] Race: SSN: [id number] Additional ID: [id number] Contact details [address]: [address] [place] [address] State: [place] City: [place] Zip code: [address] Past Medical History History of disease Date Diagnosis Comments CAD Allergies Allergen Reaction Date Comments Reported Other allergy 08/28/2020 AZITHROMYACIN Admission Admission Data Admission Date: 08/28/2020 Admission Time: 10:48 Arrival Date: 08/28/2020 Arrival Time: 0:00 Admit Source: Other Insurance Payor: Medicare [facility] #: [id number] Height (in.): 69 BSA: 1.97 (m2) Height (cm.): 175.26 BMI: 26.43 (kg/m2) Weight (lbs.): 178.97 Weight (kg.): 81.18 Lab Results Lab Result Date: 08/28/2020 Lab Result Time: 0:00 Biochemistry Name Units Result Min Max BUN mg/dl 18 --(---*)-- 7 18 Creatinine mg/dl 1.3 --(---*)-- 0.6 1.3 eGFR ml/min 56 *-(----)-- 90 120 NONAFRICAN CBC Name Units Result Min Max Hematocrit % 44 --(*---)-- 42 54 Hemoglobin g/dl 14.5 --(*---)-- 13.5 17.5 Procedure Procedure Types Cath Procedure Diagnostic Procedure Cardioversion External Procedure Description Procedure Date Procedure Date: 08/28/2020 Procedure Start Time: 13:06 Procedure End Time: 13:13 Procedure Staff Name Function Jake Do MD Performing Physician Alma Rosa Aguirre RT Monitor Aris Cameron RN Nurse Joel Maldonado CRNA Additional personnel Guillermina Alejo RT Scrub Procedure Data Cath Procedure Estimated blood loss: 0 ml Procedure Complications No complications Procedure Medications Medication Administration Route Dosage Oxygen etCO2 Nasal cannula 2 l/min 0.9% NaCl I.V. Refer to Anesthesia Notes for Sedation Medications Hemodynamics Rest BSA: 1.97 (m2) HGB: 14.5 (g/dl) O2 Consumption: Estimated: 221.35 (ml/min) O2 Consumption indexed: Estimated:112.36 (ml/min/m) Heart Rate: 65 (bpm) Snapshots Pre Cath Intra NCS Post Cath Vital Signs Time Heart Resp SPO2 etCO2 NIBP (mmHg) Rhythm Pain Sedation Rate (ipm) (%) (mmHg) Status Level (bpm) 12:56:45 50 16 96 25.8 112/67(98) A-Flutter 0 (11) 10(A) , No pain 13:00:51 50 19 97 25.1 124/72(96) A-Flutter 0 (11) 10(A) , No pain 13:04:59 69 10 96 16.7 123/77(103) A-Flutter 0 (11) 10(A) , No pain 13:09:07 83 17 93 9.1 103/71(91) A-Flutter 0 (11) 9(A) , No pain 13:13:14 48 24 96 10.6 105/51(77) A-Flutter 0 (11) 9(A) , No pain 13:17:08 20 96 9.1 No Cuff A-Flutter 0 (11) 10(A) , No pain 13:19:46 0 Aborted A-Flutter 0 (11) 10(A) , No pain Medications Time Medication Route Dose Verified Delivered Reason Notes Effective ness by by 12:55:40 Oxygen etCO2 2 Jake Hurst used for Nasal l/min Hi Cameron RN procedure cannula 12:55:50 0.9% NaCl I.V. kvo Jake Hurst Per ml/hr Hi Cameron RN physician 12:55:56 Refer to Jake Hurst Anesthesia Hi Cameron RN Notes for Sedation Medications Procedure Log Time Note 12::12 Informed consent obtained and on chart 12::25 Diagnostic Cath Status : Elective 12:24:45 Arrival Date: 08/28/2020 12:00:00 AM 12:24:48 Admit Source: Other 12::24 Patient Height : 69 inches 12::27 Patient Weight : 178.97 lbs 12:27:41 Insurance Payor : Medicare 12:28:08 ACC Patient presents with Unstable Angina CCS Anginal Class 2--Slight limitation of ordinary activity. 12:28:12 Procedure Status Cardioversion. 12::14 Time tracking: Regular hours (M-F 7:00 - 5:00) 12:28:19 Plan of Care:Hemodynamics will remain stable., Cardiac rhythm will remain stable., Comfort level will be maintained., Respiratory function will remain adequate., Patient/ family verbilizes understanding of procedure., Procedure tolerated without complication., Recovers from procedure without complications.. 12:28:27 H&P Date Dictated: 08/22/2020 Within 30 days and on chart.. 12:28:28 Pre-procedure instructions explained to patient. 12:28:28 Pre-op teaching completed and patient verbalized understanding. 12:28:30 Family unavailable. 12:28:31 Patient NPO since Midnight. 12:28:51 Patient allergic to Other allergyAZITHROMYACIN 12::55 Lab Result : Creatinine 1.3 mg/dl 12::55 Lab Result : BUN 18 mg/dl 12::55 Lab Result : eGFR NONAFRICAN 56 ml/min 12::55 Lab Result : Hemoglobin 14.5 g/dl 12::55 Lab Result : Hematocrit 44 % 12:30:00 Lab results completed and on chart. 12:30:04 Stress Test: no; N/A ? 12:30:06 Alarms reviewed by R. N. 12:30:06 Sharps counted by scrub and verified by R.N. 12:45:00 Aris Cameron RN sent for patient. Start room use. 12:50:36 Patient received from Pre/Post Procedure Room to CCL 2 Alert and oriented. Tansferred to table in Supine position. 12:50:41 Warm blankets applied, and jose maria hugger turned on for patient comfort. 12:50:42 Correct patient and procedure confirmed by team. 12:50:43 ECG and BP/O2 sat monitors applied to patient. 12:50:53 Patient pain scale 0/10 ?. 12:50:57 IV patent on arrival in left antecubital with 0.9% NaCl at KVO. 12:55:21 Is the patient allergic to Iodine/contrast media? No. 12:55:23 Was the patient premedicated? Yes 12:55:24 Is patient on blood thinner?Yes 12:55:27 ACC The patient was administered the following blood thiners within the last 24 hours: Eliquis 12:55:28 Vital chart was started 12:55:30 Patient diabetic? No. 12:55:32 If diabetic: On Metformin? N/A 12:55:33 ----Pre-sedation anethsthesia assessment.---- 12:55:36 Previous problem with sedation/anesthesia? No ? 12:55:38 Snore? Yes 12:55:39 Sleep apnea? No 12:55:40 Oxygen 2 l/min etCO2 Nasal cannula was administered by Aris Cameron RN; used for procedure; Verbal order read back and verified. 12:55:40 Deviated septum? No 12:55:42 Opens mouth fully? Yes 12:55:44 Sticks out tongue? Yes 12:55:46 Airway obstruction? No ? 12:55:50 0.9% NaCl kvo ml/hr I.V. was administered by Aris Cameron RN; Per physician; Verbal order read back and verified. 12:55:50 Dentures? Yes IN TIGHT 12:55:56 Refer to Anesthesia Notes for Sedation Medications was administered by Aris Cameron RN; ; Verbal order read back and verified. 12:55:56 Full Disclosure recording started 12:55:58 Baseline sample Acquired. 12:56:49 Rhythm: paced, atrial flutter 12:59:02 --------ALL STOP TIME OUT------ 12:59:06 Final Timeout: patient, procedure, and site verified with staff and physician. All members of the team are in agreement. 12:59:14 Mid Chest site verified by team. 12:59:17 Fire Safety Assessment: A--An alcohol-based skin anteseptic being used preoperatively., C--Open oxygen or nitrous oxide is being used., D--An ESU, laser, or fiber-optic light is being used. 12:59:21 Physical assessment completed. ASA score P 2 - A patient with mild systemic disease as per Jake Do MD. 12:59:31 Sedation plan: TIVA Medication:Propofol 13:03:50 Joel Maldonado CRNA present and monitoring patient for TIVA. 13:06:01 Quick Combo opened to sterile field. 13:06:01 Procedure started. 13:06:03 ------Cardioversion------ 13:06:11 Quick combo pads placed on patients chest and back. 13:08:08 Defibrillator synced and charged to 100 Joules. 13:08:09 Shock delivered. 13:10:28 Patient cardioverted to sinus bradycardia, paced. 13:11:33 Procedure ended.(Physican Out) 13:11:43 Post-procedure physical assessment completed. ASA score P 2 - A patient with mild systemic disease as per Jake Do MD. 13:11:48 Post procedure rhythm: sinus rhythm , paced 13:11:51 Estimated blood loss: 0 ml 13:11:52 Post procedure instruction explained to patient.Patient verbalizes understanding. 13:11:52 Patient needs reinforcement of post procedure teaching. 13:13:33 Procedure and supply charges have been captured, reviewed, submitted and are correct. 13:13:37 Procedure Complication : No complications 13:13:44 Operative report dictated upon procedure completion. 13:13:45 See physician's report for complete and final results. 13:13:48 Report given to Pre/Post Procedure Room. 13:13:54 Patient transfered to Pre/Post Procedure Room with Stretcher. 13:13:56 Procedure ended. 13:13:56 Full Disclosure recording stopped 13:14:02 End room use (Document Last) 13:20:25 Vital chart was stopped Device Usage Item Manufacture Quantity Catalog Hospital Part Current Minimal Lot# / Name Number Charge Number Stock Stock Seri al# Code [id number] 1 [id number] Combo Signature Audit [place] Stage Time Signature Unsigned Intra-Procedure 08/28/2020 Alma Rosa Aguirre 1:19:54 PM RT(R) Intra-Procedure 08/28/2020 Aris Cameron RN 1:20:10 PM Intra-Procedure 08/28/2020 Jake Do MD 1:20:24 PM Signatures Performing Physician : Signature : Jake Do MD Date : Time : Monitor : Alma Rosa Aguirre Signature : RT Date : Time : Nurse : Aris Cameron RN Signature : Date : Time : [place] [address] [place] [address]
[2020-08-28] MEDS ORDERED: AMIODARONE HCL200 MG PO (11:08)
[2020-08-28] MEDS ORDERED: FUROSEMIDE20 MG PO (11:09)
[2020-08-28] MEDS ORDERED: ELIQUIS2.5 MG PO (11:09)
[2020-08-28] MEDS ORDERED: K-TAB10 MEQ PO (11:10)
[2020-08-28] MEDS ORDERED: ULTRACET TABLE1 EAC1 PO (11:11)
[2020-08-28] MEDS ORDERED: CLARITIN 10 MG10 MG PO (11:12)
[2020-08-28 11:20] VITALS: BP 124/69; Ht 175.3 cm; Wt 81.2 kg
[2020-08-28 12:01] LABS: INR 1.36 (0.85-1.17); PROTIME 15.5 SECONDS (11.6-15.0)
[2020-08-28 12:04] LABS: ANION GAP 13.2 mmol/L (8-16); CALCIUM 8.9 mg/dL (8.5-10.1); CARBON DIOXIDE 28.3 mmol/L (21.0-32.0); CREATININE - SERUM 1.3 mg/dL (0.6-1.3); POTASSIUM - SERUM 3.5 mmol/L (3.5-5.1)
[2020-08-28 12:16] LABS: BASOPHILS 0.5 % (0-2); EOSINOPHILS 2.2 % (0-7); HEMOGLOBIN 14.5 g/dL (13.5-17.5); IMMATURE GRANULOCYTES 0.4 % (0-5); LYMPHOCYTE ABS# 1.35 10x3/uL (1.32-3.57); LYMPHOCYTES 14.2 % (15-50); MCH 29.4 pg (26.0-34.0); MCV 89.1 fL (80.0-100.0); MEAN PLATELET VOLUME 9.5 fL (7.4-10.4); MONOCYTES 9.3 % (2-11); NEUTROPHIL ABS# 6.98 10x3/uL (1.78-5.38); NEUTROPHILS 73.4 % (40-80); PLATELET COUNT 282 10x3/uL (130-400); RBC 4.94 10x6/uL (4.20-6.10); RDW 16.1 % (11.5-14.5); WBC 9.5 10x3/uL (4.8-10.8)
--- NOTE | 2020-08-28 13:23 | NUR ---
PT ARRIVED BY STRETCHER. PLACED ON MONITORS. ASSESSMENT COMPLETED. VSS AT THIS TIME. CALL LIGHT WITHIN REACH. HEAD OF BED INC TO 30 DEGREES.
--- NOTE | 2020-08-28 13:39 | NUR ---
PT RESTING COMFORTABLY. VSS. PT STILL IN SB. HR 52. BP STABLE AT 110/57. PT'S CALLED AND UPDATED ON DISCHARGE TIME.
--- NOTE | 2020-08-28 14:10 | NUR ---
PT STILL IN SB RHYTHM. VSS. JASMIN ROUNDED AND SPOKE WITH PT. PIV D/C'D WITH CATH TIP INTACT. TOLERATED WELL. ALL SKIN INTACT. NO REDNESS/BLISTERS NOTED. PT INSTRUCTED TO GET UP AND DRESSED AT THIS TIME. CALL LIGHT WITHIN REACH.
--- NOTE | 2020-08-28 14:15 | NUR ---
DISCUSSED DISCHARGE INSTRUCTIONS WITH PT. HE VOICED UNDERSTANDING. PT AMBULATED TO RESTROOM. VOIDED WITHOUT DIFFICULTY. STEADY GAIT NOTED.
--- NOTE | 2020-08-28 14:30 | NUR ---
PT TAKEN OUT TO VEHICLE BY WHEELCHAIR. NO S/S OF DISTRESS NOTED. ALL BELONGINGS AND PAPERWORK IN HAND. DISCUSSED DISCHARGE INSTRUCTIONS WITH PT'S ALSO. SHE VOICED UNDERSTANDING.
== END 2020-08-28 14:30 | disposition home or self-care (01) ==
LOC: D.CATH 10:48
PROVIDERS: ATTEND Internal Medicine Cardiovascular Disease
DX: I48.91 Unspecified atrial fibrillation (principal); I25.10 Atherosclerotic heart disease of native coronary artery without angina pectoris; Z95.0 Presence of cardiac pacemaker

== ENCOUNTER 2020-09-03 11:16 | Inpatient (IN) | payer MEDICARE, OTHER ==
[~2020-09-03] VITALS: Ht 175.3 cm; Wt 77.6 kg
[~2020-09-03 11:16] MED LIST changes: +AMIODARONE HCL200 MG PO; +CLARITIN 10 MG10 MG PO; +ELIQUIS2.5 MG PO; +FUROSEMIDE20 MG PO; +K-TAB10 MEQ PO; +ULTRACET TABLE1 EAC1 PO
[2020-09-03 11:39] VITALS: BP 116/60
[2020-09-03 12:01] LABS: BASOPHILS 0.1 % (0-2); EOSINOPHILS 0.1 % (0-7); HEMATOCRIT 39.7 % (42.0-54.0); HEMOGLOBIN 13.1 g/dL (13.5-17.5); IMMATURE GRANULOCYTES 0.3 % (0-5); LYMPHOCYTE ABS# 0.94 10x3/uL (1.32-3.57); LYMPHOCYTES 5.4 % (15-50); MCH 28.9 pg (26.0-34.0); MCV 87.6 fL (80.0-100.0); MEAN PLATELET VOLUME 10.1 fL (7.4-10.4); MONOCYTES 12.4 % (2-11); NEUTROPHIL ABS# 14.33 10x3/uL (1.78-5.38); NEUTROPHILS 81.7 % (40-80); PLATELET COUNT 301 10x3/uL (130-400); RBC 4.53 10x6/uL (4.20-6.10); RDW 16.1 % (11.5-14.5); WBC 17.6 10x3/uL (4.8-10.8)
[2020-09-03 12:19] LABS: APTT 30.6 SECONDS (22.8-39.4); INR 1.63 (0.85-1.17); PROTIME 17.9 SECONDS (11.6-15.0)
[2020-09-03 12:20] LABS: D-DIMER-QUANTITATIVE 0.79 ug/mLFEU (0.20-0.54)
--- NOTE | 2020-09-03 13:07 | NUR ---
PATIENT FAMILY CONCERNED THAT PATIENT MAY NOT NEED ABX UNTIL THERE IS A FIRM DIAGNOSIS. RISKS AND BENEFITS AND PURPOSE OF ANTIBIOTICS EXPLAINED TO PATIENT. PATIENT STATES THAT HE WANTS ABX. ABX STARTED AT THIS TIME.
[2020-09-03 13:10] LABS: CALC OSMOLALITY 275 mosm/kg (275-300); CALCIUM 8.5 mg/dL (8.5-10.1); CARBON DIOXIDE 26.5 mmol/L (21.0-32.0); CHLORIDE - SERUM 101 mmol/L (98-107); CREATININE - SERUM 1.4 mg/dL (0.6-1.3); GLUCOSE 106 mg/dL (74-106); POTASSIUM - SERUM 3.8 mmol/L (3.5-5.1); SODIUM 136 mmol/L (136-145); UREA NITROGEN 23 mg/dL (7-18); eGFR NON AFRICAN AMERICAN 52 mL/min (90-120)
--- NOTE | 2020-09-03 13:11 | NUR ---
ASSISTED TO POSITION OF COMFORT, WARM BLANKET X 2 GIVEN.
[2020-09-03 13:22] LABS: ALBUMIN 2.8 g/dL (3.4-5.0); ALKALINE PHOSPHATASE 71 U/L (30-120); ALT (SGPT) 25 U/L (10-68); BILIRUBIN - TOTAL 2.93 mg/dL (0.2-1.3); CKMB 0.1 U/L (0.0-3.6); CREATINE KINASE 56 UL (21-232); PRO BNP 6604 pg/mL (0-450); PROTEIN - SERUM 6.4 g/dL (6.4-8.2); TROPONIN-I < 0.017 ng/mL (0.000-0.060)
--- NOTE | 2020-09-03 14:52 | NUR ---
COVID ANTIGEN OBTAINED AND SENT TO LAB PER PROTOCOL.
[2020-09-03 15:21] LABS: SARS-CoV-2 ANTIGEN NEGATIVE- SARS-COV-2 (NEGATIVE)
--- NOTE | 2020-09-03 15:30 | NUR ---
ATTEMPTED TO CALL REPORT AT 1520, AGAIN AT 1530, ON HOLD FOR 10 MINUTES. CALLED BACK AT 1540 AND CALL WAS ANSWERED BY AMARI WHO IS THE RECEIVING NURSE. BEFORE REPORT COULD BE GIVEN AMARI ASKED IF PROTONIX HAD BEEN GIVEN EXPLAINED IT HAD NOT BECAUSE THE ORDERED WAS PLACED WHILE ATTEMPTING TO GIVE REPORT. REPORT WAS THEN GIVEN. PATIENT IN NO DISTRESS AT THIS TIME. TO BE TAKEN TO ROOM BY NICHOLE FERNANDES.
--- NOTE | 2020-09-03 16:30 | NUR ---
ARRIVE TO ROOM VIA STRETCHER. ALERT AND ORIENTED X4. AMBULATE TO BED. GAIT STEADY. REFUSE SCDs. RECIEVES ELIQUIS. COVID TEST OBTAINED AND TAKEN TO LAB. DENIES ANY NEEDS. NO SIGNS OF DISTRESS. CONTINUE PLAN OF CARE AND SAFETY PRECAUTIONS..
[2020-09-03] MEDS ORDERED: PROSCAR5 MG PO (16:34)
[2020-09-03 16:50] VITALS: BP 112/60; BMI 25.3
[2020-09-03 16:56] LABS: BASOPHILS 0.1 % (0-2); EOSINOPHILS 0 % (0-7); HEMATOCRIT 38.9 % (42.0-54.0); IMMATURE GRANULOCYTES 0.4 % (0-5); LYMPHOCYTE ABS# 0.73 10x3/uL (1.32-3.57); LYMPHOCYTES 4.7 % (15-50); MCH 29.5 pg (26.0-34.0); MCHC 33.4 g/dL (31.0-37.0); MCV 88.2 fL (80.0-100.0); MEAN PLATELET VOLUME 9.6 fL (7.4-10.4); MONOCYTES 7.2 % (2-11); NEUTROPHIL ABS# 13.58 10x3/uL (1.78-5.38); NEUTROPHILS 87.6 % (40-80); PLATELET COUNT 308 10x3/uL (130-400); RBC 4.41 10x6/uL (4.20-6.10); RDW 15.8 % (11.5-14.5); WBC 15.5 10x3/uL (4.8-10.8)
[2020-09-03 20:00] VITALS: BP 98/57
[2020-09-04] VITALS (7 sets, daily range): BP systolic 91–117; BP diastolic 50–77
[2020-09-04 04:54] LABS: BASOPHILS 0.1 % (0-2); EOSINOPHILS 0 % (0-7); HEMATOCRIT 35.4 % (42.0-54.0); HEMOGLOBIN 11.8 g/dL (13.5-17.5); IMMATURE GRANULOCYTES 0.3 % (0-5); LYMPHOCYTE ABS# 0.72 10x3/uL (1.32-3.57); LYMPHOCYTES 4.4 % (15-50); MCH 28.9 pg (26.0-34.0); MCHC 33.3 g/dL (31.0-37.0); MCV 86.8 fL (80.0-100.0); MEAN PLATELET VOLUME 9.4 fL (7.4-10.4); MONOCYTES 4.8 % (2-11); NEUTROPHIL ABS# 14.81 10x3/uL (1.78-5.38); NEUTROPHILS 90.4 % (40-80); PLATELET COUNT 300 10x3/uL (130-400); RBC 4.08 10x6/uL (4.20-6.10); RDW 15.7 % (11.5-14.5); WBC 16.4 10x3/uL (4.8-10.8)
[2020-09-04 05:20] LABS: ALBUMIN 2.6 g/dL (3.4-5.0); ANION GAP 10.6 mmol/L (8-16); BILIRUBIN - TOTAL 1.57 mg/dL (0.2-1.3); CALCIUM 8.5 mg/dL (8.5-10.1); CARBON DIOXIDE 25.8 mmol/L (21.0-32.0); CREATININE - SERUM 1.3 mg/dL (0.6-1.3); POTASSIUM - SERUM 3.4 mmol/L (3.5-5.1); PROTEIN - SERUM 6.4 g/dL (6.4-8.2)
--- NOTE | 2020-09-04 09:09 | NUR ---
NURSE IN ROOM WITH PATIENT. PATIENT COMPLAINS OF LEFT SIDED CHEST PAIN, HE STATES HE HAS HAD A HEART ATTACK IN THE PAST BUT HASNT HURT LIKE THIS IN A LONG TIME. NURSE CALLS DR MCKEON, WAITING FOR CALL BACK AND ORDERS.
[2020-09-04 09:55] LABS: CREATINE KINASE 71 UL (21-232)
[2020-09-04 09:57] LABS: TROPONIN-I < 0.017 ng/mL (0.000-0.060)
[2020-09-04 10:13] LABS: INR 1.3 (0.85-1.17)
--- NOTE | 2020-09-04 10:23 | NUR ---
NURSE RECHECKS BP AND ASKS PATIENT IF HIS CHESTPAIN IS BETTER AFTER THE NITRO. PATIENT STATES THAT IT IS.
--- NOTE | 2020-09-04 16:57 | NUR ---
NURSE CALLS HAYDEE TO TELL HER ABOUT PT'S HEART RACING.
--- NOTE | 2020-09-04 17:00 | NUR ---
NURSE TALKS WITH DR HICKMAN ABOUT PATIENT'S HOME MEDS. NURSE VERIFIES MEDS WITH MD AND PUTS ORDERS IN THE MEDS THE MD WANTS TO CONTINUE.
--- NOTE | 2020-09-04 17:16 | NUR ---
PATIENT TO CALL AND ASK WHAT HIS HEART RATE WAS I CALLED JYOTSNA IN THE ICU WHO SAID IT WAS UCAF 107. SHE ASKED WHY HE HAD NOT BEEN ON HIS MEDS AND I TOLD HER THAT WE C=WILL CALL THE DOCTOR AND ASK. KIMBERLEE, PRIMNARY NURSE PAGED THEM AND WILL CALL BACK.
--- NOTE | 2020-09-04 17:30 | NUR ---
NURSE REVIEWS THE HOME MEDS THE CARDIOLOGY MD WANTS TO CONTINUE FOR PATIENT. PATIENT'S IS VERY DISGRUNTAL, STATES SHE IS VERY UNHAPPY WITH EVERYTHING THAT HAS HAPPENED THAT THE HOME MEDS SHOULD HAVE BEEN RESTARTED. NURSE LETS PATIENT'S KNOW THAT WE ARE DOING EVERYTHING WE CAN TO MAKE SURE THIS IS NOT A PROBLEM. NURSE TO GIVE PO MEDS.
--- NOTE | 2020-09-04 19:35 | NUR ---
REPORT RECEIVED, WILL CONT POC. PT A&O, UP IN BED ON TABLET. NO S/S OF DISTRESS OBSERVED. RR EVEN AND UNLABORED ON RA, THOUGH PT COMPLAINS OF CHEST TIGHTNESS; WHEEZING AND DIMINISHED LUNG SOUNDS HEARD ON AUSCULTATION. O2 SAT 96%. BED LOCKED AND LOWERED, CL IN REACH. ASSESSMENT COMPLETED AT THIS TIME. WILL CONT TO MONITOR.
[2020-09-05 04:00] VITALS: BP 105/64
[2020-09-05 07:06] LABS: HEMATOCRIT 37.3 % (42.0-54.0); HEMOGLOBIN 12.3 g/dL (13.5-17.5); LYMPHOCYTE ABS# 1.01 10x3/uL (1.32-3.57); MCH 28.9 pg (26.0-34.0); MCV 87.6 fL (80.0-100.0); MEAN PLATELET VOLUME 9.7 fL (7.4-10.4); NEUTROPHIL ABS# 21.61 10x3/uL (1.78-5.38); PLATELET COUNT 399 10x3/uL (130-400); RBC 4.26 10x6/uL (4.20-6.10); RDW 15.8 % (11.5-14.5); WBC 24.7 10x3/uL (4.8-10.8)
[2020-09-05 07:13] LABS: ALBUMIN 2.8 g/dL (3.4-5.0); ANION GAP 11.5 mmol/L (8-16); BILIRUBIN - TOTAL 1.48 mg/dL (0.2-1.3); CALCIUM 8.7 mg/dL (8.5-10.1); CARBON DIOXIDE 26.8 mmol/L (21.0-32.0); CREATININE - SERUM 1.3 mg/dL (0.6-1.3); POTASSIUM - SERUM 4.3 mmol/L (3.5-5.1)
[2020-09-05 09:38] VITALS: BP 160/72
[2020-09-05 13:43] LABS: LYMPHOCYTES 14 % (15-50); MONOCYTES 10 % (2-11); NEUTROPHILS 76 % (40-80); PLATELET ESTIMATE NORMAL; ROULEAUX OCC
--- NOTE | 2020-09-05 14:05 | NUR ---
SPOKE WITH NURSE AND INSTRUCTED HER IF THORACENTESIS NEEDED WILL NEED TO BRIDGE WITH LOVENOX. ALSO WOULD LIKE COVID SEND OUT BACK BEFORE WE PROCEED
[2020-09-05 20:00] VITALS: BP 141/63
--- NOTE | 2020-09-05 21:00 | NUR ---
REPORT RECEIVED, WILL CONT POC. PT A&O, UP IN BED WATCHING TV. NO S/S OF DISTRESS OBSERVED. RR EVEN AND UNLABORED ON RA. BED LOCKED AND LOWERED, CL IN REACH. ASSESSMENT COMPLETED AT THIS TIME. WILL CONT TO MONITOR.
[2020-09-06 04:00] VITALS: BP 111/65
[2020-09-06 05:47] LABS: BASOPHILS 0.1 % (0-2); HEMATOCRIT 36.4 % (42.0-54.0); HEMOGLOBIN 11.9 g/dL (13.5-17.5); IMMATURE GRANULOCYTES 0.4 % (0-5); LYMPHOCYTE ABS# 1.12 10x3/uL (1.32-3.57); LYMPHOCYTES 7.2 % (15-50); MCH 28.7 pg (26.0-34.0); MCHC 32.7 g/dL (31.0-37.0); MCV 87.9 fL (80.0-100.0); MEAN PLATELET VOLUME 9.3 fL (7.4-10.4); MONOCYTES 9.6 % (2-11); NEUTROPHIL ABS# 12.74 10x3/uL (1.78-5.38); NEUTROPHILS 81.7 % (40-80); PLATELET COUNT 385 10x3/uL (130-400); RBC 4.14 10x6/uL (4.20-6.10); RDW 15.9 % (11.5-14.5)
[2020-09-06 06:10] LABS: WBC 15.6 10x3/uL (4.8-10.8)
[2020-09-06 07:32] LABS: ALBUMIN 2.7 g/dL (3.4-5.0); ANION GAP 13.7 mmol/L (8-16); BILIRUBIN - TOTAL 1.36 mg/dL (0.2-1.3); CALCIUM 8.6 mg/dL (8.5-10.1); CREATININE - SERUM 1.2 mg/dL (0.6-1.3); POTASSIUM - SERUM 3.7 mmol/L (3.5-5.1); PROTEIN - SERUM 6.4 g/dL (6.4-8.2)
[2020-09-06 08:28] VITALS: BP 108/62
[2020-09-06 08:39] VITALS: BP 108/62
[2020-09-06 12:31] VITALS: BP 113/68
[2020-09-06 16:01] VITALS: BP 110/62
--- NOTE | 2020-09-06 18:23 | NUR ---
PATIENT JUST FINISHED EATING DINNER. DENIES NEEDS. CALL LIGHT IN REACH
--- NOTE | 2020-09-06 21:15 | NUR ---
REPORT RECEIVED WILL CONT POC. PT A&O, ASLEEP IN BED. NO S/S OF DISTRESS OBSERVED. RR EVEN AND UNLABORED ON RA. BED LOCKED AND LOWERED, CL IN REACH. ASSESSMENT COMPLETED AT THIS TIME. WILL CONT TO MONITOR.
[2020-09-06 23:29] VITALS: BP 99/58
[2020-09-07 04:45] VITALS: BP 89/44
[2020-09-07 05:47] LABS: BASOPHILS 0 % (0-2); EOSINOPHILS 1.1 % (0-7); HEMATOCRIT 32.9 % (42.0-54.0); HEMOGLOBIN 10.8 g/dL (13.5-17.5); IMMATURE GRANULOCYTES 1.1 % (0-5); LYMPHOCYTE ABS# 1.08 10x3/uL (1.32-3.57); LYMPHOCYTES 7.2 % (15-50); MCH 28.6 pg (26.0-34.0); MCHC 32.8 g/dL (31.0-37.0); MEAN PLATELET VOLUME 9.3 fL (7.4-10.4); MONOCYTES 10.9 % (2-11); NEUTROPHIL ABS# 12.04 10x3/uL (1.78-5.38); NEUTROPHILS 79.7 % (40-80); PLATELET COUNT 368 10x3/uL (130-400); RBC 3.78 10x6/uL (4.20-6.10); RDW 15.7 % (11.5-14.5); WBC 15.1 10x3/uL (4.8-10.8)
[2020-09-07 05:51] LABS: ALBUMIN 2.4 g/dL (3.4-5.0); ANION GAP 12.6 mmol/L (8-16); BILIRUBIN - TOTAL 1.53 mg/dL (0.2-1.3); CALCIUM 8.1 mg/dL (8.5-10.1); CARBON DIOXIDE 24.1 mmol/L (21.0-32.0); CREATININE - SERUM 1.2 mg/dL (0.6-1.3); POTASSIUM - SERUM 3.7 mmol/L (3.5-5.1); PROTEIN - SERUM 5.8 g/dL (6.4-8.2)
[2020-09-07 15:00] VITALS: BP 132/70
--- NOTE | 2020-09-07 19:30 | NUR ---
PT IN BED, AAO X 3, RESP EVEN AND UNLABORED, NO DISTRESS NOTED, CL IN REACH, SR UP X 2.
--- NOTE | 2020-09-08 01:09 | NUR ---
I have reviewed this patient and I concur with the Shift Assessment completed by the Licensed Practical Nurse today this shift.
[2020-09-08 04:00] VITALS: BP 97/52
[2020-09-08 05:05] LABS: BASOPHILS 0 % (0-2); EOSINOPHILS 0.4 % (0-7); HEMATOCRIT 34.5 % (42.0-54.0); HEMOGLOBIN 11.4 g/dL (13.5-17.5); IMMATURE GRANULOCYTES 1.1 % (0-5); LYMPHOCYTE ABS# 0.83 10x3/uL (1.32-3.57); LYMPHOCYTES 5.3 % (15-50); MCH 28.8 pg (26.0-34.0); MCV 87.1 fL (80.0-100.0); MEAN PLATELET VOLUME 9.3 fL (7.4-10.4); NEUTROPHIL ABS# 13.09 10x3/uL (1.78-5.38); NEUTROPHILS 83.2 % (40-80); PLATELET COUNT 377 10x3/uL (130-400); RBC 3.96 10x6/uL (4.20-6.10); RDW 15.6 % (11.5-14.5); WBC 15.7 10x3/uL (4.8-10.8)
[2020-09-08 06:05] LABS: ALBUMIN 2.4 g/dL (3.4-5.0); ANION GAP 13.4 mmol/L (8-16); BILIRUBIN - TOTAL 1.41 mg/dL (0.2-1.3); CALCIUM 8.2 mg/dL (8.5-10.1); CARBON DIOXIDE 22.4 mmol/L (21.0-32.0); CREATININE - SERUM 1.3 mg/dL (0.6-1.3); POTASSIUM - SERUM 3.8 mmol/L (3.5-5.1); PROTEIN - SERUM 6.2 g/dL (6.4-8.2)
[2020-09-08 09:17] VITALS: BP 79/36; BP 83/54
--- NOTE | 2020-09-08 11:00 | NUR ---
LYING IN BED, AWAKE/ALERT/ORIENTED, T/R SELF AD RNO, CONT OF B/B WITH BRPs PER SELF AD RON, DENIES PAIN/OTHER DISCOMFORT AT THIS TIME, CALL LIGHT/PHONE WITHIN REACH, NO S/S OF ACUTE DISTRESS OBSERVED.
--- NOTE | 2020-09-08 13:00 | NUR ---
SOB, O2 SAT ON RA IS 98%, PUT ON O2 @ 2 LPM BUT CONT TO C/O SOB, TURNED O2 UP TO 6 LPM AND CALLED RT, EXPLAINED WHAT WAS NEEDED TO RT WHO THEN PUT ON HF O2, THIS NURSE CALLED PHYSICIAN, DR. MCKEON ORDERED TESSALON PEARLE 200 MG TID, A PFT, AND PULMONARY CONSULT, ORDERS WRITTEN ORDERED AFTER READ BACK SUCCESSFUL.
--- NOTE | 2020-09-08 14:15 | NUR ---
PT CONT TO COUGH SO MUCH THAT HE IS UNABLE TO BREATHE PROPERLY, HE REMOVED HF O2 AND CONT TO C/O HAVING A "LUNG INFECTION" FOR 3 DAYS THAT HE ACQUIRED "IN THIS HOSPITAL" WHEN ASKED WHAT HE CAME INTO HOSPITAL FOR HE STATED "I DON'T KNOW, I DON'T REMEMBER".
--- NOTE | 2020-09-08 15:43 | NUR ---
Spoke with pt for 15 minutes about new order for Cherrie Jesus, pt cont to c/o various complaints about how he has been "ignored" since he's been here, earlier attempted to get pt oxygen for his SOB even though his O2 Sat was 98% on room air, everything this nurse has attempted to assist pt to calm down and feel better has been met with scepticism and noncompliance, pt accused this nurse of yelling at him when I raised my voice to be heard above mask so I told him I would get him another nurse and he yelled at me that I'd better do "something". Informed the charge nurse that he needed another nurse and that I would trade a patient with another nurse but I will not continue to care for someone who threatens me.
--- NOTE | 2020-09-08 15:45 | NUR ---
RECEIVED REPORT FROM VERÓNICA CARR. PT LYING IN BED. AAOX4. O2 HIGH FLOW NC AT 6 LPM. RESP EVEN AND UNLABORED. PT DENIES PAIN OR ANY NEEDS AT THIS TIME. CLIR. BED IN LOWEST POSITION. SIDE RAILS X2
--- NOTE | 2020-09-08 15:55 | NUR ---
Spoke with Distillery Worker who gave permission to switch this pt with another nurse. Switched this pt to TANO Hurtado and gave report.
[2020-09-08 16:02] VITALS: BP 113/76
--- NOTE | 2020-09-08 19:38 | NUR ---
RECEIVED REPORT, WILL ASSUME CARE OF PT, TALKING ON PHONE, DENIES ANY NEEDS AT THIS TIME, BED IS LOW, SRX2, CALL LIGHT IN REACH, WILL CONTINUE PLAN OF CARE
[2020-09-08 20:57] VITALS: BP 109/66
[2020-09-09 00:13] VITALS: BP 99/50
--- NOTE | 2020-09-09 02:15 | NUR ---
I have reviewed this patient and I concur with the Shift Assessment completed by the Licensed Practical Nurse today this shift.
[2020-09-09 06:14] VITALS: BP 109/68
--- NOTE | 2020-09-09 08:00 | NUR ---
PT RECEIVED ASLEEP. AROUSE TO VOICE. NO COMPLAINTS AT PRESENT.
[2020-09-09 09:37] VITALS: BP 106/62
[2020-09-09 17:08] VITALS: BP 91/48
--- NOTE | 2020-09-09 19:16 | NUR ---
RECEIVED REPORT, WAS TOLD PT NEEDS 2 UNITS PRBC, WAS TOLD UNABLE TO RECEIVED CONSENT, PHONE DAUGHTER WAS ABLE TO GET CONSENT, VAISHALI RN WILL START INFUSE, DAUGHTER WAS CALLED BACK, WANTS PT TRANSER TO [facility], PAGED MICHELA
[2020-09-09 20:52] VITALS: BP 116/66
--- NOTE | 2020-09-09 22:00 | NUR ---
SPOKE WITH TO SEE IF NEW COVID TEST SHOULD BE ORDER AND SHOULD PT BE PLACED IN ISO, WAS TOLD NOT AT THIS TIME
[2020-09-10 05:41] VITALS: BP 91/58
[2020-09-10 06:21] LABS: FERRITIN 492 ng/mL (3-244); LDH 274 U/L (85-227)
[2020-09-10 09:28] VITALS: BP 96/61
[2020-09-10 16:32] VITALS: BP 94/54
--- NOTE | 2020-09-10 19:25 | NUR ---
RECEIVED REPORT, WILL ASSUME CARE OF PT, USING IS WAS ABLE TO REACH 1500, ALSO STATES IM READY TO GO HOME, DENIES ANY NEEDS AT THIS TIME, BED IS LOW, SRX2, CALL LIGHT IN REACH, WILL CONTINUE PLAN OF CARE
[2020-09-10 20:30] VITALS: BP 125/70
[2020-09-11] VITALS (8 sets, daily range): BP systolic 91–122; BP diastolic 39–79; Ht 175.3 cm; Wt 77.6 kg
--- NOTE | 2020-09-11 05:42 | NUR ---
I have reviewed this patient and I concur with the Shift Assessment completed by the Licensed Practical Nurse today this shift.
[2020-09-11 08:48] LABS: CALC OSMOLALITY 284 mosm/kg (275-300); CALCIUM 8.7 mg/dL (8.5-10.1); CARBON DIOXIDE 23.3 mmol/L (21.0-32.0); CHLORIDE - SERUM 107 mmol/L (98-107); GLUCOSE 114 mg/dL (74-106); SODIUM 139 mmol/L (136-145); UREA NITROGEN 29 mg/dL (7-18); eGFR NON AFRICAN AMERICAN 76 mL/min (90-120)
[2020-09-11 09:09] LABS: BASOPHILS 0 % (0-2); EOSINOPHILS 0 % (0-7); HEMATOCRIT 37.3 % (42.0-54.0); IMMATURE GRANULOCYTES 1.1 % (0-5); LYMPHOCYTE ABS# 1.41 10x3/uL (1.32-3.57); LYMPHOCYTES 5.4 % (15-50); MCH 28.6 pg (26.0-34.0); MCHC 32.2 g/dL (31.0-37.0); MEAN PLATELET VOLUME 9.5 fL (7.4-10.4); MONOCYTES 4.4 % (2-11); NEUTROPHILS 89.1 % (40-80); PLATELET COUNT 490 10x3/uL (130-400); RBC 4.19 10x6/uL (4.20-6.10); WBC 26.1 10x3/uL (4.8-10.8)
--- NOTE | 2020-09-11 22:18 | NUR ---
PT SITTING UP IN BED WATCHING TV. PT IS AAOX4. PT HAS OXYGEN IN PLACE, MEDICATIONS GIVEN. INCENTIVE SPIROMETER USED WITH NURSE AT BEDSIDE. PT EFFORT WAS GOOD. VOLUME WAS 400ML. PT DID NOT HAVE ANY FURTHER NEEDS AT THIS TIME.
--- NOTE | 2020-09-11 23:15 | NUR ---
BP RECHECKED AFTER METAL MINE INSPECTOR REPORTED LOW BLOOD PRESSURE 95/39. NURSE GOT BP OF 95/48 IN LEFT ARM. PT ASYMPTOMATIC AT THIS TIME. WILL CONTINUE TO MONITOR.
[2020-09-12 04:19] VITALS: BP 94/54
[2020-09-12 08:00] VITALS: BP 103/59
[2020-09-12 09:13] LABS: ANA REFLEX - DIRECT Negative (Negative)
[2020-09-12 11:00] VITALS: BP 104/62
[2020-09-12 15:00] VITALS: BP 94/45
--- NOTE | 2020-09-12 19:30 | NUR ---
PT UP IN CHAIR, AAO X 3, RESP EVEN AND UNLABORED, NO DISTRESS NOTED, CL IN REACH, SR UP X 2.
[2020-09-12 20:00] VITALS: BP 127/61
[2020-09-13 04:00] VITALS: BP 103/68
--- NOTE | 2020-09-13 04:15 | NUR ---
I have reviewed this patient and I concur with the Shift Assessment completed by the Licensed Practical Nurse today this shift.
[2020-09-13 06:20] LABS: HEMATOCRIT 38.9 % (42.0-54.0); HEMOGLOBIN 12.4 g/dL (13.5-17.5); LYMPHOCYTE ABS# 0.72 10x3/uL (1.32-3.57); MCH 28.4 pg (26.0-34.0); MCHC 31.9 g/dL (31.0-37.0); MCV 89.2 fL (80.0-100.0); MEAN PLATELET VOLUME 9.3 fL (7.4-10.4); NEUTROPHIL ABS# 22.49 10x3/uL (1.78-5.38); PLATELET COUNT 510 10x3/uL (130-400); RBC 4.36 10x6/uL (4.20-6.10); RDW 16.1 % (11.5-14.5); WBC 24.6 10x3/uL (4.8-10.8)
[2020-09-13 06:30] LABS: ALBUMIN 2.3 g/dL (3.4-5.0); ANION GAP 11.7 mmol/L (8-16); BILIRUBIN - TOTAL 0.56 mg/dL (0.2-1.3); CALCIUM 8.8 mg/dL (8.5-10.1); CARBON DIOXIDE 25.8 mmol/L (21.0-32.0); CREATININE - SERUM 1.1 mg/dL (0.6-1.3); POTASSIUM - SERUM 5.5 mmol/L (3.5-5.1); PROTEIN - SERUM 6.2 g/dL (6.4-8.2)
--- NOTE | 2020-09-13 07:30 | NUR ---
PATIENT IS SITTING UP IN CHAIR WORKING ON HIS IS . PLAN OF CARE REVIEWED AND ASSESSMENT HAS BEEN COMPLETED.PATIENT DENIES PAIN OR NEEDS,JUST WANTS TO GO HOME. CALL LIGHT IN REACH.
[2020-09-13 07:59] VITALS: BP 109/65
[2020-09-13 10:52] VITALS: BP 108/61
--- NOTE | 2020-09-13 11:02 | NUR ---
PAGE INTO DR ZEPEDA FOR POSSIBLE D/C ORDERS PATIENT WANTS TO GO HOME. AWAITING CALL BACK.
--- NOTE | 2020-09-13 11:08 | NUR ---
NIRMAL FOR DISCHARGE PER DR RICHTER, PAGE AGAIN INTO DR ZEPEDA FOR FINAL DISCHARGE ORDERS.
--- NOTE | 2020-09-13 11:48 | MORECARE ---
CASE MANAGEMENT DISCHARGE SUMMARY PATIENT: JAZMIN SEGOVIA UNIT: [id number] ADM DATE: 09/03/20 AGE: 80 : 39 SEX: M ROOM/BED: D.0778 AUTHOR: LYNNDOC PHYSICIAN: REFERRING PHYSICIAN: STANTON MCKEON MD DATE OF SERVICE: 09/13/20 Case Management Discharge Planning Summary DCP REVIEW SUMMARY ANTICIPATED D/C DATE: 09/13/2020 EXPECTED LOS : 10 CASE STATUS: DCP Initiated INITIAL REVIEW: 09/13/2020 INITIAL REVIEWER: Nelida Amaya FINAL DISCHARGE DISPOSITION: : FINAL REVIEWER: FINAL REVIEW DATE: DCP Focus Questions & Answers DCP REV -DCP Review Added on: 09/13/20 11:41 am QUESTION: ANSWER DCP Screen High Risk Factors: : None Walking limitation: Patient stated self rated walking limitation present? : No Age: : 79 + Prior living environment: : Lives with others Disability ranking: : Grade 1: No significant disability DCP Evaluation Patient's ability to cope with chronic illness : d. No chronic illness Mental health screen: : No mental health history Would patient like to participate in any Care Coordination programs (if applicable): : Not applicable Patient gives permission to discuss discharge plans with: (name, relationship and number) : Zenaida Segovia - spouse - [phone] Physical Status: : Independent with ADL's Baseline cognitive status: : *Oriented to person, place, situation, time and present Living arrangements comments: : With spouse Pharmacy name(s): : [facility] for [facility]f [facility]s. Does Patient have transportation to get home and to follow-up medical appointments when discharged from the hospital? : Yes Comments: : Spouse to transport home Equipment in use: : None Patient's current cognitive status: : *Oriented to person, place, situation, time and present Family / Caregiver's ability to cope with chronic illness: : a. Adequate (ability to meet patient's medical needs, ensures patient attends medical appts.) Does the patient have the ability to pay for or attain post discharge needs / services? : Yes Is there a likelihood that the patient will require additional services to return to the preadmission environment? : No Results of this evaluation have been discussed with: : Patient Patient and/or caregiver agree upon recommended discharge plan? : Yes Equipment needed for post hospitalization: : None DCP Re-evaluation Would patient like to participate in any Care Coordination programs (if applicable): : Not applicable PATIENT: JAZMIN SEGOVIA ENCOUNTER: [id number] MEDICAL RECORD#: [id number] ADMISSION DATE: 09/03/2020 DISCHARGE DATE: ATTENDING MD: CAIT: AGE: 80 MARITAL STATUS: M DC PLAN ID: [id number] FACILITY: [facility] PRINTED ON: 09/13/20 11:47 CT All edits/amendments must be made on the electronic document DICTATION DATE: 09/13/20 114 BUCKET TURNER: DM 09/13/20 1147 RPT#: [id number] DC DATE: STATUS: ADM IN [facility] [address] [place] [address] END OF REPORT
--- NOTE | 2020-09-13 11:56 | NUR ---
NURSE COMPLETES WALK TEST ON PATIENT. NURSE PAGES DR ZEPEDA TO REPORT GOOD RESULTS FROM TEST TO HIM.
--- NOTE | 2020-09-13 11:58 | MORECARE ---
CASE MANAGEMENT DISCHARGE SUMMARY PATIENT: JAZMIN CANADA UNIT: [id number] ADM DATE: 09/03/20 AGE: 80 : 39 SEX: M ROOM/BED: D.2139 AUTHOR: LYNN,DOC PHYSICIAN: REFERRING PHYSICIAN: STANTON MCKEON MD DATE OF SERVICE: 09/13/20 Case Management Discharge Planning Summary COMMENTS ENTERED DATE: 09/13/20 11:44 CT COMMENT TYPE: Discharge Planning REVIEWER: Nelida Amaya CM met with patient to complete initial dc planning assessment. CM educated patient on the CM role and verbal consent given by patient to complete assessment. CM verified patient's address, phone number, and emergency contact phone numbers. Patient lives at home with his spouse. At discharge patient plans to return and feels this is a safe discharge. CM discussed availability of home health, rehab services, and medical equipment. Patient denied known discharge needs at this time. Transportation provider at discharge will be his spouse. States his PCP is Dr. Mckeon. CM will continue to follow and will assist as needed with dc plans/needs. DCP REVIEW SUMMARY ANTICIPATED D/C DATE: 09/13/2020 EXPECTED LOS : 10 CASE STATUS: DCP Initiated INITIAL REVIEW: 09/13/2020 INITIAL REVIEWER: Nelida Amaya FINAL DISCHARGE DISPOSITION: : FINAL REVIEWER: FINAL REVIEW DATE: DCP Focus Questions & Answers DCP REV -DCP Review Added on: 09/13/20 11:41 am QUESTION: ANSWER DCP Screen High Risk Factors: : None Walking limitation: Patient stated self rated walking limitation present? : No Age: : 79 + Prior living environment: : Lives with others Disability ranking: : Grade 1: No significant disability DCP Evaluation Patient's ability to cope with chronic illness : d. No chronic illness Mental health screen: : No mental health history Would patient like to participate in any Care Coordination programs (if applicable): : Not applicable Patient gives permission to discuss discharge plans with: (name, relationship and number) : Zenaida [place] - spouse - [phone] Physical Status: : Independent with ADL's Baseline cognitive status: : *Oriented to person, place, situation, time and present Living arrangements comments: : With spouse Pharmacy name(s): : [facility]. Does Patient have transportation to get home and to follow-up medical appointments when discharged from the hospital? : Yes Comments: : Spouse to transport home Equipment in use: : None Patient's current cognitive status: : *Oriented to person, place, situation, time and present Family / Caregiver's ability to cope with chronic illness: : a. Adequate (ability to meet patient's medical needs, ensures patient attends medical appts.) Does the patient have the ability to pay for or attain post discharge needs / services? : Yes Is there a likelihood that the patient will require additional services to return to the preadmission environment? : No Results of this evaluation have been discussed with: : Patient Patient and/or caregiver agree upon recommended discharge plan? : Yes Equipment needed for post hospitalization: : None DCP Re-evaluation Would patient like to participate in any Care Coordination programs (if applicable): : Not applicable PATIENT: JAZMIN CANADA ENCOUNTER: [id number] MEDICAL RECORD#: [id number] ADMISSION DATE: 09/03/2020 DISCHARGE DATE: ATTENDING MD: : AGE: 80 MARITAL STATUS: M DC PLAN ID: [id number] FACILITY: [facility] PRINTED ON: 09/13/20 11:58 CT All edits/amendments must be made on the electronic document DICTATION DATE: 09/13/20 115 CLICKING MACHINE OPERATOR: BERNARDINO 09/13/20 1158 RPT#: [id number] DC DATE: STATUS: ADM IN [facility] [address] [place] [address] END OF REPORT
--- NOTE | 2020-09-13 12:09 | MORECARE ---
CASE MANAGEMENT DISCHARGE SUMMARY PATIENT: JAZMIN CANADA UNIT: [id number] ADM DATE: 09/03/20 AGE: 80 : 39 SEX: M ROOM/BED: D.2138 AUTHOR: LYNN,DOC PHYSICIAN: REFERRING PHYSICIAN: STANTON MCKEON MD DATE OF SERVICE: 09/13/20 Case Management Discharge Planning Summary COMMENTS ENTERED DATE: 09/13/20 12:05 CT COMMENT TYPE: Discharge Planning REVIEWER: Nelida Amaya Walk test done. His resting room air oxygen saturation is 95% and 92% with exertion. He does not qualify for home oxygen. ENTERED DATE: 09/13/20 11:44 CT COMMENT TYPE: Discharge Planning REVIEWER: Nelida Amaya CM met with patient to complete initial dc planning assessment. CM educated patient on the CM role and verbal consent given by patient to complete assessment. CM verified patient's address, phone number, and emergency contact phone numbers. Patient lives at home with his spouse. At discharge patient plans to return and feels this is a safe discharge. CM discussed availability of home health, rehab services, and medical equipment. Patient denied known discharge needs at this time. Transportation provider at discharge will be his spouse. States his PCP is Dr. Mckeon. CM will continue to follow and will assist as needed with dc plans/needs. DCP REVIEW SUMMARY ANTICIPATED D/C DATE: 09/13/2020 EXPECTED LOS : 10 CASE STATUS: DCP Initiated INITIAL REVIEW: 09/13/2020 INITIAL REVIEWER: Nelida Amaya FINAL DISCHARGE DISPOSITION: : FINAL REVIEWER: FINAL REVIEW DATE: DCP Focus Questions & Answers DCP REV -DCP Review Added on: 09/13/20 11:41 am QUESTION: ANSWER DCP Screen High Risk Factors: : None Walking limitation: Patient stated self rated walking limitation present? : No Age: : 79 + Prior living environment: : Lives with others Disability ranking: : Grade 1: No significant disability DCP Evaluation Patient's ability to cope with chronic illness : d. No chronic illness Mental health screen: : No mental health history Would patient like to participate in any Care Coordination programs (if applicable): : Not applicable Patient gives permission to discuss discharge plans with: (name, relationship and number) : Zenaida Canada - spouse - [phone] Physical Status: : Independent with ADL's Baseline cognitive status: : *Oriented to person, place, situation, time and present Living arrangements comments: : With spouse Pharmacy name(s): : [facility] for [facility] nursing meds. Does Patient have transportation to get home and to follow-up medical appointments when discharged from the hospital? : Yes Comments: : Spouse to transport home Equipment in use: : None Patient's current cognitive status: : *Oriented to person, place, situation, time and present Family / Caregiver's ability to cope with chronic illness: : a. Adequate (ability to meet patient's medical needs, ensures patient attends medical appts.) Does the patient have the ability to pay for or attain post discharge needs / services? : Yes Is there a likelihood that the patient will require additional services to return to the preadmission environment? : No Results of this evaluation have been discussed with: : Patient Patient and/or caregiver agree upon recommended discharge plan? : Yes Equipment needed for post hospitalization: : None DCP Re-evaluation Would patient like to participate in any Care Coordination programs (if applicable): : Not applicable PATIENT: JAZMIN CANADA ENCOUNTER: [id number] MEDICAL RECORD#: [id number] ADMISSION DATE: 09/03/2020 DISCHARGE DATE: ATTENDING MD: CAIT: AGE: 80 MARITAL STATUS: M DC PLAN ID: [id number] FACILITY: [facility] PRINTED ON: 09/13/20 12:09 CT All edits/amendments must be made on the electronic document DICTATION DATE: 09/13/201208 CHIEF SUSTAINABILITY OFFICER: BERNARDINO 09/13/201208 RPT#: [id number] DC DATE: STATUS: ADM IN [facility] [address] [place] [address] END OF REPORT
[2020-09-13 12:19] LABS: EOSINOPHILS 1 % (0-7); LYMPHOCYTES 9 % (15-50); MONOCYTES 5 % (2-11); NEUTROPHILS 83 % (40-80); PLATELET ESTIMATE INCREASED
[2020-09-13 13:12] LABS: PROCALCITONIN 0.08 ng/mL (0.00-0.08)
[2020-09-13] MEDS ORDERED: MEDROL DOSE PACK4 MG PO (13:12)
--- NOTE | 2020-09-13 14:29 | NUR ---
NURSE GIVES PATIENT DC INSTRUCTIONS, REMINDED PT OF DC APPOINTMENTS AND PATIENT TO LET NURSE KNOW WHEN HE IS READY TO GO HOME.
--- NOTE | 2020-09-13 14:52 | NUR ---
PATIENT BEING WHEELED OUT AT THIS TIME. BELONGINGS IN HAND. PATIENT TAKEN TO PERSONAL VEHICLE.
[2020-09-13 16:10] LABS: ANCA - ANTIMYELOPEROXIDASE <9.0 U/mL (0.0-9.0); ANCA - ANTIPROTEINASE 3 <3.5 U/mL (0.0-3.5); ANCA - ATYPICAL <1:20 titer (Neg:<1:20); ANCA - CYTOPLASMIC <1:20 titer (Neg:<1:20); ANCA - PERINUCLEAR <1:20 titer (Neg:<1:20)
--- NOTE | 2020-09-13 17:21 | MORECARE ---
CASE MANAGEMENT DISCHARGE SUMMARY PATIENT: JAZMIN CANADA UNIT: [id number] ADM DATE: 09/03/20 AGE: 80 : 39 SEX: M ROOM/BED: D.2138 AUTHOR: LYNN,DOC PHYSICIAN: REFERRING PHYSICIAN: STANTON MCKEON MD DATE OF SERVICE: 09/13/20 Case Management Discharge Planning Summary COMMENTS ENTERED DATE: 09/13/20 12:05 CT COMMENT TYPE: Discharge Planning REVIEWER: Nelida Amaya Walk test done. His resting room air oxygen saturation is 95% and 92% with exertion. He does not qualify for home oxygen. ENTERED DATE: 09/13/20 11:44 CT COMMENT TYPE: Discharge Planning REVIEWER: Nelida Amaya CM met with patient to complete initial dc planning assessment. CM educated patient on the CM role and verbal consent given by patient to complete assessment. CM verified patient's address, phone number, and emergency contact phone numbers. Patient lives at home with his spouse. At discharge patient plans to return and feels this is a safe discharge. CM discussed availability of home health, rehab services, and medical equipment. Patient denied known discharge needs at this time. Transportation provider at discharge will be his spouse. States his PCP is Dr. Mckeon. CM will continue to follow and will assist as needed with dc plans/needs. DCP REVIEW SUMMARY ANTICIPATED D/C DATE: 09/13/2020 EXPECTED LOS : 10 CASE STATUS: DCP Initiated INITIAL REVIEW: 09/13/2020 INITIAL REVIEWER: Nelida Amaya FINAL DISCHARGE DISPOSITION: : FINAL REVIEWER: FINAL REVIEW DATE: DCP Focus Questions & Answers DCP REV -DCP Review Added on: 09/13/20 11:41 am QUESTION: ANSWER DCP Screen High Risk Factors: : None Walking limitation: Patient stated self rated walking limitation present? : No Age: : 79 + Prior living environment: : Lives with others Disability ranking: : Grade 1: No significant disability DCP Evaluation Patient's ability to cope with chronic illness : d. No chronic illness Mental health screen: : No mental health history Would patient like to participate in any Care Coordination programs (if applicable): : Not applicable Patient gives permission to discuss discharge plans with: (name, relationship and number) : Zenaida [place] - spouse - [phone] Physical Status: : Independent with ADL's Baseline cognitive status: : *Oriented to person, place, situation, time and present Living arrangements comments: : With spouse Pharmacy name(s): : [facility] for [facility]. Does Patient have transportation to get home and to follow-up medical appointments when discharged from the hospital? : Yes Comments: : Spouse to transport home Equipment in use: : None Patient's current cognitive status: : *Oriented to person, place, situation, time and present Family / Caregiver's ability to cope with chronic illness: : a. Adequate (ability to meet patient's medical needs, ensures patient attends medical appts.) Does the patient have the ability to pay for or attain post discharge needs / services? : Yes Is there a likelihood that the patient will require additional services to return to the preadmission environment? : No Results of this evaluation have been discussed with: : Patient Patient and/or caregiver agree upon recommended discharge plan? : Yes Equipment needed for post hospitalization: : None DCP Re-evaluation Would patient like to participate in any Care Coordination programs (if applicable): : Not applicable PATIENT: JAZMIN CANADA ENCOUNTER: [id number] MEDICAL RECORD#: [id number] ADMISSION DATE: 09/03/2020 DISCHARGE DATE: 09/13/2020 ATTENDING MD: CAIT: 1941- AGE: 80 MARITAL STATUS: M DC PLAN ID: [id number] FACILITY: [facility] PRINTED ON: 09/13/20 17:21 CT All edits/amendments must be made on the electronic document DICTATION DATE: 09/13/201720 STEEPLECHASE JOCKEY: BERNARDINO 09/13/201720 RPT#: [id number] DC DATE:09/13/20 STATUS: DIS IN [facility] [address] [place] [address] END OF REPORT
== END 2020-09-13 14:57 | disposition home or self-care (01) | DRG 291 ==
LOC: D.ER 11:16 → D.M2 14:50
PROVIDERS: Family Medicine; General Practice; Internal Medicine Pulmonary Disease; Legal Medicine; ADMIT Emergency Medicine; ATTEND Emergency Medicine
DX: I50.23 Acute on chronic systolic (congestive) heart failure (principal); J18.9 Pneumonia, unspecified organism; J96.01 Acute respiratory failure with hypoxia; I25.10 Atherosclerotic heart disease of native coronary artery without angina pectoris; Z20.822 Contact with and (suspected) exposure to COVID-19; I48.91 Unspecified atrial fibrillation; Z95.810 Presence of automatic (implantable) cardiac defibrillator; D50.9 Iron deficiency anemia, unspecified; I73.9 Peripheral vascular disease, unspecified; E78.5 Hyperlipidemia, unspecified; I25.5 Ischemic cardiomyopathy

== ENCOUNTER 2020-11-14 23:14 | Inpatient (IN) | payer MEDICARE, OTHER ==
[~2020-11-14] VITALS: Ht 175.3 cm; Wt 74.8 kg
[~2020-11-14 23:14] MED LIST changes: +MEDROL DOSE PACK4 MG PO; +PROSCAR5 MG PO
[2020-11-14 23:58] LABS: BASOPHILS 1.4 % (0-2); EOSINOPHILS 1.7 % (0-7); HEMATOCRIT 41.1 % (42.0-54.0); HEMOGLOBIN 13.7 g/dL (13.5-17.5); LYMPHOCYTES 17.5 % (15-50); MCHC 33.2 g/dL (31.0-37.0); MCV 87.2 fL (80.0-100.0); MEAN PLATELET VOLUME 7.2 fL (7.4-10.4); MONOCYTES 9.6 % (2-11); NEUTROPHILS 69.8 % (40-80); RBC 4.71 10x6/uL (4.20-6.10); RDW 17.5 % (11.5-14.5); WBC 9.7 10x3/uL (4.8-10.8)
[2020-11-15] VITALS (9 sets, daily range): BP systolic 94–127; BP diastolic 49–86
[2020-11-15 00:01] LABS: CALC OSMOLALITY 276 mosm/kg (275-300); CALCIUM 8.9 mg/dL (8.5-10.1); CARBON DIOXIDE 24.6 mmol/L (21.0-32.0); CHLORIDE - SERUM 103 mmol/L (98-107); CREATININE - SERUM 1.1 mg/dL (0.6-1.3); GLUCOSE 110 mg/dL (74-106); PLATELET COUNT 346 10x3/uL (130-400); POTASSIUM - SERUM 3.9 mmol/L (3.5-5.1); SODIUM 137 mmol/L (136-145); UREA NITROGEN 19 mg/dL (7-18); eGFR NON AFRICAN AMERICAN 68 mL/min (90-120)
[2020-11-15 00:04] LABS: APTT 29.8 SECONDS (22.8-39.4); INR 1.3 (0.85-1.17)
[2020-11-15 00:19] LABS: ALBUMIN 3.1 g/dL (3.4-5.0); ALKALINE PHOSPHATASE 77 U/L (30-120); ALT (SGPT) 32 U/L (10-68); BILIRUBIN - TOTAL 0.67 mg/dL (0.2-1.3); CKMB 0.8 U/L (0.0-3.6); CREATINE KINASE 37 UL (21-232); MAGNESIUM - SERUM 2.3 mg/dL (1.8-2.4); PROTEIN - SERUM 6.4 g/dL (6.4-8.2)
[2020-11-15 00:21] LABS: TROPONIN-I < 0.017 ng/mL (0.000-0.060)
--- NOTE | 2020-11-15 04:30 | NUR ---
REPORT RECEIVED. PT A&0, UP IN BED. NO S/S OF DISTRESS OBSERVED. RR EVEN & UNLABORED ON RA. IV TO L FA PATENT, SL, SWAB CAP IN USE. CAF 78 ON TELE. BED LOCKED AND LOWERED, CL IN REACH. ASSESSMENT COMPLETE. WILL CONT POC.
[2020-11-15 09:02] LABS: EOSINOPHILS 1.4 % (0-7); HEMATOCRIT 40.2 % (42.0-54.0); HEMOGLOBIN 13.5 g/dL (13.5-17.5); LYMPHOCYTES 15.8 % (15-50); MCH 29.4 pg (26.0-34.0); MCHC 33.6 g/dL (31.0-37.0); MCV 87.4 fL (80.0-100.0); MEAN PLATELET VOLUME 7.3 fL (7.4-10.4); MONOCYTES 8.4 % (2-11); NEUTROPHILS 73.4 % (40-80); PLATELET COUNT 338 10x3/uL (130-400); RDW 17.2 % (11.5-14.5)
[2020-11-15 09:24] LABS: CALC OSMOLALITY 277 mosm/kg (275-300); CALCIUM 8.9 mg/dL (8.5-10.1); CHLORIDE - SERUM 105 mmol/L (98-107); GLUCOSE 94 mg/dL (74-106); POTASSIUM - SERUM 4.1 mmol/L (3.5-5.1); PRO BNP 2611 pg/mL (0-450); SODIUM 138 mmol/L (136-145); UREA NITROGEN 17 mg/dL (7-18); eGFR NON AFRICAN AMERICAN 76 mL/min (90-120)
[2020-11-16 04:17] VITALS: BP 79/53
[2020-11-16 08:28] VITALS: BP 94/51
[2020-11-16 12:23] VITALS: BP 90/54
[2020-11-16 13:16] LABS: BILIRUBIN NEGATIVE (NEGATIVE); KETONE NEGATIVE (NEGATIVE); NITRITE NEGATIVE (NEGATIVE); UROBILINOGEN NORMAL mg/dL (< 2)
[2020-11-16 13:21] VITALS: Ht 175.3 cm; Wt 74.8 kg
--- NOTE | 2020-11-16 13:43 | NUR ---
PATIENT WALKED 250 FEET WITH CGA WITHOUT ASST DEVICE.
--- NOTE | 2020-11-16 14:45 | NUR ---
NURSE REVIEWS DC INSTRUCTIONS WITH PATIENT AT THIS TIME. PATIENT'S IS IN THE ROOM. PATIENT DENIES QUESTIONS , NURSE REMINDS PATIENT OF FOLLOW UP APPT. PATIENT'S IV REMOVED WITH CATH TIP INTACT.
--- NOTE | 2020-11-16 15:00 | NUR ---
NURSE WHEELS PATIENT DOWNSTAIRS TO PATIENT'S PERSONAL VEHICLE. NAD NOTED. BELONGINGS IN HAND.
== END 2020-11-16 15:06 | disposition home or self-care (01) | DRG 310 ==
LOC: D.ER 23:14 → D.M2 11-15 00:44
PROVIDERS: Family Medicine; Legal Medicine; ADMIT Emergency Medicine; ATTEND Emergency Medicine
DX: I48.91 Unspecified atrial fibrillation (principal); I25.10 Atherosclerotic heart disease of native coronary artery without angina pectoris; I10 Essential (primary) hypertension; E78.5 Hyperlipidemia, unspecified; I25.5 Ischemic cardiomyopathy; R53.1 Weakness

== ENCOUNTER 2020-12-05 10:48 | Day surgery (SDC) | payer MEDICARE, OTHER ==
[~2020-12-05] VITALS: Ht 172.7 cm; Wt 77.2 kg
--- NOTE | ~2020-12-05 | HEMODYNAMI ---
PATIENT:JAZMIN SEGOVIA MEDICAL RECORD: [id number] : 38 LOCATION:DKaylanCAT ADMISSION DATE: 12/05/20 Generatedon:113:24 Patient name: JAZMIN SEGOVIA Patient #: [id number] : 1940 Date of study: 12/05/2020 Page: Of Hemodynamic Procedure Report Patient Data Patient Demographics Procedure consent was obtained First Name: JAZMIN Gender: Male Last Name: JULIETTE : 1940 Middle Initial: E Age: 80 year(s) Patient #: [id number] Race: SSN: [id number] Additional ID: [id number] Contact details Address: [address] [place] [address] State: [place] City: [place] Zip code: [address] Past Medical History History of disease Date Diagnosis Comments CAD Allergies Allergen Reaction Date Comments Reported Other allergy 08/28/2020 AZITHROMYACIN Admission Admission Data Admission Date: 12/05/2020 Admission Time: 10:48 Arrival Date: 12/05/2020 Arrival Time: 13:00 Admit Source: Other Insurance Payor: Medicare [facility] #: [id number] Height (in.): 69 BSA: 1.88 (m2) Height (cm.): 175.26 BMI: 23.63 (kg/m2) Weight (lbs.): 160 Weight (kg.): 72.57 Lab Results Lab Result Date: 12/05/2020 Lab Result Time: 0:00 Biochemistry Name Units Result Min Max BUN mg/dl 13 --(--*-)-- 7 18 Creatinine mg/dl 1.2 --(---*)-- 0.6 1.3 Procedure Procedure Types Cath Procedure Diagnostic Procedure Cardioversion External Procedure Description Procedure Date Procedure Date: 12/05/2020 Procedure Start Time: 13:08 Procedure End Time: 13:21 Procedure Staff Name Function Dennis Montenegro MD Performing Physician Guillermina Alejo RT Monitor Alma Rosa Aguirre RT Scrub Santino Vincent RN Nurse Kervin Casey MD Additional personnel Procedure Data Cath Procedure Estimated blood loss: 0 ml Procedure Complications No complications Procedure Medications Medication Administration Route Dosage 0.9% NaCl I.V. 25 ml/hr Refer to Anesthesia Notes for Sedation Medications Hemodynamics Rest BSA: 1.88 (m2) O2 Consumption: Estimated: 217.26 (ml/min) O2 Consumption indexed : Estimated:115.56 (ml/min/m) Heart Rate: 74 (bpm) Snapshots Pre Cath Intra NCS Post Cath Vital Signs Time Heart Resp SPO2 etCO2 NIBP Rhythm Pain Sedation Rate (ipm) (%) (mmHg) (mmHg) Status Level (bpm) 13:06:09 73 20 100 0 111/72(89) NSR 0 (11) 10(A) , No pain 13:10:13 105 16 100 19.4 112/64(90) NSR 0 (11) 10(A) , No pain 13:14:19 59 13 80 24.7 94/61(72) NSR 0 (11) 10(A) , No pain 13:16:40 60 12 98 9.7 92/50(66) NSR 0 (11) 10(A) , No pain 13:19:30 59 13 99 15.7 91/53(66) NSR 0 (11) 10(A) , No pain 13:20:37 58 13 99 17.2 91/53(63) NSR 0 (11) 10(A) , No pain Medications Time Medication Route Dose Verified Delivered Reason Notes Effectiven ess by by 13:06:55 0.9% NaCl I.V. 25 Dennis De used for ml/hr St Vahid Vincent RN procedure 13:08:44 Refer to Dennis De Anesthesia St Vahid Vincent RN Notes for Sedation Medications Procedure Log Time Note 12:35:20 Diagnostic Cath Status : Elective 12:35:40 Informed consent obtained and on chart 12:38:41 Arrival Date: 12/05/2020 1:00:00 PM 12:39:03 Admit Source: Other 12:39:06 Insurance Payor : Medicare 12:39:18 Patient Height : 69 inches 12:39:22 Patient Weight : 160 lbs 12:48:16 Lab Result : Creatinine 1.2 mg/dl 12:48:16 Lab Result : BUN 13 mg/dl 12:48:26 Procedure Status Cardioversion. 12:48:29 Santino Vincent RN sent for patient. Start room use. 12:48:30 Time tracking: Regular hours (M-F 7:00 - 5:00) 12:48:34 Plan of Care:Hemodynamics will remain stable., Cardiac rhythm will remain stable., Comfort level will be maintained., Respiratory function will remain adequate., Patient/ family verbilizes understanding of procedure., Procedure tolerated without complication., Recovers from procedure without complications.. 13:04:44 Patient received from Pre/Post Procedure Room to CCL 2 Alert and oriented. Tansferred to table in Supine position. 13:04:46 Warm blankets applied, and jose maria hugger turned on for patient comfort. 13:04:46 Correct patient and procedure confirmed by team. 13:04:59 ECG and BP/O2 sat monitors applied to patient. 13:05:00 Vital chart was started 13:05:02 Baseline sample Acquired. 13:05:09 Rhythm: atrial fibrillation 13:05:10 Full Disclosure recording started 13:05:14 H&P Date Dictated: 12/05/2020 Within 30 days and on chart., H&P Addendum completed by physician on day of procedure. (MUST COMPLETE FOR ALL OUTPATIENTS). 13:05:15 Pre-procedure instructions explained to patient. 13:05:16 Pre-op teaching completed and patient verbalized understanding. 13:05:22 Family in patients room. 13:06:05 --------ALL STOP TIME OUT------ 13:06:55 0.9% NaCl 25 ml/hr I.V. was administered by Santino Vincent RN; used for procedure; Verbal order read back and verified. 13:08:02 Kervin Casey MD present and monitoring patient for TIVA. 13:08:44 Refer to Anesthesia Notes for Sedation Medications was administered by Santino Vincent RN; ; Verbal order read back and verified. 13:08:46 Quick Combo opened to sterile field. 13:08:58 Procedure started. 13:09:06 Final Timeout: patient, procedure, and site verified with staff and physician. All members of the team are in agreement. 13:09:16 Is the patient allergic to Iodine/contrast media? No. 13:09:18 Is patient on blood thinner?Yes 13:09:22 ACC The patient was administered the following blood thiners within the last 24 hours: Eliquis 13:09:24 Patient diabetic? No. 13:09:26 Previous problem with sedation/anesthesia? No ? 13:09:28 Snore? Yes 13:09:29 Sleep apnea? No 13:09:30 Deviated septum? No 13:09:30 Opens mouth fully? Yes 13:09:31 Sticks out tongue? No 13:09:34 Airway obstruction? No ? 13:09:37 Dentures? No ? 13:09:44 IV patent on arrival in left forearm with 0.9% NaCl at [facility]. 13:09:48 Alarms reviewed by R. N. 13:09:48 Sharps counted by scrub and verified by R.N. 13:09:49 Physician arrived 13:09:54 Sedation plan: TIVA Medication:Propofol 13:09:58 Quick combo pads placed on patients chest and back. 13:10:06 Defibrillator synced and charged to 200 Joules. 13:10:46 Shock delivered. 13:11:37 Patient cardioverted to sinus rhythm . 13:12:00 Procedure ended.(Physican Out) 13:12:08 Sharps counted by scrub and verified by R.N. 13:12:10 Insertion/operative site no bleeding no hematoma. 13:12:16 Estimated blood loss: 0 ml 13:12:23 Post procedure rhythm: sinus rhythm 13:13:26 Post procedure instruction explained to patient.Patient verbalizes understanding. 13:13:27 Patient needs reinforcement of post procedure teaching. 13:14:07 Procedure and supply charges have been captured, reviewed, submitted and are correct. 13:14:12 Procedure Complication : No complications 13:21:05 Operative report dictated upon procedure completion. 13:21:05 See physician's report for complete and final results. 13:21:08 Report given to Pre/Post Procedure Room. 13:21:10 Patient transfered to Pre/Post Procedure Room with Stretcher. 13:21:13 Procedure ended. 13:21:13 Full Disclosure recording stopped 13:21:18 End room use (Document Last) 13:24:06 Vital chart was stopped Device Usage Item Manufacture Quantity Catalog Hospital Part Current Minimal Lot# / Name Number Charge Number Stock Stock Rober martins# Code Quick [facility] 1 [id number] Combo Signature Audit [place] Stage Time Signature Unsigned Intra-Procedure 12/05/2020 Guillermina Alejo 1:23:18 PM RT(R) Intra-Procedure 12/05/2020 Santino Vincent RN 1:23:41 PM Intra-Procedure 12/05/2020 Dennis Reynoso 1:24:04 PM Vahid KING Signatures Performing Physician : Signature : Dennis Montenegro MD Date : Time : Monitor : Guillermina Alejo RT Signature : Date : Time : Nurse : Santino Vincent RN Signature : Date : Time : [address] [address]
[2020-12-05 11:34] VITALS: BP 108/71; Ht 172.7 cm; Wt 77.2 kg
[2020-12-05 11:55] LABS: BASOPHILS 1.1 % (0-2); EOSINOPHILS 1.7 % (0-7); HEMATOCRIT 41.3 % (42.0-54.0); HEMOGLOBIN 13.6 g/dL (13.5-17.5); LYMPHOCYTES 15.1 % (15-50); MCH 29.1 pg (26.0-34.0); MCV 88.1 fL (80.0-100.0); MONOCYTES 10.6 % (2-11); NEUTROPHILS 71.5 % (40-80); PLATELET COUNT 316 10x3/uL (130-400); RBC 4.69 10x6/uL (4.20-6.10); RDW 17.1 % (11.5-14.5); WBC 10.7 10x3/uL (4.8-10.8)
[2020-12-05 12:05] LABS: ANION GAP 8.5 mmol/L (8-16); CALCIUM 8.7 mg/dL (8.5-10.1); CARBON DIOXIDE 29.9 mmol/L (21.0-32.0); CREATININE - SERUM 1.2 mg/dL (0.6-1.3); POTASSIUM - SERUM 4.4 mmol/L (3.5-5.1)
[2020-12-05 12:12] LABS: INR 1.34 (0.85-1.17); PROTIME 15.3 SECONDS (11.6-15.0)
--- NOTE | 2020-12-05 13:30 | NUR ---
PT ARRIVED TO CATH RECOVERY ROOM 3. MONITORING EQUIPMENT APPLIED. PT AOX4, FOLLOWS COMMANDS. ASSESSMENT COMPLETE. NO C/O PAIN OR NAUSEA. HR 62, PACED. SLIGHT REDNESS NOTED TO CHEST AND BACK. AT BEDSIDE. ST JORGENSEN ROUNDED AND UPDATED . CALL LIGHT WITHIN PT REACH.
--- NOTE | 2020-12-05 13:45 | NUR ---
PT AOX4, FOLLOWS COMMANDS. HR 63, NSR ON MONITOR. DENIES NAUSEA OR PAIN. NO ECTOPY. AT BEDSIDE.
--- NOTE | 2020-12-05 14:00 | NUR ---
PIV D/C'D WITH TIP INTACT. PT ALLOWED TO GET DRESSED INDEPENDENTLY.
--- NOTE | 2020-12-05 14:12 | NUR ---
DISCHARGE INSTRUCTIONS PROVIDED, AT BEDSIDE. PT AND BOTH VERBALIZE UNDERSTANDING.
--- NOTE | 2020-12-05 14:30 | NUR ---
PT DISCHARGED VIA WHEELCHAIR TO PRIVATE VEHICLE. ALL BELONGINGS AND PAPERWORK WITH PT
--- NOTE | 2020-12-05 14:32 | OP ---
PATIENT NAME: EFE SEGOVIA MEDICAL RECORD: [id number] :38 LOCATION:D.CAT ADMISSION DATE: SURGEON: JASPER LLOYD MD DATE OF OPERATION: 12/05/2020 PROCEDURE: Cardioversion. PROCEDURE IN DETAIL: After general sedation via TIVA via anesthesia, a single synchronized shock of 200 joules was successful restoring atrial fibrillation to normal sinus rhythm. IMPRESSION: Successful cardioversion note on Efe Segovia. During the procedure, the patient was monitored continuously with pulse oximetry, telemetry and noninvasive blood pressure monitoring. TRANSINT:[id number] Voice Confirmation ID: [id number] DOCUMENT ID: [id number] JASPER LLOYD MD at 1432 CC: [id number] DICTATION DATE: 12/05/20 1313 AUTOMATIC DATA PROCESSING PLANNER: 12/05/20 1418 REG [facility] [address] [place] [address]
== END 2020-12-05 14:30 | disposition home or self-care (01) ==
LOC: D.CATH 10:48
PROVIDERS: ATTEND Internal Medicine Interventional Cardiology
DX: I48.91 Unspecified atrial fibrillation (principal)

== ENCOUNTER 2020-12-07 12:36 | Emergency (ER) | payer MEDICARE, OTHER ==
[~2020-12-07] VITALS: Ht 172.7 cm; Wt 76.4 kg
[2020-12-07 12:41] VITALS: BP 103/60; Ht 172.7 cm; Wt 76.4 kg
[2020-12-07 13:30] LABS: EOSINOPHILS 1.1 % (0-7); HEMATOCRIT 40.6 % (42.0-54.0); HEMOGLOBIN 13.4 g/dL (13.5-17.5); LYMPHOCYTES 9.5 % (15-50); MCHC 32.9 g/dL (31.0-37.0); MEAN PLATELET VOLUME 7.2 fL (7.4-10.4); MONOCYTES 10.3 % (2-11); NEUTROPHILS 78.1 % (40-80); PLATELET COUNT 295 10x3/uL (130-400); RBC 4.62 10x6/uL (4.20-6.10); RDW 17.2 % (11.5-14.5); WBC 13.2 10x3/uL (4.8-10.8)
[2020-12-07 13:38] LABS: CALC OSMOLALITY 268 mosm/kg (275-300); CALCIUM 8.7 mg/dL (8.5-10.1); CHLORIDE - SERUM 99 mmol/L (98-107); CREATININE - SERUM 1.2 mg/dL (0.6-1.3); GLUCOSE 94 mg/dL (74-106); POTASSIUM - SERUM 4.1 mmol/L (3.5-5.1); SODIUM 134 mmol/L (136-145); UREA NITROGEN 14 mg/dL (7-18); eGFR NON AFRICAN AMERICAN 62 mL/min (90-120)
[2020-12-07 13:55] LABS: ALBUMIN 3.3 g/dL (3.4-5.0); ALKALINE PHOSPHATASE 97 U/L (30-120); ALT (SGPT) 34 U/L (10-68); BILIRUBIN - TOTAL 2.28 mg/dL (0.2-1.3); CKMB 0.5 U/L (0.0-3.6); CREATINE KINASE 40 UL (21-232); PRO BNP 3153 pg/mL (0-450); PROTEIN - SERUM 6.8 g/dL (6.4-8.2); TROPONIN-I < 0.017 ng/mL (0.000-0.060)
== END 2020-12-07 15:03 | disposition home or self-care (01) ==
LOC: D.ER 12:36
PROVIDERS: Family Medicine
DX: R60.0 Localized edema (principal); I50.9 Heart failure, unspecified; Z95.0 Presence of cardiac pacemaker; N40.0 Benign prostatic hyperplasia without lower urinary tract symptoms

== ENCOUNTER → 2020-12-18 10:22 | Outpatient (CLI) | payer MEDICARE, OTHER ==
[2020-12-07 12:41] VITALS: BMI 25.6
== END | disposition home or self-care (01) ==
LOC: D.RT 10:22
PROVIDERS: ATTEND Internal Medicine Pulmonary Disease
DX: R06.09 Other forms of dyspnea (principal); Z11.52 Encounter for screening for COVID-19